=== PATIENT | female | born 1970 | race African-American/Black ===

== ENCOUNTER 2016-11-27 22:05 | Inpatient (IN) | payer OTHER ==
[~2016-11-27] VITALS: Ht 175.3 cm; Wt 99.8 kg
--- NOTE | ~2016-11-27 | 2DMMODE ---
[facility] [address] [place] [address] 2 D/M-MODE ECHOCARDIOGRAM Name: EMILIANA IGNACIO Nahomi Room #: 430-P [facility]#: [id number] Admission: 11/27/16 Attend Phys: Nehemiah Dempsey, Discharge: 11/29/16 Date of : 66 Date of Service: 11/28/16 1635 Report #: [id number] THIS REPORT FOR: //name// APPROVED REPORT Study performed: 11/28/2016 13:34:36 EXAM: Comprehensive 2D, Doppler, and color-flow Echocardiogram Status: routine Other Information Study Quality: Good Risk Factors: Cardiac Risk Factors: HTN, DM Indications Congestive Heart Failure COPD Diabetes Hypertension/HDD 2D Dimensions RVDd: 34.42 mm LVEF(%): 70.95 (>50%) IVSd: 18.77 (7-11mm) LVOT Diam: 19.28 (18-24mm) LVDd: 33.08 mm PWd: 20.20 (7-11mm) Ascending Ao: 30.60 (22-36mm) LVDs: 20.10 (25-40mm) Aortic Root: 29.66 mm IVC: 13.00 mm Koch's LVEF: 70.95 % Volumes Left Atrial Volume (Systole) Single Plane 4CH: 65.65 mL Single Plane 2CH: 59.35 mL LA ESV Index: 31.00 mL/m2 Aortic Valve AoV Peak Chad.: 1.65 m/s AO Peak Gr.: 10.83 mmHg LVOT Max P.78 mmHg LVOT Max V: 1.48 m/s YONY Vmax: 2.63 cm2 Mitral Valve E/A Ratio: 0.8 [facility] [place] [place] [address] 2 D/M-MODE ECHOCARDIOGRAM Name: EMILIANA IGNACIO Room #: [address] [place] [address]#: [id number] Admission: 11/27/16 Attend Phys: Nehemiah Dempsey, Discharge: 11/29/16 Date of : 66 Date of Service: 11/28/16 1635 Report #: [id number] MV Decel. Time: 417.88 ms MV E Max Chad.: 0.90 m/s MV A Chad.: 1.20 m/s MV PHT: 121.19 ms IVRT: 133.79 ms Pulmonary Valve PV Peak Chad.: 1.34 m/s PV Peak Gr.: 7.18 mmHg IL End Vmax: 1.13 m/s Pulmonary Vein P Vein S: 0.37 m/s P Vein A: 0.24 m/s P Vein D: 0.21 m/s P Vein A Dur.: 120.0 msec P Vein S/D Ratio: 1.76 Tricuspid Valve RAP Estimate: 5.00 mmHg Left Ventricle The left ventricle is normal size. Severe concentric left ventricular hypertrophy. Left ventricular systolic function is hyperdynamic. LVEF is >70%. Grade I - abnormal relaxation pattern. Right Ventricle The right ventricle is normal size. The right ventricular systolic function is normal. Atria The left atrium size is normal. The right atrium size is normal. Aortic Valve The aortic valve is normal in structure. No aortic regurgitation is present. There is no aortic valvular stenosis. Mitral Valve The mitral valve is normal in structure. Trace mitral regurgitation. No evidence of mitral valve stenosis. Tricuspid Valve The tricuspid valve is normal in structure. Trace tricuspid regurgitation. Unable to assess PA pressure. Pulmonic Valve The pulmonary valve is normal in structure. Trace pulmonic regurgitation. [place] [id number] 2 D/M-MODE ECHOCARDIOGRAM Name: EMILIANA IGNACIO Room #: 430-P [facility] IN ..#: [id number] Admission: 11/27/16 Attend Phys: Nehemiah Dempsey, Discharge: 11/29/16 Date of : 66 Date of Service: 11/28/16 1635 Report #: [id number] Great Vessels The aortic root is normal in size. IVC is normal in size and collapses >50% with inspiration. Pericardium Trace pericardial effusion. <Conclusion> The left ventricle is normal size. LVEF is >70%. The aortic valve is normal in structure. The mitral valve is normal in structure. The tricuspid valve is normal in structure. Trace tricuspid regurgitation. Unable to assess PA pressure. The pulmonary valve is normal in structure. Trace pulmonic regurgitation. <ELECTRONICALLY SIGNED> By: Jeff Yañez MD 11/28/16 1635 1635 1635 Jeff Yañez MD /INF
--- NOTE | ~2016-11-27 | H ---
[facility] [place] [place] [address] HISTORY AND PHYSICAL Name: EMILIANA IGNACIO Room #: 430-P ADM IN M.R.#: [id number] Admission: 11/27/16 Attend Phys: Nehemiah Dempsey MD Discharge: Date of : 66 Report #: [id number] THIS REPORT FOR: //name// CC: Nehemiah Harman DICTATED BY: Corinne BARRERA ATTENDING PHYSICIAN: Dejan Bruner M.D. PRIMARY CARE PHYSICIAN: Mony Harman M.D. CHIEF COMPLAINT: Chest pain. HISTORY OF PRESENT ILLNESS: The patient is a 46-year-old female who came in to the ER, complaining of chest pain. It actually started yesterday morning while she was doing the dishes. The pain was mostly in her mid chest and went to her left shoulder. It was intermittent, on and off throughout the rest of the day. It seemed to get worse with exertion and better with rest. She did take an aspirin at home. Some episodes made her feel short of breath and nauseated. She denied any vomiting. She has never had this type of pain before. She has a history of mild SC in the past, but has never had any stent. She had a heart catheterization about 8 years ago and was told she has some small blockages. She last had a stress test in 2013, which was negative. She does take a daily aspirin. She was evaluated in the ER and continues to have some pain, has been admitted for further cardiac evaluation. She does admit to cocaine use; the last use was about a week ago. PAST MEDICAL HISTORY: Chronic kidney disease stage 4, CHF with unknown EF, mild coronary artery disease, hypertension, diabetes, hyperlipidemia, duodenitis and heart murmur. PAST SURGICAL HISTORY: and cardiac catheterization. ALLERGIES: BACTRIM and PENICILLIN. HOME MEDICATIONS: Humalog insulin 5 units with meals, [place] 7.5/325 p.r.n., Levemir insulin 8 units at bedtime, albuterol nebulizer q. 4 hours p.r.n., Lexapro 40 mg daily, Neurontin 300 mg daily, Prilosec 40 mg daily, senna daily, trazodone 100 mg at bedtime, Flexeril p.r.n., MiraLax daily, Cardura 2 mg p.o. b.i.d., Cymbalta 20 mg daily, Lasix 40 mg daily, hydralazine 50 mg t.i.d., amlodipine 10 mg daily, aspirin 325 mg daily, iron 325 mg daily, Imdur 30 mg daily, Lidocaine patch daily and metolazone 2.5 mg daily. SOCIAL HISTORY: The patient smokes cigarettes up to a half pack per day. She has been smoking since the age of 18. She does admit to cocaine use. Last use was about a week ago. She also smokes marijuana 1-2 times per month. Her last [facility] [address] [place] [address] HISTORY AND PHYSICAL Name: EMILIANA IGNACIO Room #: 430-P [facility] IN ..#: [id number] Admission: 11/27/16 Attend Phys: Nehemiah Dempsey MD Discharge: Date of : 66 Report #: [id number] use was about 3 weeks ago. She lives at home with her son, [id number] and grandson. She is on disability. She gets around using a cane or a wheeled walker if she goes outside. FAMILY HISTORY: Her father is from [place]. He was also a diabetic. Her mother had diabetes with renal failure, requiring hemodialysis. She has also had a stroke. All of her aunts and uncles have been diabetic as well. REVIEW OF SYSTEMS: A 12-point review of systems was reviewed with the patient, otherwise negative unless stated in the HPI. PHYSICAL EXAMINATION: GENERAL: The patient is an alert female, in no acute distress. VITAL SIGNS: Temperature is 36.6, heart rate 75, respirations 18, blood pressure is 138/85 and oxygen 99% on room air. HEENT: PERRLA. Sclerae are nonicteric. Oral mucosa is pink and moist. NECK: Supple. No JVD noted. CARDIAC: Normal S1, S2 with a 3/6 systolic ejection murmur. RESPIRATORY: Breath sounds are clear, diminished in both bases. Breathing is nonlabored. ABDOMEN: Obese, soft, nontender and nondistended with positive bowel sounds. VASCULAR: No edema noted. Pedal pulses are 2+. NEUROLOGIC: The patient is alert and oriented times 3. Speech is clear. She is moving all extremities equally. No focal neuro deficits noted. SKIN: Intact. No rashes or lesions. LABS AND DIAGNOSTICS: WBC is 4.7, hemoglobin 10.1 and platelets 189,000. Sodium 139, potassium 3.8, BUN 36 and creatinine 3.4. Troponins negative. BNP is 2758. EKG shows sinus rhythm with some nonspecific ST changes. Chest x-ray showed no acute cardiopulmonary process. ASSESSMENT AND PLAN: 1. Chest pain. This does persist. She has not had any recent cardiac workup. So, we will go ahead and order a stress test for morning. If it is abnormal, consult cardiology. We will also check an echocardiogram, check urine drug screen since she does have a history of cocaine use, which may be contributing to her chest pain. Continue with aspirin daily. Check lipid panel and hemoglobin A1c. 2. Congestive heart failure. EF is unknown. She does have elevated BNP, but no signs of acute fluid overload. Check an echocardiogram. 3. Hypertension. Blood pressure is stable. Continue home medications. 4. Chronic kidney disease stage 4. The patient states she is in discussion about getting a fistula placed for future dialysis at some point. So far her creatinine is stable. Follow labs. 5. Substance and tobacco abuse. The patient has been advised to quit. Check urine drug screen. [address] [address] HISTORY AND PHYSICAL Name: EMILIANA IGNACIO Room #: 430-P [facility] IN ..#: [id number] Admission: 11/27/16 Attend Phys: Nehemiah Dempsey MD Discharge: Date of : 66 Report #: [id number] 6. Diabetes. Blood sugars are elevated. Check hemoglobin A1c. Resume home insulin regimen and add sliding scale insulin. 7. Hyperlipidemia. Continue statin therapy and check a lipid panel. 8. Deep venous thrombosis prophylaxis, place SCDs. We will continue to follow the patient closely throughout the hospitalization and make changes based on clinical status. <ELECTRONICALLY SIGNED> By: Dejan Bruner MD 11/28/16 1424 0843 [id number] Dejan Bruner MD /nt
--- NOTE | ~2016-11-27 | EKG ---
[address] [place] [address] ELECTROCARDIOGRAM REPORT Name: EMILIANA IGNACIO Room #: 430-[facility] IN M.R.#: [id number] Admission: 11/27/16 Attend Phys: Nehemiah Dempsey MD Discharge: 11/29/16 Date of : 66 Report #: [id number] THIS REPORT FOR: //name// [facility] Test Date: 2016-11-28 Test Time: 09:36:14 Pat Name: EMILIANA IGNACIO Department: Room: 430 P Gender: F Teaching Music Lessons: miguel : 1970 Requested By: Corinne Ospina Order Number: [id number] MD: Brandon Pederson Measurements Intervals [place] Rate: 57 P: 51 ID: 224 QRS: 10 QRSD: 94 T: 106 QT: 524 QTc: 511 Interpretive Statements Sinus rhythm Prolonged ID interval Probable anterior infarct, old Abnormal T, consider ischemia, lateral leads Prolonged QT interval Compared to ECG 12/31/2010 06:59:48 no significant change was found Electronically Signed On 11-30-2016 8:02:37 CDT by Brandon Pederson [email or web address] <ELECTRONICALLY SIGNED> By: Brandon Pederson MD, [facility] 11/30/16 0802 0936 0936 Brandon Pederson MD, [facility] /EPI
--- NOTE | ~2016-11-27 | EKG ---
[place] [address] [address] [facility] [place] [address] ELECTROCARDIOGRAM REPORT Name: EMILIANA IGNACIO Room #: 430-P [facility] IN M.R.#: [id number] Admission: 11/27/16 Attend Phys: Nehemiah Dempsey MD Discharge: Date of : 66 Report #: [id number] THIS REPORT FOR: //name// [facility] ED Test Date: 2016-11-27 Test Time: 22:02:56 Pat Name: EMILIANA IGNACIO Department: Room: 430 Gender: F Skate Shop Attendant: Lurdes PEREZ : 1970 Requested By: Kesha Soni Order Number: [id number] MD: Brandon Pederson Measurements Intervals [place] Rate: 76 P: 8 KS: 180 QRS: -24 QRSD: 87 T: 101 QT: 454 QTc: 511 Interpretive Statements Sinus rhythm LVH with secondary repolarization abnormality Inferior infarct, old Anteroseptal infarct, age indeterminate Prolonged QT interval No previous ECGs available for comparison Electronically Signed On 11-29-2016 8:45:14 CDT by Brandon Pederson [email or web address] <ELECTRONICALLY SIGNED> By: Brandon Pederson MD, [facility] 11/29/16 0845 01 01 Brandon Pederson MD, [facility] /EPI
[~2016-11-27 22:05] MED LIST: ACETYLCYST200 MG/1 M PO; ADULT LOW DOSE81 MG PO; AMBIEN 10 MG TA10 MG PO; BENICAR HCT 401 EAC1 PO; BYSTOLIC10 MG PO; CLONIDINE PO; HYDROCODON-ACE1 EAC7 PO; LANTUS SC; MAALOX SUSPENS148 ML PO; NORVASC 5 MG TAB5 MG PO; NORVASC10 MG PO; NOVOLOG100 UNIT/1 SQ; PROTONIX40 M2 PO; TOPROL XL25 MG PO; VICODIN PO; ZOCOR 20 MG TAB20 M1 PO
[2016-11-27 22:22] VITALS: BP 134/85
[2016-11-27 22:49] LABS: ABSOLUTE NEUTROPHILS 2.7 thou/uL (1.4-8.2); EOSINOPHILS 5.2 % (0.0-3.0); HEMATOCRIT 29.8 % (37.0-47.0); HEMOGLOBIN 10.1 gm/dL (12.0-15.0); LYMPHOCYTES 30.2 % (24.0-44.0); MANUAL DIFF NO; MCH 26.8 pg (26.0-34.0); MCHC 33.9 g/dL (28.0-37.0); MCV 79.1 fL (80.0-100.0); MONOCYTES 6.8 % (1.0-8.0); PLATELET COUNT 189 thou/uL (150-400); POLYS 56.8 % (36.0-66.0); RBC 3.76 mil/uL (4.20-5.00); RDW 14.8 % (10.5-14.5); WBC 4.7 thou/uL (4.0-11.0)
[2016-11-27 22:54] LABS: ANION GAP 11 mmol/L (7-16); BUN 36 mg/dL (7-18); CALCIUM 8.1 mg/dL (8.5-10.1); CHLORIDE 107 mmol/L (98-107); CO2 21 mmol/L (21-32); CREATININE 3.4 mg/dL (0.6-1.0); GLUCOSE 252 mg/dL (74-106); POTASSIUM 3.8 mmol/L (3.5-5.1); SODIUM 139 mmol/L (136-145)
[2016-11-27 23:05] LABS: NT-PRO BRAIN NAT PEPTIDE 2758 pg/mL (<300); TROPONIN-I < 0.04 ng/mL (<0.04-0.07)
[2016-11-28] MEDS ORDERED: HUMALOG100 UNIT/1 SUBQ (00:10)
[2016-11-28] MEDS ORDERED: LEVEMIR SUBQ (00:11)
[2016-11-28] MEDS ORDERED: HYDROCODONE-APA1 TA1 (00:11)
[2016-11-28] MEDS ORDERED: ATIVAN0.5 M1 (00:12)
[2016-11-28] MEDS ORDERED: ROBITUSSIN DM118 ML PO (00:13)
[2016-11-28] MEDS ORDERED: OXYCODONE-ACET1 EAC2 PO (00:13)
[2016-11-28] MEDS ORDERED: LEXAPRO20 MG PO (00:14)
[2016-11-28] MEDS ORDERED: ALBUTEROL2.5 MG/31 INH (00:14)
[2016-11-28] MEDS ORDERED: NEURONTIN 300300 M1 (00:15)
[2016-11-28] MEDS ORDERED: PRAVACHOL40 MG (00:16)
[2016-11-28] MEDS ORDERED: SENEXON-S TABL1 EACH (00:24)
[2016-11-28] MEDS ORDERED: TRAZODONE HCL100 MG (00:25)
[2016-11-28] MEDS ORDERED: BISAC-EVAC10 MG RECTAL (00:26)
[2016-11-28] MEDS ORDERED: FLEXERIL (00:26)
[2016-11-28] MEDS ORDERED: COREG25 MG PO (00:28)
[2016-11-28] MEDS ORDERED: CARDURA4 MG PO (00:28)
[2016-11-28] MEDS ORDERED: MIRALAX17 GM PO (00:28)
[2016-11-28] MEDS ORDERED: CYMBALTA20 MG (00:29)
[2016-11-28] MEDS ORDERED: LASIX 40 MG TAB40 M2 PO (00:29)
[2016-11-28] MEDS ORDERED: FUROSEMIDE 40 M40 M1 PO (00:29)
[2016-11-28] MEDS ORDERED: IRON325 PO (00:30)
[2016-11-28] MEDS ORDERED: ASPIRIN325 PO (00:30)
[2016-11-28] MEDS ORDERED: AMLODIPINE BESY10 MG PO (00:30)
[2016-11-28] MEDS ORDERED: HYDRALAZINE 5050 MG PO (00:30)
[2016-11-28] MEDS ORDERED: LIDODERM 5%1 PATC1 TRANSDERM (00:31)
[2016-11-28] MEDS ORDERED: IMDUR 30 MG TAB30 M1 PO (00:31)
[2016-11-28] MEDS ORDERED: NEURONTIN600 MG (00:31)
[2016-11-28] MEDS ORDERED: METOLAZONE 2.52.5 M1 (00:32)
[2016-11-28 01:11] VITALS: BP 183/89
[2016-11-28 01:31] VITALS: BP 183/89
[2016-11-28 04:24] LABS: AMP/METHAMP Negative (Negative); BARBITURATES Negative (Negative); BENZODIAZEPINES Negative (Negative); COCAINE POSITIVE (Negative); METHADONE Negative (Negative); OPIATES POSITIVE (Negative); PCP Negative (Negative); THC Negative (Negative)
[2016-11-28 04:35] VITALS: BP 195/86
[2016-11-28 06:36] LABS: CHOLESTEROL 180 mg/dL (<200); HDL CHOLESTEROL 43 mg/dL (>40); LDL CHOLESTEROL 111 mg/dL (<100); TC:HDL 4.2 Ratio (Not establshd); TRIGLYCERIDE 130 mg/dL (<150); TROPONIN-I < 0.04 ng/mL (<0.04-0.07); VLDL 26 mg/dL (<40)
[2016-11-28 08:20] VITALS: BP 174/79
[2016-11-28 12:20] VITALS: BP 188/78
[2016-11-28 19:54] VITALS: BP 130/80
[2016-11-29 03:09] LABS: GLYCOHEMOGLOBIN (HGB A1C) 6.7 % (4.8-5.6)
[2016-11-29 04:00] VITALS: BP 142/70
[2016-11-29 07:33] VITALS: BP 154/78
[2016-11-29 09:44] LABS: HEMATOCRIT 31.2 % (37.0-47.0); HEMOGLOBIN 10.4 gm/dL (12.0-15.0); MCH 26.7 pg (26.0-34.0); MCHC 33.2 g/dL (28.0-37.0); MCV 80.3 fL (80.0-100.0); RBC 3.89 mil/uL (4.20-5.00); RDW 15.3 % (10.5-14.5)
[2016-11-29 10:04] LABS: ALBUMIN 3.3 g/dL (3.4-5.0); CALCIUM 8.7 mg/dL (8.5-10.1); CREATININE 3.9 mg/dL (0.6-1.0); POTASSIUM 3.8 mmol/L (3.5-5.1); TOTAL BILIRUBIN 0.2 mg/dL (<0.1-1.0); TOTAL PROTEIN 6.6 g/dL (6.4-8.2)
[2016-11-29 15:24] VITALS: BP 148/108
== END 2016-11-29 15:44 | disposition home or self-care (01) | DRG 303 ==
LOC: ER 22:05 → EROBS 23:55 → 4E 23:55
PROVIDERS: Emergency Medicine; Internal Medicine; Nurse Practitioner Acute Care
DX: I25.111 Atherosclerotic heart disease of native coronary artery with angina pectoris with documented spasm (principal); N18.4 Chronic kidney disease, stage 4 (severe); I13.0 Hypertensive heart and chronic kidney disease with heart failure and stage 1 through stage 4 chronic kidney disease, or unspecified chronic kidney disease; J44.1 Chronic obstructive pulmonary disease with (acute) exacerbation; I50.9 Heart failure, unspecified; F14.10 Cocaine abuse, uncomplicated; E78.5 Hyperlipidemia, unspecified; F12.90 Cannabis use, unspecified, uncomplicated; E66.9 Obesity, unspecified; F17.210 Nicotine dependence, cigarettes, uncomplicated; E11.22 Type 2 diabetes mellitus with diabetic chronic kidney disease; Z79.4 Long term (current) use of insulin; Z91.81 History of falling; Z68.32 Body mass index [BMI] 32.0-32.9, adult; Z98.61 Coronary angioplasty status; Z82.49 Family history of ischemic heart disease and other diseases of the circulatory system; Z83.3 Family history of diabetes mellitus; Z84.1 Family history of disorders of kidney and ureter; Z88.0 Allergy status to penicillin; Z88.1 Allergy status to other antibiotic agents; Z79.82 Long term (current) use of aspirin; Z79.899 Other long term (current) drug therapy; I25.2 Old myocardial infarction; Z82.3 Family history of stroke; Z71.6 Tobacco abuse counseling
CPT/HCPCS: 10183

== ENCOUNTER 2017-02-05 18:38 | Emergency (ER) | payer OTHER ==
[~2017-02-05] VITALS: Ht 175.3 cm; Wt 97.5 kg
[~2017-02-05 18:38] MED LIST changes: +ALBUTEROL2.5 MG/31 INH; +AMLODIPINE BESY10 MG PO; +ASPIRIN325 PO; +ATIVAN0.5 M1; +BISAC-EVAC10 MG RECTAL; +CARDURA4 MG PO; +COREG25 MG PO; +CYMBALTA20 MG; +FLEXERIL; +FUROSEMIDE 40 M40 M1 PO; +HUMALOG100 UNIT/1 SUBQ; +HYDRALAZINE 5050 MG PO; +HYDROCODONE-APA1 TA1; +IMDUR 30 MG TAB30 M1 PO; +IRON325 PO; +LASIX 40 MG TAB40 M2 PO; +LEVEMIR SUBQ; +LEXAPRO20 MG PO; +LIDODERM 5%1 PATC1 TRANSDERM; +METOLAZONE 2.52.5 M1; +MIRALAX17 GM PO; +NEURONTIN 300300 M1; +NEURONTIN600 MG; +OXYCODONE-ACET1 EAC2 PO; +PRAVACHOL40 MG; +ROBITUSSIN DM118 ML PO; +SENEXON-S TABL1 EACH; +TRAZODONE HCL100 MG
[2017-02-05] MEDS ORDERED: NORCO 5-325 TA1 EACH PO (18:53)
[2017-02-05] MEDS ORDERED: CLEOCIN HCL150 MG PO (18:53)
== END 2017-02-05 19:08 | disposition home or self-care (01) ==
LOC: ER 18:38
DX: K02.9 Dental caries, unspecified (principal); E11.9 Type 2 diabetes mellitus without complications; I13.0 Hypertensive heart and chronic kidney disease with heart failure and stage 1 through stage 4 chronic kidney disease, or unspecified chronic kidney disease; E11.22 Type 2 diabetes mellitus with diabetic chronic kidney disease; N18.9 Chronic kidney disease, unspecified; I50.9 Heart failure, unspecified; J44.9 Chronic obstructive pulmonary disease, unspecified; F12.10 Cannabis abuse, uncomplicated; F17.210 Nicotine dependence, cigarettes, uncomplicated; Z79.4 Long term (current) use of insulin; Z91.81 History of falling; Z88.0 Allergy status to penicillin; Z88.1 Allergy status to other antibiotic agents

== ENCOUNTER 2018-06-22 20:59 | Inpatient (IN) | payer OTHER ==
[~2018-06-22] VITALS: Ht 175.3 cm; Wt 95.9 kg
[~2018-06-22 20:59] MED LIST changes: +CLEOCIN HCL150 MG PO; -NEURONTIN600 MG; +NEURONTIN600 MG PO; +NORCO 5-325 TA1 EACH PO; -TRAZODONE HCL100 MG; +TRAZODONE HCL100 MG PO
[2018-06-22 21:19] LABS: ABSOLUTE NEUTROPHILS 3.1 thou/uL (1.4-8.2); BASOPHILS 0.8 % (0.0-2.0); EOSINOPHILS 3.7 % (0.0-3.0); HEMATOCRIT 25.8 % (37.0-47.0); HEMOGLOBIN 8.8 gm/dL (12.0-15.0); LYMPHOCYTES 24.7 % (24.0-44.0); MCH 27.3 pg (26.0-34.0); MCHC 34.2 g/dL (28.0-37.0); MCV 79.9 fL (80.0-100.0); MONOCYTES 9.7 % (1.0-8.0); PLATELET COUNT 195 thou/uL (150-400); POLYS 61.1 % (36.0-66.0); RBC 3.23 mil/uL (4.20-5.00); RDW 16.8 % (10.5-14.5)
[2018-06-22 21:30] LABS: ANION GAP 10 mmol/L (7-16); BUN 43 mg/dL (7-18); CALCIUM 8.6 mg/dL (8.5-10.1); CHLORIDE 99 mmol/L (98-107); CO2 27 mmol/L (21-32); CREATININE 5.9 mg/dL (0.6-1.0); GLUCOSE 262 mg/dL (74-106); POTASSIUM 4.3 mmol/L (3.5-5.1); SODIUM 136 mmol/L (136-145)
[2018-06-22 21:38] LABS: ALBUMIN 3.2 g/dL (3.4-5.0); SGOT 20 U/L (15-37); SGPT 24 U/L (30-65); TOTAL BILIRUBIN 0.2 mg/dL (<0.1-1.0); TOTAL PROTEIN 7.1 g/dL (6.4-8.2); TROPONIN-I <0.06 ng/mL (<0.06)
--- NOTE | 2018-06-22 22:06 | EKG ---
[facility] [place] [address] ELECTROCARDIOGRAM REPORT Name: EMILIANA IGNACIO [id number] Admission: 06/22/18 Attend Phys: Discharge: Date of : 66 Report #: [id number] THIS REPORT FOR: //name// [facility] ED Test Date: 2018-06-22 Test Time: 21:06:53 Pat Name: EMILIANA IGNACIO Department: Room: Gender: F Broom Worker: PASCUAL : 1970 Requested By: Keith Chavez Order Number: [id number] MD: Nick Troy Measurements Intervals [place] Rate: 80 P: 46 RI: 163 QRS: 42 QRSD: 104 T: 89 QT: 446 QTc: 515 Interpretive Statements Sinus rhythm Borderline low voltage, extremity leads ST elev, probable normal early repol pattern Compared to ECG 11/28/2016 09:36:14 ST (T wave) deviation now present First degree AV block no longer present Myocardial infarct finding no longer present T-wave abnormality no longer present Possible ischemia no longer present Electronically Signed On 06-22-2018 22:06:20 ELECTRONIC EQUIPMENT MAINT TECH by Nick Troy [email or web address] <ELECTRONICALLY SIGNED> By: Nick Troy MD 06/22/182205 05 05 Nick Troy MD /EPI
[2018-06-22 23:14] VITALS: BP 144/67
[2018-06-23] VITALS (7 sets, daily range): BP systolic 128–191; BP diastolic 53–93
[2018-06-23 01:20] LABS: AMP/METHAMP Negative (Negative); BARBITURATES Negative (Negative); BENZODIAZEPINES Negative (Negative); COCAINE POSITIVE (Negative); METHADONE Negative (Negative); OPIATES POSITIVE (Negative); PCP Negative (Negative)
[2018-06-23 04:03] LABS: ANION GAP 8 mmol/L (7-16); BUN 48 mg/dL (7-18); CALCIUM 8.1 mg/dL (8.5-10.1); CHLORIDE 102 mmol/L (98-107); CO2 29 mmol/L (21-32); CREATININE 6.1 mg/dL (0.6-1.0); GLUCOSE 167 mg/dL (74-106); POTASSIUM 4.5 mmol/L (3.5-5.1); SODIUM 139 mmol/L (136-145); TROPONIN-I <0.06 ng/mL (<0.06)
[2018-06-23 04:06] LABS: HEMATOCRIT 23.2 % (37.0-47.0); HEMOGLOBIN 7.9 gm/dL (12.0-15.0); MCH 27.1 pg (26.0-34.0); MCHC 34.2 g/dL (28.0-37.0); MCV 79.1 fL (80.0-100.0); RBC 2.93 mil/uL (4.20-5.00); RDW 17.2 % (10.5-14.5); WBC 5.1 thou/uL (4.0-11.0)
--- NOTE | 2018-06-23 08:00 | NUR ---
Pt admitted to CCU from ER at about 2330. Pt a/o x 4, RA/O2 2L NC PRN. C/o chest pain and chronic back pain, pain under control with ordered pain meds PRN. SR. VSS. No apparent distress noted during bedside report this AM.
--- NOTE | 2018-06-23 08:29 | EKG ---
[place] [address] [facility] [address] [place] [address] ELECTROCARDIOGRAM REPORT Name: EMILIANA IGNACIO Room #: 206-P ADM IN M.R.#: [id number] Admission: 06/22/18 Attend Phys: Alberto Templeton MD Discharge: Date of : 66 Report #: [id number] THIS REPORT FOR: //name// [facility] ED Test Date: 2018-06-22 Test Time: 21:50:22 Pat Name: EMILIANA IGNACIO Department: Room: 206 Gender: F Game Moderator: PASCUAL : 1970 Requested By: Bruno Stanford Order Number: [id number] MD: Brandon Pederson Measurements Intervals [place] Rate: 70 P: 17 KS: 183 QRS: 8 QRSD: 92 T: 82 QT: 463 QTc: 500 Interpretive Statements Sinus rhythm ST elev, probable normal early repol pattern Borderline prolonged QT interval Compared to ECG 06/22/2018 21:06:53 No significant changes Electronically Signed On 06-23-2018 8:29:03 DIRECTOR OF PROGRAMMING by Brandon Pederson [email or web address] <ELECTRONICALLY SIGNED> By: Brandon Pederson MD, [facility] 06/23/18 0829 49 49 Brandon Pederson MD, [facility] /EPI
--- NOTE | 2018-06-23 08:35 | EKG ---
[place] [address] [facility] [place] [address] ELECTROCARDIOGRAM REPORT Name: EMILIANA IGNACIO Room #: 206-P ADM IN M.R.#: [id number] Admission: 06/22/18 Attend Phys: Alberto Templeton MD Discharge: Date of : 66 Report #: [id number] THIS REPORT FOR: //name// [facility] Test Date: 2018-06-23 Test Time: 06:48:44 Pat Name: EMILIANA IGNACIO Department: Room: 206 P Gender: F Supervisory Air Intercept Controller: IRVING : 1970 Requested By: Africa Wiseman Order Number: [id number] MD: Brandon Pederson Measurements Intervals [place] Rate: 64 P: 9 MD: 204 QRS: -12 QRSD: 98 T: 78 QT: 492 QTc: 508 Interpretive Statements Sinus rhythm Borderline prolonged MD interval Inferior infarct, old Repolarization abnormality Poor R wave progression Compared to ECG 06/22/2018 21:06:53 No significant change was found Electronically Signed On 06-23-2018 8:35:26 SENIOR WEB DEVELOPER by Brandon Pederson [email or web address] <ELECTRONICALLY SIGNED> By: Brandon Pederson MD, [facility] 06/23/18 0835 7 7 Brandon Pederson MD, [facility] /EPI
--- NOTE | 2018-06-23 13:05 | 2DMMODE ---
[facility] [place] [address] 2 D/M-MODE ECHOCARDIOGRAM Name: EMILIANA IGNACIO Nahomi Room #: 206-P [facility] IN [facility]#: [id number] Admission: 06/22/18 Attend Phys: Alberto Templeton MD Discharge: Date of : 66 Date of Service: 06/23/18 1304 Report #: [id number] THIS REPORT FOR: //name// APPROVED REPORT Study performed: 06/23/2018 10:13:21 EXAM: Comprehensive 2D, Doppler, and color-flow Echocardiogram Patient Location: Echo lab Status: routine BSA: 2.11 HR: 77 bpm BP: 155/70 mmHg Rhythm: NSR Other Information Study Quality: Adequate Indications COPD Diabetes Dyspnea CAD Hypertension/HDD 2D Dimensions RVDd: 41.16 mm IVSd: 16.74 (7-11mm) LVOT Diam: 18.90 (18-24mm) LVDd: 46.59 mm PWd: 12.54 (7-11mm) Ascending Ao: 26.76 (22-36mm) LVDs: 21.31 (25-40mm) Aortic Root: 30.02 mm IVC: 21.00 mm Volumes Left Atrial Volume (Systole) Single Plane 4CH: 100.03 mL Single Plane 2CH: 78.65 mL LA ESV Index: 45.00 mL/m2 Aortic Valve AoV Peak Chad.: 1.82 m/s AO Peak Gr.: 13.31 mmHg LVOT Max P.28 mmHg LVOT Max V: 1.44 m/s YONY Vmax: 2.[address] [facility] [address] [place] [address] 2 D/M-MODE ECHOCARDIOGRAM Name: CAROL IGNACIOKallie Comer Room #: 206-P [facility] IN [facility].#: [id number] Admission: 06/22/18 Attend Phys: Alberto Templeton MD Discharge: Date of : 66 Date of Service: 06/23/18 1304 Report #: [id number] Mitral Valve E/A Ratio: 1.2 MV Decel. Time: 270.08 ms MV E Max Chad.: 1.51 m/s MV A Chad.: 1.31 m/s MV PHT: 78.32 ms IVRT: 69.20 ms Pulmonary Valve PV Peak Chad.: 1.36 m/s PV Peak Gr.: 7.41 mmHg Pulmonary Vein P Vein S: 0.71 m/s P Vein A: 0.29 m/s P Vein D: 0.88 m/s P Vein A Dur.: 107.3 msec P Vein S/D Ratio: 0.81 Tricuspid Valve TR Peak Chad.: 2.51 m/s TR Peak Gr.: 25.26 mmHg PA Pressure: 35.00 mmHg Left Ventricle The left ventricle is normal size. Moderate severe concentric left ventricular hypertrophy. Left ventricular systolic function is hyperdynamic. LVEF is >70%. The left ventricular diastolic function is abnormal. Right Ventricle The right ventricle is normal size. The right ventricular systolic function is normal. Atria Left atrium is dilated. Right atrium is at the upper limits of normal. Aortic Valve The aortic valve is normal in structure. No aortic regurgitation is present. There is no aortic valvular stenosis. Mitral Valve The mitral valve is normal in structure. Mild mitral regurgitation. No evidence of mitral valve stenosis. Tricuspid Valve The tricuspid valve is normal in structure. There is trace tricuspid regurgitation. Estimated PAP 35 mmHg. There is mild pulmonary [facility] [address] [place] [address] 2 D/M-MODE ECHOCARDIOGRAM Name: EMILIANA IGNACIO Room #: 206-P [facility] IN ..#: [id number] Admission: 06/22/18 Attend Phys: Alberto Templeton MD Discharge: Date of : 66 Date of Service: 06/23/18 1304 Report #: [id number] hypertension. Pulmonic Valve The pulmonary valve is normal in structure. Trace pulmonic regurgitation. Great Vessels The aortic root is normal in size. IVC is dilated and collapses <50% with inspiration. Pericardium There is no pericardial effusion. <Conclusion> The left ventricle is normal size. Moderate severe concentric left ventricular hypertrophy. LVEF is >70%. The left ventricular diastolic function is abnormal. The right ventricle is normal size. Left atrium is dilated. Mild mitral regurgitation. There is trace tricuspid regurgitation. Estimated PAP 35 mmHg. There is mild pulmonary hypertension. The aortic root is normal in size. There is no pericardial effusion. <ELECTRONICALLY SIGNED> By: Jeremie Beavers MD, FACC 06/23/18 1304 1304 1304 Jeremie Beavers MD, FACC /INF
--- NOTE | 2018-06-23 14:12 | NUR ---
MET WITH PATIENT SHE RESIDES IN INDEPENDENT HOME WITH NIECE. SHE REPORTS NIECE WORKS AT [facility] BUT IS VERY HELPFUL TO PATIENT. SHE ASSISTS WITH LAUNDRY, MEAL PREP. SHE REPORTS ALL NEEDS ON ONE LEVEL. SHE HAS A CANE/WALKER NEEDED. SHE PLANS HOME AT DC BUT FEELS SHE MAY NEED OXYGEN AT HOME. [facility] FOLLOWING FOR DC PLANNING.
[2018-06-24] VITALS (7 sets, daily range): BP systolic 107–172; BP diastolic 44–91
--- NOTE | 2018-06-24 03:11 | NUR ---
[facility] 1900. VSS. ASSESSMENT CHARTED. PT C/O LEFT NECK PAIN, MID CHEST, CONTROLED WITH PRN PAIN MEDS. PT HAS NO OTHER CONCERNS AND IS SLEEPING WELL. PLAN FOR AM LABS AND HEMODIALYSIS TODAY. WILL CONTINUE TO MONITOR AND WITH POC.
--- NOTE | 2018-06-24 10:13 | NUR ---
Assess due to consult received for pt with diabetes and ESRD/dialysis. Good appetite and able to identify foods she avoids due to high Na, and K+ content. BG controlled. Wt down about 10 lb past year. Low nutrition risk
--- NOTE | 2018-06-24 13:12 | NUR ---
[facility] . NOTIFIED CLINIC THAT PT. IS DISCHARGING TODAY TO HOME.
[2018-06-24] MEDS ORDERED: IPRAT-ALBUT 0.5-3 ML INH (13:18)
[2018-06-24] MEDS ORDERED: PREDNISONE 20 M20 M1 PO (13:18)
[2018-06-24] MEDS ORDERED: COZAAR 50 MG TA50 M1 PO (13:18)
[2018-06-24] MEDS ORDERED: PEPCID20 MG PO (13:18)
[2018-06-24] MEDS ORDERED: ACETAMINOPHEN325 M1 PO (13:18)
[2018-06-24] MEDS ORDERED: COLACE 100 MG100 MG PO (13:18)
--- NOTE | 2018-06-24 13:19 | NUR ---
patient to discharge today. She dializes tues, thsun, sat at Dialysis clinic. DC landscape architect and planner to update clinic of tenative discharge. Patient needs cab ride home. Verified address she is to have dialysis later today so late dc. RN to arrange cab with security
--- NOTE | 2018-06-24 16:59 | NUR ---
FAXED REFERRAL TO [facility] PT. DISCHARGING TODAY TO HOME WITH HH. WILL F/U IN AM WITH AGENCY. DCP TO FOLLOW.
--- NOTE | 2018-06-24 17:12 | NUR ---
patient to dc home with HH. Late dc with orders for home health. Patient reports she has an aide that assists during day. Reviewed HH order for therapy but may need an eval. Patient agreeable and no preference for HH. DC nurse discharge planner assisting with arranging.
--- NOTE | 2018-06-24 20:39 | NUR ---
ASSUMED CARE OF PT AT 0700. PT A&OX4, COMPLAINS OF PAIN THAT IS CONTROLLED WITH MED. PT STATES SHE IS BREATHING BETTER AND IS NOT USING OXYGEN. DIALYSIS NURSE CALLED TO NOTIFY THAT DR. LITTLE HAD PUT IN DIALYSIS ORDERS. DIALYSIS NURSE ARRIVED APPROX 1430. I TALKED WITH DR. SOTO IN THE AM REGARDING GIVING PT IV MORPHINE FOR PAIN AND HE ORDERED NOT TO GIVE SINCE PT WILL BE DISCHARGING. PT GIVEN TYLENOL PO AND DID NOT COMPLAIN FURTHER OF PAIN. AFTER DIALYSIS, APPROX 1830, PT DISCHARGED. PT COMMUNICATED UNDERSTANDING OF ALL DISCHARGE ORDERS/MEDS AND FOLLOW UP APPTS. HOME HEALTH ORDERED. PT STATED SHE HAD ALL BELONGINGS. TELE AND IV REMOVED. PT GIVEN TAXI VOUCHER. PT TAKEN TO SECURITY TO COLLECT BELONGINGS AND GET TAXI.
[2018-06-25 10:03] VITALS: BP 107/44
--- NOTE | 2018-06-27 09:41 | HC ---
[facility] [place] [address] CONSULTATION Name: EMILIANA IGNACIO Room #: 206-P [facility] IN M.R.#: [id number] Admission: 06/22/18 Attend Phys: Alberto Templeton MD Discharge: 06/24/18 Date of : 66 Report #: [id number] THIS REPORT FOR: //name// CC: Mony Templeton REASON FOR CONSULTATION: End-stage renal disease. REASON FOR PRESENTATION: Shortness of breath. HISTORY OF PRESENT ILLNESS: A 47-year-old with past medical history of end-stage renal disease due to diabetes mellitus. She is maintained on hemodialysis every Saturday, and Saturday. She dialyzes with another group. She presented reporting that she has been having shortness of air. She describes the shortness of breath as sudden onset that started yesterday. This was associated with some chest tightness. She had history of coronary artery disease in the past. She last dialyzed on Saturday. Her chest pain was associated with nausea and vomiting. She also reported orthopnea. After being managed in the Emergency Room, she reported some improvement in her overall condition. O2 sat was 100% on 2 liter. I am being asked to evaluate her and manage her end-stage renal disease. PAST MEDICAL HISTORY: 1. End-stage renal disease, maintained on hemodialysis every Saturday, and Saturday. 2. Coronary artery disease. 3. Diabetes mellitus. 4. Hyperlipidemia. 5. Anemia. ALLERGIES: PENICILLIN AND SEPTRA. MEDICATIONS: 1. Gabapentin. 2. Insulin. 3. Carvedilol. 4. Hydralazine. 5. Amlodipine. SURGICAL HISTORY: 1. . 2. Cardiac catheterization. 3. Looped AV graft, forearm. SOCIAL HISTORY: She denies drug or alcohol abuse; however, she tested positive for cocaine and opiates. [facility] [address] [place] [address] CONSULTATION Name: EMILIANA IGNACIO Room #: 206-P [facility] IN [facility].#: [id number] Admission: 06/22/18 Attend Phys: Alberto Templeton MD Discharge: 06/24/18 Date of : 66 Report #: [id number] REVIEW OF SYSTEMS: GENERAL: No fever or chills. CARDIOVASCULAR: As per the history of present illness. PULMONARY: No cough or hemoptysis. GASTROINTESTINAL: No nausea or vomiting. NEUROLOGICAL: No headache, no dizziness. PHYSICAL EXAMINATION: GENERAL: She is alert and oriented, in no apparent distress. VITAL SIGNS: Temperature 36.7, blood pressure 172/73. HEAD AND NECK: No jugular venous distention. CHEST: No crackles. CARDIOVASCULAR: No rub detected. ABDOMEN: Soft, nontender with no hepatosplenomegaly. LOWER EXTREMITIES: No edema. LABORATORY DATA: Reviewed. Hemoglobin 7.9, BUN is 48, creatinine is 6.1. Troponins negative. Chest x-ray reviewed with no acute process. ASSESSMENT, IMPRESSION AND PLAN: 1. Hypertensive urgency due to cocaine. 2. End-stage renal disease. 3. Coronary artery disease. 4. Anemia. 5. Diabetes mellitus. 6. Her issues are related to cocaine abuse. Blood pressure is being high because of her history of cocaine abuse. From the renal perspective, we will continue to dialyze her as usual every Saturday, and Saturday. 7. Continue to summer camp counselor about substance abuse. 8. Resume her home medications. We will continue to follow. <ELECTRONICALLY SIGNED> By: Sabine Haines MD 06/27/18 0941 0750 1119 Sabine Haines MD /nt
== END 2018-06-24 20:00 | disposition home health service (06) | DRG 917 ==
LOC: ER 20:59 → 2N 22:38 → EROBS 22:38 → 2N 23:44
PROVIDERS: Emergency Medicine; Nurse Practitioner Family; ADMIT Internal Medicine
PROC: 5A1D70Z Performance of Urinary Filtration, Intermittent, Less than 6 Hours Per Day (ICD-10-PCS; principal; 2018-06-23)
DX: T40.5X1A Poisoning by cocaine, accidental (unintentional), initial encounter (principal); N18.6 End stage renal disease; J44.1 Chronic obstructive pulmonary disease with (acute) exacerbation; I13.2 Hypertensive heart and chronic kidney disease with heart failure and with stage 5 chronic kidney disease, or end stage renal disease; I16.1 Hypertensive emergency; I15.8 Other secondary hypertension; I50.9 Heart failure, unspecified; F14.10 Cocaine abuse, uncomplicated; I25.10 Atherosclerotic heart disease of native coronary artery without angina pectoris; E78.5 Hyperlipidemia, unspecified; D63.8 Anemia in other chronic diseases classified elsewhere; E11.22 Type 2 diabetes mellitus with diabetic chronic kidney disease; F17.210 Nicotine dependence, cigarettes, uncomplicated; Z98.891 History of uterine scar from previous surgery; Z91.81 History of falling; I25.2 Old myocardial infarction; Z71.51 Drug abuse counseling and surveillance of drug abuser; Z79.4 Long term (current) use of insulin; Z79.82 Long term (current) use of aspirin; Z79.899 Other long term (current) drug therapy; Z88.0 Allergy status to penicillin; Z88.2 Allergy status to sulfonamides; Z88.1 Allergy status to other antibiotic agents; Y92.89 Other specified places as the place of occurrence of the external cause; Z71.6 Tobacco abuse counseling
CPT/HCPCS: 10081; 32100

== ENCOUNTER 2018-07-29 16:50 | Inpatient (IN) | payer OTHER ==
[~2018-07-29] VITALS: Ht 175.3 cm; Wt 100.2 kg
[2018-07-29] VITALS (14 sets, daily range): BP systolic 163–224; BP diastolic 68–100
--- NOTE | ~2018-07-29 | EKG ---
[address] [address] ELECTROCARDIOGRAM REPORT Name: EMILIANA IGNACIO Room #: 208-P ADM IN M.R.#: [id number] ������������������ Admission: 07/29/18 ������������������ Attend Phys: Nehemiah Dempsey MD Discharge: ������������������ Date of : 66 Report #: [id number] ����������������������������������������������������������������� [id number] THIS REPORT FOR: //name// [facility] Test Date: 2018-08-01 Test Time: 11:23:06 Pat Name: EMILIANA IGNACIO Department: Room: 208 P Gender: F Pond Scaler: JUDD : 1970 Requested By: Conor Lemus Order Number: [id number] MD: Measurements Intervals [place] Rate: 67 P: 51 [place]: 181 QRS: -1 QRSD: 101 T: 86 QT: 492 QTc: 520 Interpretive Statements Sinus rhythm Probable left ventricular hypertrophy Prolonged QT interval Compared to ECG 07/29/2018 21:39:50 T-wave abnormality no longer present Poor R-wave progression no longer present [email or web address] ��������������������������������������������� ���������������������������������������� By: ��������������������������������������������� 1123 [facility]3 Epiphany EpiphanyMD /EPI
[~2018-07-29 16:50] MED LIST changes: +ACETAMINOPHEN325 M1 PO; +CARDURA2 MG PO; -CARDURA4 MG PO; +COLACE 100 MG100 MG PO; +COZAAR 50 MG TA50 M1 PO; -CYMBALTA20 MG; +CYMBALTA20 MG PO; -IMDUR 30 MG TAB30 M1 PO; +IMDUR 60 MG TAB60 M1 PO; +IPRAT-ALBUT 0.5-3 ML INH; +LANTUS100 UNIT/M SUBQ; -LEVEMIR SUBQ; -LIDODERM 5%1 PATC1 TRANSDERM; +LIDODERM1 EACH TOP; -METOLAZONE 2.52.5 M1; +METOLAZONE 2.52.5 M1 PO; +PEPCID20 MG PO; +PREDNISONE 20 M20 M1 PO
[2018-07-29 17:31] LABS: HEMATOCRIT 31.4 % (37.0-47.0); HEMOGLOBIN 10.4 gm/dL (12.0-15.0); MCH 26.7 pg (26.0-34.0); MCHC 33.1 g/dL (28.0-37.0); MCV 80.9 fL (80.0-100.0); RBC 3.89 mil/uL (4.20-5.00); RDW 18.3 % (10.5-14.5); WBC 5.1 thou/uL (4.0-11.0)
--- NOTE | 2018-07-29 17:36 | EKG ---
[facility] [place] [address] ELECTROCARDIOGRAM REPORT Name: EMILIANA IGNACIO [facility] [id number] ������������������ Admission: 07/29/18 ������������������ Attend Phys: Discharge: ������������������ Date of : 66 Report #: [id number] ����������������������������������������������������������������� [id number] THIS REPORT FOR: //name// [facility] ED Test Date: 2018-07-29 Test Time: 17:11:42 Pat Name: EMILIANA IGNACIO Department: Room: Gender: F Life Skills Educator: PATSY : 1970 Requested By: Sandhya Perry Order Number: [id number] MD: Brandon Pederson Measurements Intervals [place] Rate: 83 P: 45 [place]: 171 QRS: 12 QRSD: 96 T: 87 QT: 433 QTc: 509 Interpretive Statements Sinus rhythm Anteroseptal infarct, old Compared to ECG 06/23/2018 06:48:44 No significant change was found Electronically Signed On 07-29-2018 17:36:25 WORM RAISER by Brandon Pederson [email or web address] ��������������������������������������������� <ELECTRONICALLY SIGNED> ���������������������������������������� By: Brandon Pederson MD, [facility] ��������������������������������������������� 07/29/18 1736 1711 1711 Brandon Pederson MD, [facility]ACC /EPI
[2018-07-29 17:41] LABS: ANION GAP 6 mmol/L (7-16); BUN 26 mg/dL (7-18); CALCIUM 7.8 mg/dL (8.5-10.1); CHLORIDE 100 mmol/L (98-107); CO2 31 mmol/L (21-32); CREATININE 4.4 mg/dL (0.6-1.0); GLUCOSE 252 mg/dL (74-106); POTASSIUM 3.4 mmol/L (3.5-5.1); SODIUM 137 mmol/L (136-145)
[2018-07-29 17:49] LABS: ALBUMIN 2.9 g/dL (3.4-5.0); SGOT 10 U/L (15-37); SGPT 13 U/L (30-65); TOTAL BILIRUBIN 0.7 mg/dL (<0.1-1.0); TOTAL PROTEIN 6.4 g/dL (6.4-8.2); TROPONIN-I <0.06 ng/mL (<0.06)
[2018-07-29 21:41] LABS: INR 1.1; PROTIME 11.7 Seconds (9.3-11.4)
[2018-07-30] VITALS (27 sets, daily range): BP systolic 119–185; BP diastolic 60–97
--- NOTE | 2018-07-30 05:21 | NUR ---
ASSUMED CARE OF PATIENT FROM ER. PATIENT STATED CHEST PAIN WAS 7, LEFT SIDE RADIATING. VLAD HYDRAULIC PRESS OPERATOR NOTIFIED, ORDERS OBTAINED FOR EKG, MORPHINE AND NITRO. BLOOD PRESSURES EXTREMELY HIGH, SEE DOCUMENTATION. UNABLE TO REDUCE BLOOD PRESSURE, HOME CARDIAC MEDS GIVEN, IV HYDRALAZINE AT 0100. BP NOW TRENDING DOWNWARDS. CONTINUES TO BE MONITORED CLOSELY. HEPARIN GTT INFUSING, COAGS DRAWN PER PROTOCOL, GTT TITRATED PER PROTOCOL. CARDIOLOGY CONSULTED. POC GOALS ESTABLISHED.
[2018-07-30 05:51] LABS: HEMATOCRIT 30.2 % (37.0-47.0); HEMOGLOBIN 9.6 gm/dL (12.0-15.0); MCHC 31.8 g/dL (28.0-37.0); MCV 81.7 fL (80.0-100.0); RBC 3.7 mil/uL (4.20-5.00); RDW 18.8 % (10.5-14.5); WBC 3.3 thou/uL (4.0-11.0)
[2018-07-30 06:10] LABS: ANION GAP 8 mmol/L (7-16); BUN 32 mg/dL (7-18); CHLORIDE 101 mmol/L (98-107); CO2 28 mmol/L (21-32); CREATININE 5.6 mg/dL (0.6-1.0); GLUCOSE 181 mg/dL (74-106); POTASSIUM 4.2 mmol/L (3.5-5.1); SODIUM 137 mmol/L (136-145); TROPONIN-I <0.06 ng/mL (<0.06)
--- NOTE | 2018-07-30 09:37 | EKG ---
[place] [address] [facility] [place] [address] ELECTROCARDIOGRAM REPORT Name: EMILIANA IGNACIO Room #: 204-P ADM IN M.R.#: [id number] ������������������ Admission: 07/29/18 ������������������ Attend Phys: Nehemiah Dempsey MD Discharge: ������������������ Date of : 66 Report #: [id number] ����������������������������������������������������������������� [id number] THIS REPORT FOR: //name// [facility] Test Date: 2018-07-29 Test Time: 21:39:50 Pat Name: EMILIANA IGNACIO Department: Room: 204 P Gender: F Home Lending Officer: Grupo FLORES : 1970 Requested By: Corinne Ospina Order Number: [id number] MD: Brandon Pederson Measurements Intervals [place] Rate: 73 P: 45 [place]: 171 QRS: 32 QRSD: 98 T: 91 QT: 467 QTc: 515 Interpretive Statements Sinus rhythm Nonspecific T abnormalities, lateral leads Poor R wave progression Prolonged QT interval Compared to ECG 07/29/2018 17:11:42 no significant change was found Electronically Signed On 07-30-2018 9:37:39 PAYABLE REPRESENTATIVE by Brandon Pederson [email or web address] ��������������������������������������������� <ELECTRONICALLY SIGNED> ���������������������������������������� By: Brandon Pederson MD, [facility] ��������������������������������������������� 07/30/18 0937 38 Brandon Pederson MD, [facility] /EPI
--- NOTE | 2018-07-30 10:21 | NUR ---
Nutrition: Pt admit with CP during dialysis. Consult received. Pt reports current weight up due to fluid. Appetite is normal on heart healthy, carb controlled diet. Voices understanding of diet/foods to avoid. Low risk.
--- NOTE | 2018-07-30 13:52 | NUR ---
PT ALERT AND ORIENTED TIMES FOUR. VSS, 94%2L, SR ON TELE. PT C/O LEFT AIDE CHEST PAIN (DR THOMAS). PRN PAIN MEDICATIONS GIVEN WITH RELEIF. PT TOLERATES MEDS AND MEALS. PT WORKED WELL WITH PT/OT WALKING AROUND THE UNIT WITH CANE STEADY GAIT. PT SLOWLY PROGRESSING TOWRADS POC GOALS.
[2018-07-31] VITALS (8 sets, daily range): BP systolic 159–201; BP diastolic 75–84
[2018-07-31 03:52] LABS: ALBUMIN 2.9 g/dL (3.4-5.0); ANION GAP 7 mmol/L (7-16); BUN 44 mg/dL (7-18); CALCIUM 8.4 mg/dL (8.5-10.1); CHLORIDE 101 mmol/L (98-107); CO2 29 mmol/L (21-32); GLUCOSE 125 mg/dL (74-106); MAGNESIUM 2.1 mg/dL (1.8-2.4); PHOSPHORUS 7.4 mg/dL (2.5-4.9); POTASSIUM 5.1 mmol/L (3.5-5.1); SODIUM 137 mmol/L (136-145); TROPONIN-I <0.06 ng/mL (<0.06)
[2018-07-31 03:56] LABS: CREATININE 6.6 mg/dL (0.6-1.0)
[2018-07-31 04:39] LABS: HEMATOCRIT 33.2 % (37.0-47.0); HEMOGLOBIN 10.7 gm/dL (12.0-15.0); MCH 26.3 pg (26.0-34.0); MCHC 32.1 g/dL (28.0-37.0); MCV 81.8 fL (80.0-100.0); RBC 4.06 mil/uL (4.20-5.00); RDW 18.2 % (10.5-14.5); WBC 4.8 thou/uL (4.0-11.0)
--- NOTE | 2018-07-31 05:48 | NUR ---
pt resting quietly in room, prn pain med given for intermittent cp, bp elevated to 201/84 this am prn hydralazine given, dialysis planned for this am, will con't to monitor per ppoc.
[2018-07-31] MEDS ORDERED: PHENERGAN 25 MG25 M1 PO (14:29)
[2018-07-31] MEDS ORDERED: NITROGLYCERIN0.4 MG SUBLING (14:29)
[2018-07-31] MEDS ORDERED: ROBAXIN 750 MG750 M1 PO (14:29)
[2018-07-31] MEDS ORDERED: GABAPENTIN 100100 MG PO (14:30)
[2018-07-31] MEDS ORDERED: TRADJENTA5 MG (14:30)
[2018-07-31] MEDS ORDERED: ERGOCALCIF50000 UNIT PO (14:30)
[2018-07-31] MEDS ORDERED: REMERON15 MG PO (14:30)
[2018-07-31] MEDS ORDERED: PROTONIX40 M1 PO (14:30)
[2018-07-31] MEDS ORDERED: ATORVASTATIN CA40 MG PO (14:31)
[2018-07-31] MEDS ORDERED: TRAZODONE HCL50 MG PO (14:31)
[2018-07-31] MEDS ORDERED: ZOLOFT50 MG PO (14:31)
[2018-07-31] MEDS ORDERED: RENVELA800 MG PO (14:31)
--- NOTE | 2018-07-31 16:15 | NUR ---
Case opened to follow for dc planning. Pt is a&ox4 but with difficulty discussing her prior living due to sob. Nursing and RT notified. Pt may need home o2 assessment prior to dc. She would like home oxygen arranged if she qualifies. She confirmed that all info is the same since her visit here last month. She has hh per [facility] and goes to dialysis at [facility] T//SAT. She has a cane and a rwalker. [facility] is following along.
--- NOTE | 2018-07-31 19:26 | NUR ---
ASSUMED CARE OF PATIENT AT 0700. COMPLAINS OF LEFT SIDED NONCARDIAC PAIN WHICH IS ALLEVIATED WITH PAIN MED. PATIENT UNDERWENT HEMODIALYSIS THIS A.M. AND TOLERATED WELL. PATIENT COMPLAINED OF NAUSEA DURING DIALYSIS AND WAS TREATED WITH ZOFRAN. ASSESSMENT CHARTED. PER DR. DAS, TELE WAS D/C AND PATIENT WAS CHANGED TO M/S STATUS PER DR. POSADA. PATIENT MOVED TO ROOM 208 DUE TO NO TELE NEEDS AFTER DIALYSIS. PATIENT IS TO OBTAIN RESTING AND EXERCISE OXIMETRY. WILL CONTINUE TO MONITOR AND FOLLOW WITH POC.
[2018-08-01 05:07] VITALS: BP 156/77
[2018-08-01 05:53] LABS: HEMATOCRIT 30.6 % (37.0-47.0); MCH 26.5 pg (26.0-34.0); MCHC 32.7 g/dL (28.0-37.0); MCV 81.1 fL (80.0-100.0); RBC 3.77 mil/uL (4.20-5.00); RDW 17.8 % (10.5-14.5); WBC 4.3 thou/uL (4.0-11.0)
[2018-08-01 06:06] LABS: POTASSIUM 4.4 mmol/L (3.5-5.1)
[2018-08-01 06:08] LABS: CREATININE 5.6 mg/dL (0.6-1.0)
--- NOTE | 2018-08-01 06:58 | NUR ---
ASSUMED CARE OF PATIENT AROUND 1900. PATIENT DENIES CONCERNS AT THIS TIME. RESTING MOST OF SHIFT. PROGRESSING TOWARDS GOALS, EAGER TO GO HOME. WILL CONTINUE TO MONITOR.
[2018-08-01 07:50] VITALS: BP 136/59
--- NOTE | 2018-08-01 09:22 | HC ---
[facility] [place] [address] CONSULTATION Name: EMILIANA IGNACIO Room #: 208-P [facility] IN .R.#: [id number] Admission: 07/29/18 ������������������ Attend Phys: Nehemiah Dempsey MD Discharge: ������������������ Date of : 66 Report #: [id number] THIS REPORT FOR: //name// CC: Nehemiah Harman DATE OF SERVICE: 07/30/2018 REASON FOR CONSULTATION: End-stage renal disease. HISTORY OF PRESENT ILLNESS: The patient is known to our service from previous admissions at this hospital. She dialyzes at [facility]. She dialyzed yesterday. She was hospitalized at this hospital last month after a binge on cocaine with hypertension and cardiovascular issues. She had a nuclear stress test that was negative for ischemia. She has had some confusion, shortness of air and chest discomfort, came to the Emergency Room, with dialysis yesterday she did have 4 liters of fluid pulled off on dialysis, so yesterday she was admitted. She got IV morphine and has continued to get IV morphine since admission and a review of prior record shows that every time she shows up at the hospital whether admitted or not, when she comes to the Emergency Room she does receive IV morphine. HOME MEDICATIONS: Include as listed, amlodipine 10 mg daily, aspirin 325 mg daily, carvedilol 25 mg b.i.d., Cardura 2 mg b.i.d., Cymbalta 20 mg b.i.d., Pepcid 20 mg daily, iron, hydralazine 50 mg t.i.d., insulin, isosorbide mononitrate 30 mg daily, albuterol inhaler, metolazone 2.5 mg daily, Pravachol 40 mg daily, prednisone 40 mg daily stated for COPD and trazodone 100 mg daily. PAST MEDICAL HISTORY: Longstanding diabetes mellitus, left arm AV graft and previous chest pain, heart catheterization and nuclear stress test all negative for cardiac ischemia. FAMILY HISTORY: Strongly positive for diabetes and end-stage renal disease with multiple family members on dialysis. PAST SURGICAL HISTORY: Addendum, she has also had previous . SOCIAL HISTORY: She is a smoker trying to quit. She has had trouble with cocaine and opiates in the past, tested positive for these on previous drug screening as recently as last month. REVIEW OF SYSTEMS: GENERAL: She has been feeling poorly. She has been unsteady and occasionally confused. EYES: Her vision is reasonably good despite [place] of [place] [address] CONSULTATION Name: EMILIANA IGNACIO Room #: 208-P [facility] IN ..#: [id number] Admission: 07/29/18 ������������������ Attend Phys: Nehemiah Dempsey MD Discharge: ������������������ Date of : 66 Report #: [id number] ENT: Hearing okay, swallows okay. No mouth sores. ENDOCRINE: Positive for the diabetes. RESPIRATORY: States she is easily short winded despite a clear chest x-ray. CARDIAC: Frequent chest pains, but negative workups for ischemia in the past. GASTROINTESTINAL: Appetite is poor, but no nausea, vomiting or bloody stool. GENITOURINARY: Makes some urine, no dysuria. NEUROLOGIC: Confusion and unsteadiness. PHYSICAL EXAMINATION: GENERAL: Awake and alert, maybe a little bit diffuse on history, she did get recent IV morphine. SKIN: Unremarkable. SKELETAL: She is obese. HEENT: Extraocular movements are full. Vision is okay with corrective lenses. Hearing is okay. Mucous membranes are moist. Tongue, buccal mucosa benign. NECK: Supple, no carotid bruits. CHEST: Shows diminished breath sounds at the bases. HEART: Regular but distant. ABDOMEN: Soft and nontender. Left arm graft functioning nicely. No peripheral edema. LABORATORY DATA: Sodium 137, potassium 4.2, chloride 101, bicarbonate 28, BUN 32 and creatinine 5.6. ASSESSMENT AND PLAN: 1. End-stage renal disease, will need dialysis tomorrow. 2. History of drug abuse and dietary noncompliance. 3. Diabetes mellitus with triopathy. 4. Confusion and unsteadiness of unclear etiology. ��������������������������������������������� <ELECTRONICALLY SIGNED> ���������������������������������������� By: Jeremie Garcia MD ��������������������������������������������� 08/01/18 0922 1016 2234 Jeremie Garcia MD /nt
--- NOTE | 2018-08-01 11:16 | NUR ---
CHEST PAIN - PT STATES CP 10 LCHEST, NO SOA/NV/RADIATION. NO CHANGE WITH POSITIONS OR PALPATION, EKG ORDERED PT PLACED ON TEMP TELE AND WILL GIVE MORPHINE ORDERED. WILL MONITOR.
[2018-08-01 11:18] VITALS: BP 122/56
[2018-08-01] MEDS ORDERED: COZAAR100 MG PO (12:29)
[2018-08-01] MEDS ORDERED: LANTUS100 UNIT/M SUBQ (12:31)
--- NOTE | 2018-08-01 12:38 | NUR ---
Pt dcing home today. [facility] alerted for resumption of hh orders. DC principal planner to fax her dc summary to her dialysis clinic. No other needs noted.
[2018-08-01 13:22] VITALS: BP 159/83
[2018-08-01 14:31] VITALS: BP 159/83
== END 2018-08-01 14:30 | disposition home health service (06) | DRG 291 ==
LOC: ER 16:50 → 2N 18:42 → EROBS 18:42 → 2N 21:14
PROVIDERS: Nurse Practitioner Acute Care; Physician Assistant; ADMIT Internal Medicine
PROC: 5A1D70Z Performance of Urinary Filtration, Intermittent, Less than 6 Hours Per Day (ICD-10-PCS; principal; 2018-07-31)
DX: I13.2 Hypertensive heart and chronic kidney disease with heart failure and with stage 5 chronic kidney disease, or end stage renal disease (principal); N18.6 End stage renal disease; I50.32 Chronic diastolic (congestive) heart failure; E11.22 Type 2 diabetes mellitus with diabetic chronic kidney disease; E78.00 Pure hypercholesterolemia, unspecified; I25.10 Atherosclerotic heart disease of native coronary artery without angina pectoris; K21.9 Gastro-esophageal reflux disease without esophagitis; F14.90 Cocaine use, unspecified, uncomplicated; F17.210 Nicotine dependence, cigarettes, uncomplicated; E66.9 Obesity, unspecified; Z68.32 Body mass index [BMI] 32.0-32.9, adult; I25.2 Old myocardial infarction; Z98.891 History of uterine scar from previous surgery; Z87.828 Personal history of other (healed) physical injury and trauma; Z99.2 Dependence on renal dialysis; Z79.4 Long term (current) use of insulin; Z79.82 Long term (current) use of aspirin; Z79.899 Other long term (current) drug therapy; Z88.0 Allergy status to penicillin; Z88.1 Allergy status to other antibiotic agents; Z88.2 Allergy status to sulfonamides; Z83.3 Family history of diabetes mellitus; Z84.1 Family history of disorders of kidney and ureter; Z82.49 Family history of ischemic heart disease and other diseases of the circulatory system
CPT/HCPCS: 10081; 10194; 10797; 32100

== ENCOUNTER 2018-08-01 14:50 | Emergency (ER) | payer OTHER ==
[~2018-08-01] VITALS: Ht 175.3 cm; Wt 99.8 kg
[~2018-08-01 14:50] MED LIST changes: +ATORVASTATIN CA40 MG PO; +COZAAR100 MG PO; +ERGOCALCIF50000 UNIT PO; +GABAPENTIN 100100 MG PO; +NITROGLYCERIN0.4 MG SUBLING; +PHENERGAN 25 MG25 M1 PO; +PROTONIX40 M1 PO; +REMERON15 MG PO; +RENVELA800 MG PO; +ROBAXIN 750 MG750 M1 PO; +TRADJENTA5 MG; +TRAZODONE HCL50 MG PO; +ZOLOFT50 MG PO
[2018-08-01 15:25] LABS: ABSOLUTE NEUTROPHILS 2.2 thou/uL (1.4-8.2); BASOPHILS 1.2 % (0.0-2.0); EOSINOPHILS 3.5 % (0.0-3.0); HEMATOCRIT 32.6 % (37.0-47.0); HEMOGLOBIN 10.3 gm/dL (12.0-15.0); LYMPHOCYTES 33.8 % (24.0-44.0); MCH 25.8 pg (26.0-34.0); MCHC 31.5 g/dL (28.0-37.0); MONOCYTES 11.3 % (1.0-8.0); PLATELET COUNT 244 thou/uL (150-400); POLYS 50.2 % (36.0-66.0); RBC 3.98 mil/uL (4.20-5.00); WBC 4.3 thou/uL (4.0-11.0)
[2018-08-01 15:27] LABS: ANION GAP 9 mmol/L (7-16); BUN 41 mg/dL (7-18); CALCIUM 8.5 mg/dL (8.5-10.1); CHLORIDE 101 mmol/L (98-107); CO2 28 mmol/L (21-32); CREATININE 6.5 mg/dL (0.6-1.0); GLUCOSE 125 mg/dL (74-106); POTASSIUM 4.2 mmol/L (3.5-5.1); SODIUM 138 mmol/L (136-145)
[2018-08-01 15:36] LABS: TROPONIN-I <0.06 ng/mL (<0.06)
[2018-08-01 16:11] VITALS: BP 158/101
--- NOTE | 2018-08-03 21:54 | EKG ---
[place] [address] [facility] [place] [address] ELECTROCARDIOGRAM REPORT Name: EMILIANA IGNACIO [facility] [id number] Admission: 08/01/18 Attend Phys: Discharge: 08/01/18 Date of : 66 Report #: [id number] THIS REPORT FOR: //name// [facility] ED Test Date: 2018-08-01 Test Time: 15:10:51 Pat Name: EMILIANA IGNACIO Department: Room: Gender: F Certified Rehabilitation Counselor: : 1970 Requested By: Brent Benítez Order Number: [id number] MD: Nick Troy Measurements Intervals [place] Rate: 73 P: 24 [place]: 175 QRS: 3 QRSD: 101 T: 86 QT: 482 QTc: 532 Interpretive Statements Sinus rhythm Consider anterior infarct Prolonged QT interval Compared to ECG 07/29/2018 21:39:50 Myocardial infarct finding now present T-wave abnormality no longer present Poor R-wave progression no longer present Electronically Signed On 08-03-2018 21:54:09 TEAM LEADER SURGERY by Nick Troy [email or web address] <ELECTRONICALLY SIGNED> By: Nick Troy MD 08/03/18 2154 151 09 Nick Troy MD /ROXANA
== END 2018-08-01 16:43 | disposition home or self-care (01) ==
LOC: ER 14:50
PROVIDERS: Emergency Medicine
DX: R07.89 Other chest pain (principal); F17.210 Nicotine dependence, cigarettes, uncomplicated; I11.0 Hypertensive heart disease with heart failure; I50.9 Heart failure, unspecified; E11.9 Type 2 diabetes mellitus without complications; E78.5 Hyperlipidemia, unspecified; K21.9 Gastro-esophageal reflux disease without esophagitis; G89.29 Other chronic pain; M54.5 Low back pain; Z98.890 Other specified postprocedural states; Z86.2 Personal history of diseases of the blood and blood-forming organs and certain disorders involving the immune mechanism; Z88.0 Allergy status to penicillin; Z88.2 Allergy status to sulfonamides; Z88.8 Allergy status to other drugs, medicaments and biological substances; Z90.89 Acquired absence of other organs

== ENCOUNTER 2018-08-12 09:25 | Emergency (ER) | payer OTHER ==
[~2018-08-12] VITALS: Ht 177.8 cm; Wt 95.3 kg
[2018-08-12 10:44] LABS: HEMATOCRIT 29.7 % (37.0-47.0); HEMOGLOBIN 9.6 gm/dL (12.0-15.0); MCH 26.8 pg (26.0-34.0); MCHC 32.3 g/dL (28.0-37.0); MCV 82.9 fL (80.0-100.0); PLATELET COUNT 131 thou/uL (150-400); RBC 3.59 mil/uL (4.20-5.00); WBC 4.5 thou/uL (4.0-11.0)
[2018-08-12 10:53] LABS: ANION GAP 11 mmol/L (7-16); BUN 88 mg/dL (7-18); CALCIUM 7.9 mg/dL (8.5-10.1); CHLORIDE 107 mmol/L (98-107); CO2 22 mmol/L (21-32); CREATININE 8.3 mg/dL (0.6-1.0); GLUCOSE 170 mg/dL (74-106); POTASSIUM 5.3 mmol/L (3.5-5.1); SODIUM 140 mmol/L (136-145)
[2018-08-12 11:01] LABS: ALBUMIN 2.9 g/dL (3.4-5.0); MAGNESIUM 1.5 mg/dL (1.8-2.4); SGOT 21 U/L (15-37); SGPT 26 U/L (30-65); TOTAL BILIRUBIN 0.3 mg/dL (<0.1-1.0); TOTAL PROTEIN 6.3 g/dL (6.4-8.2); TROPONIN-I <0.06 ng/mL (<0.06)
[2018-08-12] MEDS ORDERED: HYDRALAZINE 5050 MG PO (11:19)
[2018-08-12] MEDS ORDERED: TRAZODONE HCL100 MG PO (11:21)
[2018-08-12 11:30] LABS: APTT 27.1 Seconds (24.5-32.8); PROTIME 10.7 Seconds (9.3-11.4)
[2018-08-12 11:47] LABS: ABSOLUTE NEUTROPHILS 3.1 thou/uL (1.4-8.2); PLATELET ESTIMATE NORMAL
[2018-08-12] MEDS ORDERED: ACETAMINOPHEN-1 EAC1 PO (12:51)
[2018-08-12 12:53] VITALS: BP 150/78
--- NOTE | 2018-08-12 16:49 | EKG ---
[facility] [place] [address] ELECTROCARDIOGRAM REPORT Name: EMILIANA IGNACIO [facility] [id number] ������������������ Admission: 08/12/18 ������������������ Attend Phys: Discharge: 08/12/18 ������������������ Date of : 66 Report #: [id number] ����������������������������������������������������������������� [id number] THIS REPORT FOR: //name// [facility] ED Test Date: 2018-08-12 Test Time: 09:40:34 Pat Name: EMILIANA IGNACIO Department: Room: Gender: F District Agent: BERTIN : 1970 Requested By: Tito Johnson Order Number: [id number] MD: Nick Troy Measurements Intervals [place] Rate: 76 P: 49 [place]: 175 QRS: 27 QRSD: 95 T: 90 QT: 461 QTc: 519 Interpretive Statements Sinus rhythm Probable left atrial enlargement Anteroseptal infarct, age indeterminate Lateral leads are also involved Compared to ECG 08/01/2018 15:10:51 No significant changes Electronically Signed On 08-12-2018 16:49:30 DECORATING MACHINE TENDER by Nick Troy [email or web address] ��������������������������������������������� <ELECTRONICALLY SIGNED> ���������������������������������������� By: Nick Troy MD ��������������������������������������������� 08/12/18 1649 Nick Troy MD /ROXANA
--- NOTE | 2018-08-12 16:59 | EKG ---
[place] [address] [facility] [place] [address] ELECTROCARDIOGRAM REPORT Name: EMILIANA IGNACIO [facility] [id number] ������������������ Admission: 08/12/18 ������������������ Attend Phys: Discharge: 08/12/18 ������������������ Date of : 66 Report #: [id number] ����������������������������������������������������������������� [id number] THIS REPORT FOR: //name// [facility] ED Test Date: 2018-08-12 Test Time: 12:48:51 Pat Name: EMILIANA IGNACIO Department: Room: Gender: F Key Attendant: ERNA : 1970 Requested By: Tito Johnson Order Number: [id number] MD: Nick Troy Measurements Intervals [place] Rate: 73 P: 26 [place]: 194 QRS: -11 QRSD: 96 T: 85 QT: 461 QTc: 508 Interpretive Statements Sinus rhythm Anterior infarct, old Compared to ECG 08/01/2018 15:10:51 Myocardial infarct finding still present Electronically Signed On 08-12-2018 16:59:30 ACTIVE DIRECTORY ENGINEER by Nick Troy [email or web address] ��������������������������������������������� <ELECTRONICALLY SIGNED> ���������������������������������������� By: Nick Troy MD ��������������������������������������������� 08/12/18 1659 D: [id number] Nick Troy MD /ROXANA
== END 2018-08-12 12:58 | disposition home or self-care (01) ==
LOC: ER 09:25
PROVIDERS: Emergency Medicine
DX: I13.2 Hypertensive heart and chronic kidney disease with heart failure and with stage 5 chronic kidney disease, or end stage renal disease (principal); E11.22 Type 2 diabetes mellitus with diabetic chronic kidney disease; N18.6 End stage renal disease; I50.9 Heart failure, unspecified; D64.9 Anemia, unspecified; E87.5 Hyperkalemia; I20.9 Angina pectoris, unspecified; E78.5 Hyperlipidemia, unspecified; K21.9 Gastro-esophageal reflux disease without esophagitis; G89.29 Other chronic pain; M54.5 Low back pain; F17.210 Nicotine dependence, cigarettes, uncomplicated; Z98.890 Other specified postprocedural states; Z88.0 Allergy status to penicillin; Z88.1 Allergy status to other antibiotic agents; Z99.2 Dependence on renal dialysis; Z79.4 Long term (current) use of insulin; Z88.2 Allergy status to sulfonamides

== ENCOUNTER 2018-08-18 15:04 | Emergency (ER) | payer OTHER ==
[~2018-08-18] VITALS: Ht 177.8 cm; Wt 99.8 kg
[~2018-08-18 15:04] MED LIST changes: +ACETAMINOPHEN-1 EAC1 PO
[2018-08-18 20:13] LABS: HEMATOCRIT 29.4 % (37.0-47.0); HEMOGLOBIN 9.7 gm/dL (12.0-15.0); MCH 26.7 pg (26.0-34.0); MCHC 32.9 g/dL (28.0-37.0); MCV 80.9 fL (80.0-100.0); PLATELET COUNT 192 thou/uL (150-400); RBC 3.63 mil/uL (4.20-5.00); RDW 17.3 % (10.5-14.5); WBC 6.3 thou/uL (4.0-11.0)
[2018-08-18 20:21] LABS: BE(vivo) 3.9 mmol/L (-2 to +3); HCO3 28.8 mmol/L (22.0-26.0); PCO2 44.9 mmHg (35.0-45.0); PO2 98.1 mmHg (80.0-100.0); pH 7.425 (7.360-7.450); sO2 97.5 % (92.0-98.0)
[2018-08-18 20:24] LABS: CALCIUM 8.3 mg/dL (8.5-10.1); CREATININE 8.2 mg/dL (0.6-1.0); POTASSIUM 4.7 mmol/L (3.5-5.1)
[2018-08-18 20:38] LABS: ABSOLUTE NEUTROPHILS 4.4 thou/uL (1.4-8.2)
[2018-08-18 20:39] LABS: ANISOCYTOSIS 1+; HYPOCHROMASIA 1+; POLYCHROMASIA OCCASIONAL
[2018-08-18] MEDS ORDERED: NORCO 5-325 TA1 EACH PO (21:34)
[2018-08-18] MEDS ORDERED: VENTOLIN HFA 1818 GM INH (21:34)
[2018-08-18 21:53] VITALS: BP 150/70
--- NOTE | 2018-08-19 07:47 | EKG ---
[facility] [place] [address] ELECTROCARDIOGRAM REPORT Name: EMILIANA IGNACIO [facility] [id number] ������������������ Admission: 08/18/18 ������������������ Attend Phys: Discharge: 08/18/18 ������������������ Date of : 66 Report #: [id number] ����������������������������������������������������������������� [id number] THIS REPORT FOR: //name// [facility] ED Test Date: 2018-08-18 Test Time: 15:17:47 Pat Name: EMILIANA IGNACIO Department: Room: Gender: F Paving Supervisor: LITO : 1970 Requested By: Minda Lopez Order Number: [id number] MD: Brandon Pederson Measurements Intervals [place] Rate: 77 P: 62 [place]: 182 QRS: 54 QRSD: 94 T: 79 QT: 438 QTc: 496 Interpretive Statements Sinus rhythm Anterior infarct, age indeterminate Borderline prolonged QT interval Compared to ECG 08/12/2018 12:48:51 No significant change was found Electronically Signed On 08-19-2018 7:46:56 TREE CHIPPER by Brandon Pederson [email or web address] ��������������������������������������������� <ELECTRONICALLY SIGNED> ���������������������������������������� By: Brandon Pederson MD, [facility] ��������������������������������������������� 08/19/18 0746 1516 16 Brandon Pederson MD, [facility] /EPI
== END 2018-08-18 21:56 | disposition home or self-care (01) ==
LOC: ER 15:04
PROVIDERS: Emergency Medicine
DX: R06.00 Dyspnea, unspecified (principal); R06.02 Shortness of breath; R07.89 Other chest pain; I12.0 Hypertensive chronic kidney disease with stage 5 chronic kidney disease or end stage renal disease; E11.22 Type 2 diabetes mellitus with diabetic chronic kidney disease; N18.6 End stage renal disease; Z99.2 Dependence on renal dialysis; I13.2 Hypertensive heart and chronic kidney disease with heart failure and with stage 5 chronic kidney disease, or end stage renal disease; I50.9 Heart failure, unspecified; E78.5 Hyperlipidemia, unspecified

== ENCOUNTER 2019-02-03 16:45 | Inpatient (IN) | payer OTHER ==
[~2019-02-03] VITALS: Ht 175.3 cm; Wt 106.0 kg
--- NOTE | ~2019-02-03 | EKG ---
[place] [address] [facility] [place] [address] ELECTROCARDIOGRAM REPORT Name: EMILIANA IGNACIO Room #: [facility].#: [id number] Admission: Attend Phys: Discharge: Date of : 66 Report #: [id number] THIS REPORT FOR: //name// [facility] ED Test Date: 2019-02-03 Test Time: 16:45:39 Pat Name: EMILIANA IGNACIO Department: Room: Gender: F Air Marshal: megan : 1970 Requested By: Gustavo Rodriguez Order Number: [id number] MD: Measurements Intervals [place] Rate: 75 P: 58 RI: 180 QRS: 82 QRSD: 97 T: 81 QT: 454 QTc: 508 Interpretive Statements Sinus rhythm Anterior infarct, old Prolonged QT interval Baseline wander in lead(s) V4 Compared to ECG 08/18/2018 15:17:47 No significant changes [email or web address] By: 44 44 Teri Williamson MD /EPI
[2019-02-03 16:45] VITALS: BP 123/68
[~2019-02-03 16:45] MED LIST changes: -ATORVASTATIN CA40 MG PO; +LIPITOR40 MG PO; -ROBAXIN 750 MG750 M1 PO; +ROBAXIN 750 MG750 MG PO; +VENTOLIN HFA 1818 GM INH
--- NOTE | 2019-02-03 16:50 | NUR ---
IV TEAM REQUESTED FOR PIV PLACEMENT
[2019-02-03 17:30] LABS: ABSOLUTE NEUTROPHILS 3.1 thou/uL (1.4-8.2); BASOPHILS 0.5 % (0.0-2.0); HEMATOCRIT 27.6 % (37.0-47.0); HEMOGLOBIN 9.6 gm/dL (12.0-15.0); LYMPHOCYTES 20.6 % (24.0-44.0); MCH 27.3 pg (26.0-34.0); MCHC 34.7 g/dL (28.0-37.0); MCV 78.7 fL (80.0-100.0); MONOCYTES 10.8 % (1.0-8.0); PLATELET COUNT 158 thou/uL (150-400); POLYS 65.1 % (36.0-66.0); RBC 3.51 mil/uL (4.20-5.00); RDW 16.3 % (10.5-14.5); WBC 4.8 thou/uL (4.0-11.0)
[2019-02-03 17:47] LABS: ANION GAP 7 mmol/L (7-16); BUN 24 mg/dL (7-18); CHLORIDE 98 mmol/L (98-107); CO2 31 mmol/L (21-32); CREATININE 4.3 mg/dL (0.6-1.0); GLUCOSE 310 mg/dL (74-106); POTASSIUM 3.7 mmol/L (3.5-5.1); SODIUM 136 mmol/L (136-145); TROPONIN-I <0.06 ng/mL (<0.06)
[2019-02-03 20:08] VITALS: BP 170/92
[2019-02-03 20:31] VITALS: BP 193/80
[2019-02-03 20:45] VITALS: BP 194/87
[2019-02-03] MEDS ORDERED: LANTUS100 UNIT/M SUBQ (22:58)
[2019-02-03] MEDS ORDERED: NEURONTIN600 MG PO (23:00)
[2019-02-03] MEDS ORDERED: HYDRALAZINE 5050 MG PO (23:02)
[2019-02-03] MEDS ORDERED: SERTRALINE HCL50 MG PO (23:04)
[2019-02-03 23:47] VITALS: BP 146/110
[2019-02-04] VITALS (7 sets, daily range): BP systolic 106–145; BP diastolic 47–68
[2019-02-04 02:24] LABS: HEMATOCRIT 29.3 % (37.0-47.0); HEMOGLOBIN 9.5 gm/dL (12.0-15.0); MCHC 32.5 % (28.0-37.0); MCV 79.8 fL (80.0-100.0); RBC 3.68 mil/uL (4.20-5.00); RDW 16.8 % (10.5-14.5); WBC 3.6 thou/uL (4.0-11.0)
[2019-02-04 02:27] LABS: ANION GAP 10 mmol/L (7-16); BUN 31 mg/dL (7-18); CALCIUM 8.6 mg/dL (8.5-10.1); CHLORIDE 101 mmol/L (98-107); CO2 28 mmol/L (21-32); CREATININE 5.3 mg/dL (0.6-1.0); GLUCOSE 175 mg/dL (74-106); POTASSIUM 4.1 mmol/L (3.5-5.1); SODIUM 139 mmol/L (136-145); TROPONIN-I <0.06 ng/mL (<0.06)
[2019-02-04 02:28] LABS: CHOLESTEROL 106 mg/dL (<200); HDL CHOLESTEROL 51 mg/dL (>40); LDL CHOLESTEROL 44 mg/dL (<100); SERUM ASSESSMENT Clear; TC:HDL 2.1 Ratio (Not establshd); TRIGLYCERIDE 58 mg/dL (<150); VLDL 12 mg/dL (<40)
--- NOTE | 2019-02-04 03:47 | NUR ---
ADMISSION FROM ED AROUND 2029. CP RADIATING TO LEFT ARM, PT REFUSING NITRO, PRN MORPHINE PER EMAR PARTIAL PAIN RELIEF. NAUSEA CONTROLLED WITH ZOLFRAN PER EMAR. ADMSSION AND MED RECONCIL COMPLETE. PT STATED HAD DIALYSIS, LEFT UPPER ARM FISTULA. NPO AT MIDNIGHT. CONSULTING CARDIO AND NEPHRO. WILL CONTINUE TO MONITOR AND WITH POC.
[2019-02-04 12:06] LABS: AMP/METHAMP Negative (Negative); BARBITURATES Negative (Negative); BENZODIAZEPINES Negative (Negative); COCAINE Negative (Negative); METHADONE Negative (Negative); OPIATES POSITIVE (Negative); PCP Negative (Negative)
--- NOTE | 2019-02-04 13:23 | EKG ---
[place] [address] [address] [facility] [place] [address] ELECTROCARDIOGRAM REPORT Name: EMILIANA IGNACIO Room #: 212- ADM IN M.R.#: [id number] Admission: 02/03/19 Attend Phys: Nehemiah Dempsey MD Discharge: Date of : 66 Report #: [id number] THIS REPORT FOR: //name// [facility] Test Date: 2019-02-04 Test Time: 07:20:26 Pat Name: EMILIANA IGNACIO Department: Room: 212 Gender: F Rn Recruitment: KIYA : 1970 Requested By: Africa Wiseman Order Number: [id number] MD: Brandon Pederson Measurements Intervals [place] Rate: 59 P: 25 [place]: 204 QRS: 11 QRSD: 104 T: 85 QT: 533 QTc: 529 Interpretive Statements Sinus rhythm Borderline prolonged [place] interval Poor R wave progression Prolonged QT interval Compared to ECG 08/18/2018 15:17:47 No significant change was found Electronically Signed On 02-04-2019 13:22:55 CDT by Brandon Pederson [email or web address] <ELECTRONICALLY SIGNED> By: Brandon Pederson MD, [facility] 02/04/19 1322 9 9 Brandon Pederson MD, [facility] /EPI
--- NOTE | 2019-02-04 14:21 | NUR ---
WENT IN TO DISCHARGE PT. PT STATES SHE HAS NO HYDROCODONE LEFT AT HOME AND WHERE IS HER RX FOR IT. INFORMED PT THAT THE PHYSICIAN DID NOT WRITE HER A PRESCRIPTION IT WAS ALREADY ON HER HOME MED LIST. PT STATES SHE WILL NOT LEAVE UNLESS WE GIVE HER A RX. INFORMED HER THAT I WOULD PAGE DR BARTLETT AND SEE IF HE WOULD WRITE HER A PRESCRIPTION. ASKED HER IF SHE COULD GET RX FROM HER PRIMARY, SHE SAID HER PRIMARY WILL NOT GIVE HER A RX FOR THAT AND IF SHE DOSEN'T GET A RX SHE IS GOING TO CALL MEDICARE AND CONTEST HER DISCHARGE. SHE SAYS SHE WILL NOT LEAVE WITHOUT A PAIN RX OR UNTIL HER PAIN IS BETTER, PER HER MAY BE TOMORROW, MAY BE THE NEXT DAY.
--- NOTE | 2019-02-04 18:29 | NUR ---
ASSUMED PT CARE AT [facility] 0700. PT A&O X4. ASSESSMENT CHARTED. FALL PRECAUTIONS IN PLACE. PT'S VITAL SIGNS ARE STABLE. PT'S BLOOD SUGARS ARE STABLE. PT HAS HAD 6-7/10 CHEST PAIN. PT RECIEVES ANALGESICS FOR CHEST PAIN. PT STATES CHEST PAIN DECREASES AFTER ANALGESICS. PT'S TROPONIN AND EKG BOTH NEGATIVE. DR. BARTLETT AWARE OF PAIN LEVEL. PT ALSO STATED NAUSEA AND PURITUS. MEDICATIONS GIVEN FOR BOTH. PT STATES NAUSEA AND PURITIS DECREASE AFTER MEDICATIONS. PT AMBULATES STEADY WITH CANE. PT HAD DISCHARGE ORDERS TO GO HOME. PT STATED SHE DID NOT WANT TO BE DISCHARGED UNLESS SHE RECIEVED A RX FOR PAIN MEDICATIONS TO GO HOME. PT APPEALED THROUGH MEDICARE TO CONTINUE TO STAY ON UNIT. AWAITING THE NEXT STEPS FOR HER POC. PT IS NOW ON A RENAL DIET. PT HAS DIALYSIS LAUREN,ROQUE,SAT. CONTINUING TO MONITOR PT.
[2019-02-05] VITALS (7 sets, daily range): BP systolic 106–160; BP diastolic 47–61
[2019-02-05 00:09] LABS: GLYCOHEMOGLOBIN (HGB A1C) 6.7 % (4.8-5.6)
--- NOTE | 2019-02-05 06:25 | NUR ---
PT A&O X4 ABLE TO MAKE BASIC NEEDS KNOWN. OCC C/O CP, NECK SOMETIMES L SHOULDER PAIN EFFECTIVELY CONTROLLED VIA PRN PAIN MEDS. CALM AND COOPERATIVE. SBA. DIALYSIS PT L AV GRAFT. ACHS.
--- NOTE | 2019-02-05 11:04 | HC ---
[facility] [place] [address] CONSULTATION Name: EMILIANA IGNACIO Room #: 212-P [facility] IN M.R.#: [id number] Admission: 02/03/19 Attend Phys: Nehemiah Dempsey MD Discharge: Date of : 66 Report #: [id number] THIS REPORT FOR: //name// CC: Nehemiah Sykes [facility] DATE OF SERVICE: 02/04/2019 NEPHROLOGY CONSULTATION. ATTENDING PHYSICIAN: Dr. Dempsey REASON FOR CONSULTATION: End-stage renal disease. HISTORY OF PRESENT ILLNESS: The patient is known to our service from several previous admissions at this hospital. She has end-stage renal disease, dialyzed at the [facility]. She last dialyzed yesterday. She had some chest pain, came to the Emergency Room, received some morphine, was admitted, received some more morphine and she was seen in her hospital bed this morning. Seems reasonably comfortable. She says she is still having some sharp chest pain. She currently is not short of air. PAST MEDICAL HISTORY: End-stage renal disease, difficult hypertension, longstanding diabetes, left arm AV graft; apparently has had previous heart catheterization and nuclear stress test negative for cardiac ischemia. HOME MEDICATIONS: As listed include aspirin 325 mg daily, Lipitor 40 mg daily, carvedilol 25 mg b.i.d., trazodone 200 mg at bedtime, Cardura 2 mg b.i.d., Cymbalta 20 mg b.i.d., Neurontin 600 mg t.i.d., insulin, Imdur 60 mg daily, losartan 100 mg daily, Robaxin 750 mg q. 8 p.r.n., Remeron 15 mg at bedtime, Norvasc 10 mg daily, pantoprazole 40 mg daily, Zoloft 100 mg daily, sevelamer 800 mg with meals t.i.d. FAMILY HISTORY: Strongly positive for diabetes and renal disease. SOCIAL HISTORY: She has a history of cocaine and other illicit drug usage. No cigarettes. REVIEW OF SYSTEMS: GENERAL: She is feeling reasonably well. EYES: Says her vision is okay. ENT: Swallows okay. ENDOCRINE: Positive for the diabetes. RESPIRATORY: Not short of air at rest currently. No pleuritic pain. CARDIAC: She has had the atypical chest pain as mentioned. GASTROINTESTINAL: Little bit nauseated. [facility] [address] [place] [address] CONSULTATION Name: EMILIANA IGNACIO Room #: 212-P [facility]#: [id number] Admission: 02/03/19 Attend Phys: Nehemiah Dempsey MD Discharge: Date of : 66 Report #: [id number] GENITOURINARY: No dysuria. MUSCULOSKELETAL: Generalized aches and pains. PHYSICAL EXAMINATION: GENERAL: This is an overweight, but lucid patient appearing in no distress. SKIN: Unremarkable. SKELETAL: Rather overweight. HEENT: Extraocular movements are full. Vision intact. No scleral icterus. Mucous membranes are moist. NECK: Supple. CHEST: Clear to auscultation. HEART: Regular. ABDOMEN: Soft and nontender. EXTREMITIES: Show no peripheral edema. Left arm AV graft appears to be functional with good thrill and bruit. LABORATORY DATA: Hemoglobin is 9.5, platelets are 159. Sodium 139, potassium 4.1, chloride 101, bicarbonate 28, BUN 31, creatinine 5.3. ASSESSMENT AND PLAN: 1. End-stage renal disease. She dialyzed yesterday. Her numbers look okay. Her volume status looks okay. We will hold off on dialysis until tomorrow as indicated keeping her on her regular schedule. 2. Atypical chest pain. There may be an element of drug seeking behavior, particularly for IV narcotics. 3. History of cocaine binging. 4. Diabetes mellitus with end-stage renal disease. 5. History of hypertension. 6. Polypharmacy. <ELECTRONICALLY SIGNED> By: Jeremie Garcia MD 02/05/19 1104 0904 2203 Jeremie Garcia MD /nt
--- NOTE | 2019-02-05 16:33 | NUR ---
Chart reviewed and case discussed with the care team. Pt was dc'd to home yesterday with outpt f/u and resumption of her outpt dialysis. No cm interventions indicated. She is appealing her discharge as she did not want to go home without a script for pain medication. She is up ad sridhar in her room with her cane. She goes to outpt dialysis at [facility]. She had dialysis this am. She lives with her niece. She has a history of substance abuse. She has had hh in the past but does not anticipate being homebound [place]. CM role reintroduced. Pt may need a cab ride [place].
--- NOTE | 2019-02-05 16:42 | NUR ---
PT CARE ASSUMED [facility] 0[facility]. PT ALERT AND ORIENTED X4. DENIES SOA. VSS. REPORTS PAIN IN CHEST AND LEFT ARM 11/24. CARDIOLOGY HAS RULED THIS PAIN OUT CARDIAC. PT'S PAIN MANAGED WITH PRN MEDS. REPORTS ADEQUATE PAIN MANAGEMENT. BS ELEVATED. MANAGING HYPERGLYCEMIA WITH SSI. PT HAD HEMODIALYSIS THIS SHIFT. TOLERATED WELL. VSS POST HD. MEDS CAUGHT UP THAT WERE HELD DURING HD. PT JUST ATE AND RECEIVED SSI AND PHOSPHATE BINDER. NURSE WILL HOLD THESE MEDS UNTIL PT IS READY FOR DINNER. PT AWARE TO SIMPLY NOTIFY NURSING WHEN READY TO EAT AND RECEIVED MEAL TIME MEDS. PT UP WITH CANE AND SBA. STEADY GAIT. PT STILL AWAITING APPEAL REVIEW FOR DISCHARGE. PT AWARE OF POTENTIAL OUTCOMES AND DISCHARGE PLAN ONCE REVIEW IS REPORTED BACK TO US. PT AGREEABLE. NO DISTRESS NOTED.
[2019-02-06 04:34] VITALS: BP 162/67
--- NOTE | 2019-02-06 05:44 | NUR ---
PT A&O X4 ABLE TO MAKE BASIC NEEDS KNOWN. PAIN HAD OCC C/O LEFT SHOULDER PAIN OVERNITE EFFECTIVELY CONTROLLED VIA PRN PAIN MEDS. NO C/O CP OVERNITE. PT ALSO REQUESTS ZOFRAN C/O NAUSEA ALSO BENEDRYL Q4H. ACHS. SBA WITH CANE TRANSFERS. Q2H TURN AND REPOSITION.
[2019-02-06 06:31] VITALS: BP 128/66
[2019-02-06 08:00] VITALS: BP 140/60
--- NOTE | 2019-02-06 12:07 | NUR ---
Pt has spoken with the attending this am and agreeable to dc home today. She will need a cab ride. DC communications planner to fax update to her dialysis clinic and she will resume her normal schedule tomorrow. No other needs indicated. No response back yet from her appeal.
[2019-02-06 12:15] VITALS: BP 118/57
--- NOTE | 2019-02-06 12:46 | HC ---
[facility] [address] CONSULTATION Name: EMILIANA IGNACIO Room #: 212-P [facility] IN .R.#: [id number] Admission: 02/03/19 Attend Phys: Nehemiah Dempsey MD Discharge: Date of : 66 Report #: [id number] THIS REPORT FOR: //name// [facility] HISTORY OF PRESENT ILLNESS: The patient is a 48-year-old -Australian woman with end-stage renal disease, on hemodialysis. Her history includes hypertension, dyslipidemia and diabetes. She now presents with left upper chest and shoulder pain. This occurred yesterday morning and then recurred during dialysis. An ambulance was summoned and she was brought to the Emergency Department. Her pain has been persistent. Nitroglycerin and Morphine helped the pain, although she thought initially that this was musculoskeletal discomfort. There was a positional and pleuritic component to the discomfort. No fevers, chills or night sweats. Combination of pain medicines and nitroglycerin did not immediately relieve the discomfort. Her prior evaluation by Dr. Beavers has been thorough and extensive including an echocardiogram in June of this year when she presented with chest pain and cocaine intoxication. Her ejection fraction was normal. A nuclear stress study demonstrated no evidence of ischemia. Medical therapy was recommended. This pain is similar to what she has had previously during that June hospitalization. MEDICATIONS: Her medicines include albuterol, losartan, insulin, Imdur 60 mg daily, metolazone, gabapentin 100 mg 3 times a day, Tradjenta, atorvastatin 40 mg daily, sertraline, hydralazine 100 mg twice daily, trazodone, carvedilol 25 mg twice daily, amlodipine 10 mg daily and aspirin. ALLERGIES: SHE IS ALLERGIC TO PENICILLIN, BACTRIM. SOCIAL HISTORY: She is a cigarette smoker. FAMILY HISTORY: Unremarkable for premature coronary artery disease. REVIEW OF SYSTEMS: All systems negative except as that noted above. PHYSICAL EXAMINATION: GENERAL: A pleasant woman who is in no distress. VITAL SIGNS: Blood pressure is 120/59, heart rate is 60 and regular. She is afebrile, 5 feet 9 inches tall, 237 pounds. HEENT: There are neither xanthelasma, subcutaneous xanthomata, oral mucosa or digital cyanosis or kyphoscoliosis present. CHEST: Clear to auscultation and percussion. CARDIAC: Regular rate and rhythm with normal S1, S2. No murmurs or rubs. ABDOMEN: Soft and nontender. EXTREMITIES: Without cyanosis or edema. Radial pulses are 2+. NEUROLOGICAL: She is alert with a nonfocal exam. [address] [address] CONSULTATION Name: EMILIANA IGNACIO Room #: 212-P [facility] IN M.R.#: [id number] Admission: 02/03/19 Attend Phys: Nehemiah Dempsey MD Discharge: Date of : 66 Report #: [id number] LABORATORY DATA: EKG sinus rhythm, no acute ST or T-wave changes. Sodium 139, potassium 4.1, creatinine 5.3. Serial troponin levels are 0. White count 3.6, hemoglobin 9.5, hematocrit 29. IMPRESSION: 1. Chest and shoulder pain, atypical for angina. 2. Recent normal echo and pharmacologic stress study. 3. End-stage renal disease, on hemodialysis. 4. Diabetes. 5. Hypertension. RECOMMENDATIONS: Serial cardiac enzymes and troponins have been normal. Her chest pain is atypical for angina and she has had a recent, extensive evaluation. I do not believe this is angina or an ischemic symptom. No further testing is needed from a cardiovascular standpoint. She was reassured. I will be available for questions or issues. Thank you for asking me to participate in her care. <ELECTRONICALLY SIGNED> By: Brandon Pederson MD, FACC 02/06/19 1246 0749 2134 Brandon Pederson MD, FACC /nt
--- NOTE | 2019-02-06 12:51 | NUR ---
PT ALERT AND ORIENTED X4. COMPLAINING OF LEFT SHOULDER PAIN. GIVEN PRN HYDROCODONE FOR PAIN AND REPORTS GOOD RELIEF OF PAIN. PT AMBULATING IN ROOM WITH STEADY GAIT. DISCHARGE INSTRUCTIONS RECIEVED. DISCUSSED DISCHARGE INSTRUCTIONS WITH PATIENT AND SHE VERBALIZED UNDERSTANDING. TO LEAVE BY CAB.
--- NOTE | 2019-02-06 14:52 | NUR ---
Pt dc'd home via cab prior to call back from Brenda (medicare reviewer for pt's appeal). They have called back and indicated that they are upholding the discharge and pt's lcd is 02/06/19. They have attempted to reach the pt to advise her of their decision but have not been able to talk with her. Brenda advised that the pt has already dc'd to home.
== END 2019-02-06 12:44 | disposition home or self-care (01) | DRG 205 ==
LOC: ER 16:45 → 2N 19:47 → EROBS 19:47 → 2N 20:28
PROVIDERS: Emergency Medicine; Internal Medicine; Nurse Practitioner Family; ADMIT Internal Medicine
PROC: 5A1D70Z Performance of Urinary Filtration, Intermittent, Less than 6 Hours Per Day (ICD-10-PCS; principal; 2019-02-05)
DX: M94.0 Chondrocostal junction syndrome [Tietze] (principal); N18.6 End stage renal disease; I50.32 Chronic diastolic (congestive) heart failure; I13.2 Hypertensive heart and chronic kidney disease with heart failure and with stage 5 chronic kidney disease, or end stage renal disease; E78.5 Hyperlipidemia, unspecified; K21.9 Gastro-esophageal reflux disease without esophagitis; G89.29 Other chronic pain; M54.5 Low back pain; F17.210 Nicotine dependence, cigarettes, uncomplicated; E11.22 Type 2 diabetes mellitus with diabetic chronic kidney disease; F41.9 Anxiety disorder, unspecified; D64.9 Anemia, unspecified; E11.42 Type 2 diabetes mellitus with diabetic polyneuropathy; F32.9 Major depressive disorder, single episode, unspecified; E66.01 Morbid (severe) obesity due to excess calories; Z83.6 Family history of other diseases of the respiratory system; Z68.34 Body mass index [BMI] 34.0-34.9, adult; Z88.0 Allergy status to penicillin; Z88.2 Allergy status to sulfonamides; Z88.8 Allergy status to other drugs, medicaments and biological substances; Z82.49 Family history of ischemic heart disease and other diseases of the circulatory system; Z83.3 Family history of diabetes mellitus; Z71.6 Tobacco abuse counseling; Z79.899 Other long term (current) drug therapy
CPT/HCPCS: 10081; 32100

== ENCOUNTER 2019-04-04 16:55 | Emergency (ER) | payer OTHER ==
[~2019-04-04] VITALS: Ht 177.8 cm; Wt 99.8 kg
[~2019-04-04 16:55] MED LIST changes: +SERTRALINE HCL50 MG PO
[2019-04-04 21:34] LABS: HEMOGLOBIN 9.9 gm/dL (12.0-15.0); MCH 27.2 pg (26.0-34.0); MCHC 33.1 g/dL (28.0-37.0); MCV 82.1 fL (80.0-100.0); PLATELET COUNT 193 thou/uL (150-400); RBC 3.65 mil/uL (4.20-5.00); WBC 3.8 thou/uL (4.0-11.0)
[2019-04-04 21:48] LABS: ANION GAP 4 mmol/L (7-16); BUN 19 mg/dL (7-18); CHLORIDE 102 mmol/L (98-107); CO2 33 mmol/L (21-32); CREATININE 5.3 mg/dL (0.6-1.0); GLUCOSE 157 mg/dL (74-106); POTASSIUM 4.3 mmol/L (3.5-5.1); SODIUM 139 mmol/L (136-145); TROPONIN-I <0.06 ng/mL (<0.06)
[2019-04-04 21:58] LABS: ABSOLUTE NEUTROPHILS 2.6 thou/uL (1.4-8.2); ANISOCYTOSIS 1+
[2019-04-04] MEDS ORDERED: NORCO 5-325 TA1 EAC1 PO (22:41)
[2019-04-05 00:08] VITALS: BP 158/71
--- NOTE | 2019-04-06 09:08 | EKG ---
[facility] [place] [address] ELECTROCARDIOGRAM REPORT Name: EMILIANA IGNACIO [id number] Admission: 04/04/19 Attend Phys: Discharge: 04/05/19 Date of : 66 Report #: [id number] THIS REPORT FOR: //name// [facility] ED Test Date: 2019-04-04 Test Time: 17:01:05 Pat Name: EMILIANA IGNACIO Department: Room: Gender: F Iphone Developer: ROSI : 1970 Requested By: Brent Benítez Order Number: [id number] MD: Brandon Pederson Measurements Intervals [place] Rate: 90 P: 42 DC: 182 QRS: 23 QRSD: 102 T: 95 QT: 417 QTc: 511 Interpretive Statements Sinus rhythm Poor R wave progression Prolonged QT interval Baseline wander in lead(s) V6 Compared to ECG 02/04/2019 07:20:26 no significant change was found Electronically Signed On 04-06-2019 9:08:38 CDT by Brandon Pederson [email or web address] <ELECTRONICALLY SIGNED> By: Brandon Pederson MD, [facility] 04/06/19 0908 00 00 Brandon Pederson MD, FACC /EPI
== END 2019-04-05 00:09 | disposition home or self-care (01) ==
LOC: ER 16:55
PROVIDERS: Emergency Medicine
DX: R07.89 Other chest pain (principal); F32.9 Major depressive disorder, single episode, unspecified; F41.9 Anxiety disorder, unspecified; I13.2 Hypertensive heart and chronic kidney disease with heart failure and with stage 5 chronic kidney disease, or end stage renal disease; I50.9 Heart failure, unspecified; N18.6 End stage renal disease; E11.22 Type 2 diabetes mellitus with diabetic chronic kidney disease; K21.9 Gastro-esophageal reflux disease without esophagitis; E78.5 Hyperlipidemia, unspecified; G89.29 Other chronic pain; M54.5 Low back pain; F17.210 Nicotine dependence, cigarettes, uncomplicated; Z90.89 Acquired absence of other organs; Z86.2 Personal history of diseases of the blood and blood-forming organs and certain disorders involving the immune mechanism; Z79.4 Long term (current) use of insulin; Z88.2 Allergy status to sulfonamides; Z88.0 Allergy status to penicillin; Z88.8 Allergy status to other drugs, medicaments and biological substances

== ENCOUNTER 2020-02-28 07:20 | Emergency (ER) | payer OTHER ==
[~2020-02-28] VITALS: Ht 175.3 cm; Wt 102.1 kg
[~2020-02-28 07:20] MED LIST changes: +NORCO 5-325 TA1 EAC1 PO
[2020-02-28 08:21] LABS: HEMATOCRIT 28.3 % (37.0-47.0); HEMOGLOBIN 9.5 gm/dL (12.0-15.0); MCH 29.4 pg (26.0-34.0); MCHC 33.4 g/dL (28.0-37.0); MCV 88.1 fL (80.0-100.0); PLATELET COUNT 248 thou/uL (150-400); RBC 3.22 mil/uL (4.20-5.00); RDW 17.5 % (10.5-14.5)
[2020-02-28 08:37] LABS: ANION GAP 20 mmol/L (7-16); BUN 60 mg/dL (7-18); CHLORIDE 101 mmol/L (98-107); CO2 17 mmol/L (21-32); CREATININE 13.4 mg/dL (0.6-1.0); GLUCOSE 109 mg/dL (74-106); POTASSIUM 4.3 mmol/L (3.5-5.1); SODIUM 138 mmol/L (136-145)
[2020-02-28 08:44] LABS: ALBUMIN 3.8 g/dL (3.4-5.0); DIRECT BILIRUBIN 0.2 mg/dL (<0.1-0.2); SGOT 10 U/L (15-37); SGPT 17 U/L (30-65); TOTAL BILIRUBIN 0.5 mg/dL (0.2-1.0); TOTAL PROTEIN 7.7 g/dL (6.4-8.2); TROPONIN-I <0.06 ng/mL (<0.06)
[2020-02-28 09:51] LABS: ABSOLUTE NEUTROPHILS 3.1 thou/uL (1.4-8.2)
[2020-02-28 09:52] LABS: ANISOCYTOSIS 1+
[2020-02-28 10:08] VITALS: BP 183/93
--- NOTE | 2020-02-29 08:10 | EKG ---
[facility] [address] ELECTROCARDIOGRAM REPORT Name: EMILIANA IGNACIO [id number] Admission: 02/28/20 Attend Phys: Discharge: 02/28/20 Date of : 66 Report #: [id number] THIS REPORT FOR: cc: Mony Harman MD, Karla L. MD Couchonnal, Luis F. MD ~ THIS REPORT FOR: //name// [facility] ED Test Date: 2020-02-28 Test Time: 07:41:20 Pat Name: EMILIANA IGNAICO Department: Room: Gender: F Etl Analyst Developer: esheets : 1970 Requested By: Minda Lopez Order Number: [id number] MD: Nick Troy Measurements Intervals [place] Rate: 100 P: 48 SD: 167 QRS: 6 QRSD: 94 T: 93 QT: 396 QTc: 511 Interpretive Statements Sinus tachycardia Anterior infarct, old Prolonged QT interval Compared to ECG 04/04/2019 17:01:05 Myocardial infarct finding now present Sinus rhythm no longer present Poor R-wave progression no longer present Electronically Signed On 02-29-2020 8:09:57 CDT by Nick Troy [email or web address] <ELECTRONICALLY SIGNED> By: Nick Troy MD 02/29/20808 0 0 Nick Troy MD /EPI
== END 2020-02-28 10:08 | disposition home or self-care (01) ==
LOC: ER 07:20
PROVIDERS: Emergency Medicine
DX: R07.9 Chest pain, unspecified (principal); R06.00 Dyspnea, unspecified; I13.2 Hypertensive heart and chronic kidney disease with heart failure and with stage 5 chronic kidney disease, or end stage renal disease; E11.22 Type 2 diabetes mellitus with diabetic chronic kidney disease; N18.6 End stage renal disease; I50.9 Heart failure, unspecified; K21.9 Gastro-esophageal reflux disease without esophagitis; E78.5 Hyperlipidemia, unspecified; G89.29 Other chronic pain; M54.5 Low back pain; F17.210 Nicotine dependence, cigarettes, uncomplicated; Z79.82 Long term (current) use of aspirin; Z79.899 Other long term (current) drug therapy; Z90.89 Acquired absence of other organs; Z88.0 Allergy status to penicillin; Z79.4 Long term (current) use of insulin; Z88.2 Allergy status to sulfonamides; Z88.8 Allergy status to other drugs, medicaments and biological substances

== ENCOUNTER 2020-03-12 18:57 | Emergency (ER) | payer OTHER ==
[~2020-03-12] VITALS: Ht 175.3 cm; Wt 99.8 kg
[2020-03-12 20:31] LABS: ANION GAP 15 mmol/L (7-16); BUN 37 mg/dL (7-18); CALCIUM 8.4 mg/dL (8.5-10.1); CHLORIDE 104 mmol/L (98-107); CO2 21 mmol/L (21-32); CREATININE 7.3 mg/dL (0.6-1.0); GLUCOSE 47 mg/dL (74-106); POTASSIUM 4.4 mmol/L (3.5-5.1); SODIUM 140 mmol/L (136-145)
[2020-03-12 20:42] LABS: LIPASE 85 U/L (73-393); MAGNESIUM 1.8 mg/dL (1.8-2.4); SGOT 27 U/L (15-37); SGPT 19 U/L (30-65); TOTAL BILIRUBIN 0.7 mg/dL (0.2-1.0); TOTAL PROTEIN 6.4 g/dL (6.4-8.2); TROPONIN-I <0.06 ng/mL (<0.06)
[2020-03-12 20:48] LABS: ABSOLUTE NEUTROPHILS 3.1 thou/uL (1.4-8.2); BASOPHILS 0.8 % (0.0-2.0); EOSINOPHILS 2.7 % (0.0-3.0); HEMATOCRIT 24.2 % (37.0-47.0); LYMPHOCYTES 30.6 % (24.0-44.0); MONOCYTES 11.7 % (1.0-8.0); PLATELET COUNT 172 thou/uL (150-400); POLYS 54.2 % (36.0-66.0); RBC 2.75 mil/uL (4.20-5.00); WBC 5.8 thou/uL (4.0-11.0)
[2020-03-12 21:13] LABS: ALBUMIN 3.3 g/dL (3.4-5.0)
[2020-03-12 23:32] LABS: URINE BILIRUBIN NEGATIVE (Negative); URINE BLOOD NEGATIVE (Negative); URINE CLARITY CLEAR; URINE COLOR YELLOW; URINE GLUCOSE-RANDOM* 1+ (Negative); URINE KETONES NEGATIVE (Negative); URINE LEUKOCYTES-REFLEX NEGATIVE (Negative); URINE NITRITE-REFLEX NEGATIVE (Negative); URINE PROTEIN (DIPSTICK) 2+ (Negative); URINE SPECIFIC GRAVITY 1.015 (1.005-1.035); URINE UROBILINOGEN 0.2 E.U./dl (0.2-1.0)
[2020-03-12 23:39] LABS: AMP/METHAMP Negative (Negative); BARBITURATES Negative (Negative); BENZODIAZEPINES Negative (Negative); COCAINE POSITIVE (Negative); METHADONE Negative (Negative); OPIATES Negative (Negative); PCP Negative (Negative)
[2020-03-12 23:52] LABS: BACTERIA-REFLEX None Seen /HPF (None Seen); CASTS None Seen /LPF (None Seen); CRYSTALS None Seen /LPF (None Seen); MUCUS None Seen strn/LPF (None Seen); SQUAMOUS None Seen /LPF (0-3); URINE RBC None Seen /HPF (0-2); URINE WBC-REFLEX None Seen /HPF (0-5)
[2020-03-13] MEDS ORDERED: TIZANIDINE4 MG/1 TA1 PO (12:26)
[2020-03-13] MEDS ORDERED: VISTARIL 25 MG25 M1 PO (12:26)
[2020-03-13 16:17] VITALS: BP 161/78
--- NOTE | 2020-03-14 08:12 | EKG ---
[facility] [place] [address] ELECTROCARDIOGRAM REPORT Name: EMILIANA IGNACIO Room #: [facility]#: [id number] Admission: 03/12/20 Attend Phys: Discharge: 03/13/20 Date of : 66 Report #: [id number] THIS REPORT FOR: cc: Mony Harman MD, Karla L. MD Santiago, Patrick MD [facility] ~ THIS REPORT FOR: //name// [facility] ED Test Date: 2020-03-12 Test Time: 19:14:50 Pat Name: EMILIANA IGNACIO Department: Room: Gender: F Loss Prevention Investigator: JESSY CHAIREZ : 1970 Requested By: Tito Johnson Order Number: [id number] MD: Bennett Hewitt Measurements Intervals [place] Rate: 70 P: 56 CA: 216 QRS: 12 QRSD: 99 T: 86 QT: 446 QTc: 482 Interpretive Statements Sinus rhythm Prolonged CA interval Compared to ECG 02/28/2020 07:41:20 First degree AV block now present Sinus tachycardia no longer present Prolonged QT interval no longer present Electronically Signed On 03-14-2020 8:12:46 CDT by Bennett Hewitt [email or web address] <ELECTRONICALLY SIGNED> By: Bennett Hewitt MD, [facility] 03/14/20811 13 13 Bennett Hewitt MD, [facility] /EPI
== END 2020-03-13 16:24 | disposition home or self-care (01) ==
LOC: ER 18:57
PROVIDERS: Emergency Medicine
DX: I13.2 Hypertensive heart and chronic kidney disease with heart failure and with stage 5 chronic kidney disease, or end stage renal disease (principal); E11.22 Type 2 diabetes mellitus with diabetic chronic kidney disease; E11.649 Type 2 diabetes mellitus with hypoglycemia without coma; N18.6 End stage renal disease; I50.9 Heart failure, unspecified; Z99.2 Dependence on renal dialysis; I25.10 Atherosclerotic heart disease of native coronary artery without angina pectoris; G89.29 Other chronic pain; M54.5 Low back pain; D64.9 Anemia, unspecified; R45.851 Suicidal ideations; F12.10 Cannabis abuse, uncomplicated; K59.00 Constipation, unspecified; E78.5 Hyperlipidemia, unspecified; F17.210 Nicotine dependence, cigarettes, uncomplicated; K21.9 Gastro-esophageal reflux disease without esophagitis; Z90.89 Acquired absence of other organs; Z79.899 Other long term (current) drug therapy; Z79.4 Long term (current) use of insulin; Z88.0 Allergy status to penicillin; Z88.2 Allergy status to sulfonamides; Z88.8 Allergy status to other drugs, medicaments and biological substances

== ENCOUNTER 2020-06-12 11:24 | Inpatient (IN) | payer OTHER ==
[~2020-06-12] VITALS: Ht 177.8 cm; Wt 106.6 kg
--- NOTE | ~2020-06-12 | EMS ---
[address] [address] EMS Patient Care Report Name: EMILIANA IGNACIO Room #: [facility]#: [id number] Admission: 06/12/20 Attend Phys: Discharge: Date of : 66 Report #: [id number] THIS REPORT FOR: //name// Report Transmitted: 06/12/2020 12:13 EMS Care Summary [place], [place]/[facility] Incident [id number] @ 06/12/2020 10:45 Incident Location [address] [place], [place] [id number] Patient EMILIANA IGNACIO Female, 49 Years 1970 Patient Address [address] [place] [address] Patient History Angina,Congestive Heart Failure (CHF),Chronic Obstructive Pulmonary Disease (COPD),Diabetes,Hypertension (HTN),Pneumonia,Depression,Anxiety,Anaphylaxis,Dialysis, Patient Allergies Penicillin allergy,Bactrim, Patient Medications Aspirin, Insulin, Norvasc, Nitroglycerin, Doxazosin, Hydroxyzine, Carvedilol, Chief Complaint SHORTNESS OF BREATH Disposition Transported No Lights/[place] Dispatch Reason Breathing Problem Transported To [address] [address] EMS Patient Care Report Name: EMILIANA IGNACIO Room #: [facility]#: [id number] Admission: 06/12/20 Attend Phys: Discharge: Date of : 66 Report #: [id number] M36 DISPATCHED ON A BREATHING DIFFICULTY. M36 ARRIVED TO FIND PT INSIDE OF THIRD FLOOR APARTMENT. PT SEATED IN BED WITH INCREASED WORK OF BREATHING. PT STATED SHORTNESS OF BREATH CHIEF COMPLAINT. PT STATED HISTORY OF PNEUMONIA TWO WEEKS AGO. PT STATED SHE "FINISHED THOSE MEDS SATURDAY." PT STATED WALKING MADE BREATHING WORSE. PT STATED SHORTNESS OF BREATH STARTED OVERNIGHT. PT STATED SHE USED HER ALBUTEROL INHALER "ABOUT 6 TIMES THIS MORNING." PT STATED NOTHING HELPED HER SHORTNESS OF BREATH. PT DENIED SMOKING CIGGARETTES. PT LUGGAGE BAG CONTAINED EMPTY CIGGARETTE PACKAGING. PT ASSISTED TO STAND AND PIVOT TO STAIRCHAIR BY EMS. PT SECURED WITH SEATBELTS. PT MOVED TO AMBULANCE BY EMS AND FIRE PERSONNEL. PT STOOD AND PIVOTED TO STRETCHER. PT SECURED WITH SEATBELTS. PT VS MONITORED EN ROUTE. PT REPORT GIVEN. PT MOVED SELF OVER TO HOSPITAL BED. PT CARE AND BELONGINGS TRANSFERRED TO ER STAFF AT [facility] WITHOUT ASSISTANCE. M36 PLACED BACK IN SERVICE. Initial Vitals @11:13P: 82,R: 18,BP: 166/92,Pain: 6/10,GCS: 15,CO: 9,SpO2: 99,Revised Trauma: 12, @11:05P: 88,R: 20,Pain: 6/10,GCS: 15,CO: 2,SpO2: 99,Revised Trauma: 12, @11:07P: 86,R: 18,BP: 196/82,Pain: 6/10,GCS: 15,CO: 5,SpO2: 100,Revised Trauma: 12,WA Suspected: false Assessments @10:54MENTAL:Person Oriented,Time Oriented,Place Oriented,Event Oriented,SKIN:HEENT:LUNG SOUNDS:ABDOMEN:PELVIS//GI:EXTREMITIES:Left Arm: Other,PULSE:Radial: 2+ Normal,NEURO:@11:18MENTAL:SKIN:HEENT:LUNG SOUNDS:ABDOMEN:PELVIS//GI:EXTREMITIES:PULSE:NEURO: Impression Shortness of breath Procedures @10:54ALS AssessmentResponse: UnchangedSucceeded@11:08Albuterol - 2.5 Milligrams (mg) - NebulizedResponse: Improved@11:08Oxygen FlowRate: 8 Device: Nebulizer Response: ImprovedSucceeded@11:08Atrovent - 0.5 Milligrams (mg) - NebulizedResponse: Improved@11:18Albuterol - 2.5 Milligrams (mg) - NebulizedResponse: Unchanged@11:063-Lead ECGResponse: UnchangedSucceeded Timeline 10:43,Call Received 10:43,Dispatch Notified 10:45,Dispatched 10:45,En Route 10:52,On Scene 10:53,At Patient [address] [address] EMS Patient Care Report Name: EMILIANA IGNACIO [place] Room #: [facility]#: [id number] Admission: 06/12/20 Attend Phys: Discharge: Date of : 66 Report #: [id number] 10:54,ALS Assessment,Response: UnchangedSucceeded, 11:05,BP: 90/ M,PULSE: 88,RR: 20 R,SPO2: 99 Ox,ETCO2: ,BG: ,PAIN: 6,GCS: 15, 11:06,3-Lead ECG,Response: UnchangedSucceeded, 11:07,BP: 196/82 M,PULSE: 86,RR: 18 R,SPO2: 100 Ox,ETCO2: ,BG: ,PAIN: 6,GCS: 15, 11:08,Depart Scene 11:08,Albuterol - 2.5 Milligrams (mg) - Nebulized,Response: Improved 11:08,Oxygen FlowRate: 8 Device: Nebulizer Response: ImprovedSucceeded, 11:08,Atrovent - 0.5 Milligrams (mg) - Nebulized,Response: Improved 11:13,BP: 166/92 M,PULSE: 82,RR: 18 R,SPO2: 99 Ox,ETCO2: ,BG: ,PAIN: 6,GCS: 15, 11:18,Albuterol - 2.5 Milligrams (mg) - Nebulized,Response: Unchanged 11:20,At Destination 11:35,Call Closed Disclaimer v1.1 Copyright 2020 Primary Data This EMS Care Summary contains data elements from the applicable legal record (which may be displayed differently). It is designed to provide pertinent information for the following purposes: continuity of care, clinical quality, and state data reporting. The complete legal record is available to ED staff and administrators of the receiving hospital in [employer]'s Patient Tracker. All data is provided "as is."
[2020-06-12 11:24] VITALS: BP 170/71
[~2020-06-12 11:24] MED LIST changes: +TIZANIDINE4 MG/1 TA1 PO; +VISTARIL 25 MG25 M1 PO
--- NOTE | 2020-06-12 12:14 | NUR ---
ATTEMPTED IV X 2 SINCE ARRIVAL, DIFFICULT STICK HAS ONE ARM THAT CAN BE USED IV TEAM INFORMED . DR SALEEM AWARE
[2020-06-12 13:07] LABS: ABSOLUTE NEUTROPHILS 4.4 thou/uL (1.4-8.2); BASOPHILS 0.4 % (0.0-2.0); EOSINOPHILS 2.8 % (0.0-3.0); HEMATOCRIT 21.2 % (37.0-47.0); LYMPHOCYTES 15.9 % (24.0-44.0); MCH 28.5 pg (26.0-34.0); MCHC 32.8 g/dL (28.0-37.0); MCV 86.9 fL (80.0-100.0); MONOCYTES 8.7 % (1.0-8.0); PLATELET COUNT 196 thou/uL (150-400); POLYS 72.2 % (36.0-66.0); RBC 2.45 mil/uL (4.20-5.00); RDW 15.5 % (10.5-14.5); WBC 6.2 thou/uL (4.0-11.0)
[2020-06-12 13:30] LABS: ANION GAP 14 mmol/L (7-16); BUN 65 mg/dL (7-18); CALCIUM 9.6 mg/dL (8.5-10.1); CHLORIDE 100 mmol/L (98-107); CO2 26 mmol/L (21-32); CREATININE 9.9 mg/dL (0.6-1.0); GLUCOSE 152 mg/dL (74-106); POTASSIUM 5.1 mmol/L (3.5-5.1); SODIUM 140 mmol/L (136-145); TROPONIN-I <0.06 ng/mL (<0.06)
[2020-06-12 13:32] LABS: ALBUMIN 3.7 g/dL (3.4-5.0); DIRECT BILIRUBIN 0.1 mg/dL (<0.1-0.2); TOTAL BILIRUBIN 0.4 mg/dL (0.2-1.0); TOTAL PROTEIN 6.7 g/dL (6.4-8.2)
--- NOTE | 2020-06-12 14:32 | NUR ---
IV TEAM NURSE AT BEDSIDE
[2020-06-12] MEDS ORDERED: COLCRYS0.6 MG PO (16:07)
--- NOTE | 2020-06-12 16:20 | NUR ---
RT AT BEDSIDE ADMINISTERING NEB TX
[2020-06-12 16:34] VITALS: BP 179/84
[2020-06-12 19:13] VITALS: BP 179/84
[2020-06-12 19:20] VITALS: BP 179/84
[2020-06-12 20:09] VITALS: BP 179/63
[2020-06-12 21:01] LABS: HEMATOCRIT 21.4 % (37.0-47.0)
[2020-06-12 21:25] VITALS: BP 151/59; BP 161/67
[2020-06-13 00:59] VITALS: BP 154/75
[2020-06-13] MEDS ORDERED: WELLBUTRIN 75 M75 M1 PO (01:29)
[2020-06-13] MEDS ORDERED: PHENERGAN 25 MG25 MG PO (01:35)
--- NOTE | 2020-06-13 03:35 | NUR ---
Pt was an ER admit. Pt was admitted with chest pain. Requested for pain med upon arrival to the floor. Admission assessment and education completed.Pt is alert and oriented. No sign of distress noted in pt. Blood transfusion ordered and pt tolerated blood tranfusion. Pt is NPO for a stress test in the morning. No acute events overnight. Pain management accordingly. Continue to monitor. No futher needs at this time.
[2020-06-13 04:54] VITALS: BP 158/67
--- NOTE | 2020-06-13 07:16 | EKG ---
[place] [address] [facility] [place] [address] ELECTROCARDIOGRAM REPORT Name: EMILIANA IGNACIO Room #: 215-P ADM IN M.R.#: [id number] Admission: 06/12/20 Attend Phys: Dejan Bruner Discharge: Date of : 66 Report #: [id number] [facility] ED Test Date: 2020-06-12 Test Time: 11:31:15 Pat Name: EMILIANA IGNACIO Department: Room: 215 Gender: F Chief Revenue Officer: PATSY : 1970 Requested By: Gustavo Rodriguez Order Number: [id number] MD: Bennett Hewitt Measurements Intervals [place] Rate: 79 P: 28 AK: 171 QRS: 10 QRSD: 99 T: 79 QT: 421 QTc: 483 Interpretive Statements Sinus rhythm Anteroseptal infarct, age indeterminate Baseline wander in lead(s) V1 Compared to ECG 03/12/2020 19:14:50 Myocardial infarct finding now present First degree AV block no longer present Electronically Signed On 06-13-2020 7:16:11 MANAGER INVE[employer]MENT [employer]ANKING by Bennett Hewitt [email or web address] <ELECTRONICALLY SIGNED> By: Bennett Hewitt MD, [facility] 06/13/20 07 113 30 Bennett Hewitt MD, [facility] /EPI
[2020-06-13 08:04] VITALS: BP 173/62
[2020-06-13 09:36] LABS: HEMATOCRIT 26.8 % (37.0-47.0); HEMOGLOBIN 8.6 gm/dL (12.0-15.0); MCH 28.7 pg (26.0-34.0); MCHC 32.1 g/dL (28.0-37.0); MCV 89.3 fL (80.0-100.0); RBC 3.01 mil/uL (4.20-5.00); RDW 15.6 % (10.5-14.5); WBC 8.4 thou/uL (4.0-11.0)
[2020-06-13 10:09] LABS: ALBUMIN 3.6 g/dL (3.4-5.0); CALCIUM 9.5 mg/dL (8.5-10.1); PHOSPHORUS 5.8 mg/dL (2.5-4.9); POTASSIUM 5.5 mmol/L (3.5-5.1)
[2020-06-13 10:10] LABS: CREATININE 10.9 mg/dL (0.6-1.0)
--- NOTE | 2020-06-13 10:12 | EKG ---
[facility] [place] [address] ELECTROCARDIOGRAM REPORT Name: EMILIANA IGNACIO Room #: 215-P ADM IN M.R.#: [id number] Admission: 06/12/20 Attend Phys: Dejan Bruner Discharge: Date of : 66 Report #: [id number] [facility] Test Date: 2020-06-13 Test Time: 09:40:29 Pat Name: EMILIANA IGNACIO Department: Room: 215 P Gender: F House Carpenter Helper: SEN : 1970 Requested By: Jeremie Beavers Order Number: [id number] MD: Bennett Hewitt Measurements Intervals [place] Rate: 86 P: 42 GA: 171 QRS: 31 QRSD: 93 T: 82 QT: 391 QTc: 468 Interpretive Statements Sinus rhythm Low voltage, extremity leads Consider left ventricular hypertrophy Anterior Q waves, possibly due to LVH Compared to ECG 06/12/2020 11:31:15 Low QRS voltage now present Left ventricular hypertrophy now present Q waves now present Electronically Signed On 06-13-2020 10:12:24 BUMBOATER by Bennett Hewitt [email or web address] <ELECTRONICALLY SIGNED> By: Bennett Hewitt MD, [facility] 06/13/20 1012 9 9 Bennett Hewitt MD, [facility] /EPI
--- NOTE | 2020-06-13 10:52 | 2DMMODE ---
[facility] [address] [place] [address] 2 D/M-MODE ECHOCARDIOGRAM Name: EMILIANA IGNACIO Nahomi Room #: 215-P ADM IN M.R.#: [id number] Admission: 06/12/20 Attend Phys: Dejan Bruner Discharge: Date of : 66 Report #: [id number] THIS REPORT FOR: cc: Mony Harman MD, Karla L. MD Lammoglia, Francisco J. MD ~ APPROVED REPORT Study performed: 06/13/2020 09:57:32 EXAM: Comprehensive 2D, Doppler, and color-flow Echocardiogram Patient Location: Bedside Room #: 215 Status: routine BSA: 2.24 HR: 85 bpm BP: 173/62 mmHg Rhythm: NSR Other Information Study Quality: Good Indications Congestive Heart Failure Diabetes Dyspnea Chest Pain Hypertension/HDD 2D Dimensions RVDd: 37.40 mm IVSd: 16.48 (7-11mm) LVOT Diam: 18.20 (18-24mm) LVDd: 40.59 mm PWd: 15.50 (7-11mm) Ascending Ao: 33.21 (22-36mm) LVDs: 26.27 (25-40mm) Aortic Root: 31.47 mm IVC: 21.00 mm Volumes Left Atrial Volume (Systole) Single Plane 4CH: 94.85 mL Single Plane 2CH: 73.07 mL LA ESV Index: 40.00 mL/m2 Aortic Valve AoV Peak Chad.: 1.87 m/s [facility] [address] [place] [address] 2 D/M-MODE ECHOCARDIOGRAM Name: EMILIANA IGNACIO Room #: [address] [place] [address] IN ..#: [id number] Admission: 06/12/20 Attend Phys: Dejan Fernandez Discharge: Date of : 66 Report #: [id number] AO Peak Gr.: 13.98 mmHg LVOT Max P.35 mmHg LVOT Max V: 1.68 m/s YONY Vmax: 2.34 cm2 Mitral Valve E/A Ratio: 1.0 MV Decel. Time: 236.27 ms MV E Max Chad.: 1.55 m/s MV A Chad.: 1.55 m/s MV PHT: 68.52 ms IVRT: 73.82 ms Pulmonary Valve PV Peak Chad.: 1.35 m/s PV Peak Gr.: 7.24 mmHg Pulmonary Vein P Vein S: 0.70 m/s P Vein A: 0.28 m/s P Vein D: 0.90 m/s P Vein A Dur.: 87.7 msec P Vein S/D Ratio: 0.78 Tricuspid Valve TR Peak Chad.: 3.56 m/s TR Peak Gr.: 50.77 mmHg PA Pressure: 61.00 mmHg Left Ventricle The left ventricle is normal size. Moderate concentric left ventricular hypertrophy. Left ventricular systolic function is hyperdynamic. LVEF is 65-70%. Grade IV - fixed restrictive diastolic dysfunction. Right Ventricle The right ventricle is normal size. The right ventricular systolic function is normal. Atria Left atrium is dilated. Right atrium is dilated. Aortic Valve The aortic valve is normal in structure. No aortic regurgitation is present. There is no aortic valvular stenosis. Mitral Valve The mitral valve is normal in structure. Mild mitral regurgitation. No evidence of mitral valve stenosis. [facility] [place] [place] [address] 2 D/M-MODE ECHOCARDIOGRAM Name: EMILIANA IGNACOI Room #: 215-[facility] IN M.R.#: [id number] Admission: 06/12/20 Attend Phys: Dejan Fernandez Discharge: Date of : 66 Report #: [id number] Tricuspid Valve The tricuspid valve is normal in structure. There is mild tricuspid regurgitation. Estimated PAP 61 mmHg. There is moderate pulmonary hypertension. Pulmonic Valve The pulmonary valve is normal in structure. Trace pulmonic regurgitation. Great Vessels The aortic root is normal in size. IVC is dilated and collapses >50% with inspiration. Pericardium There is no pericardial effusion. <Conclusion> The left ventricle is normal size. LVEF is 65-70%. Left atrium is dilated. Right atrium is dilated. The aortic valve is normal in structure. The mitral valve is normal in structure. Mild mitral regurgitation. The tricuspid valve is normal in structure. There is mild tricuspid regurgitation. Estimated PAP 61 mmHg. There is moderate pulmonary hypertension. The pulmonary valve is normal in structure. Trace pulmonic regurgitation. There is no pericardial effusion. <ELECTRONICALLY SIGNED> By: Jeff Yañez MD 06/13/201051 51 51 Jeff Yañez MD /INF
--- NOTE | 2020-06-13 11:46 | NUR ---
ASSUMED CARE OF PT AT 0700, PT REPORTS CHEST PAIN HAS BEEN ONGOING WHEN SHE LAYS FLAT IN BED. NURSE REPORTED CONSULTED CARDIO. NEW ORDERS FOR TROPONIN, ECHO, EKG WERE GIVEN. PT REPORTS FEELING NAUSEATED, NURSE GAVE ZOFRAN ORDERED. PT CURRENTLY NPO, CALL LIGHT IN REACH, WILL CONTINUE TO MONITOR.
[2020-06-13 16:40] VITALS: BP 168/68
[2020-06-13 17:53] VITALS: BP 168/68
--- NOTE | 2020-06-13 17:58 | NUR ---
PT ARRIVED ON UNIT FROM IGNITION SPECIALIST AOX4, VSS, DRESSING SITE ON RIGHT GROIN AREA IS CDI. PT EDUCATED BY NURSE TO HOLD PRESSURE ON THE DRESSING SITE WHEN COUGHING. PT DENIES PAIN AT THIS TIME. CALL LIGHT IN REACH, WILL CONTINUE TO MONITOR.
--- NOTE | 2020-06-13 18:11 | CATHLAB ---
[facility] [place] [address] INVASIVE PROCEDURE REPORT Name: EMILIANA IGNACIO Room #: 215-P ADM IN M.R.#: [id number] Admission: 06/12/20 Attend Phys: Dejan Paulo Franc Discharge: Date of : 66 Report #: [id number] THIS REPORT FOR: cc: Mony Harman MD, Karla L. MD Mancuso, Gerald M. MD [facility] ~ APPROVED REPORT Study performed: 06/13/2020 14:51:32 Patient Details Patient Status: In-Patient Room #: The patient is a 49 year-old female Event Personnel Jeremie Beavers Diesel Tractor Operator, Lula Feliz RN RN, Evelin Andrews RTR, José Kenney Alison RT(R)() Monitor Procedures Performed Art Access - R femoral artery* Rashawn Access - R femoral vein Right and Left Heart Cath w/or w/o Coronarie [id number] [facility] 04984 Initial Mod Sed Same Phys/QHP Gr5y 666796 Hemostasis w/ Mynx Hemostasis with Manual pressure 56248 Mod Sed Same Phys/QHP Ea 724425 Abdominal Aortography 898362 Procedure Narrative The Right Groin^ was infiltrated with 1% Lidocaine subcutaneous anesthesia. A Right Heart Catheterization was performed with a 6 Fr. Wheatland-Carissa catheter and pressure were recorded. Cardiac outputs were obtained by the Thermal Dilution method. A PINNACLE 6FR Sheath #[id number] sheath was inserted into the RFA 6F^. Coronary angiography was performed using coronary diagnostic catheters. The right coronary system was accessed and visualized with a JR4 catheter. The left coronary system was accessed and visualized with a JL4 catheter. The left ventricle was accessed and visualized with a PIGTAIL catheter. The patient tolerated the procedure well and there were no complications associated with the procedure. There was no hematoma. Intraoperative Conscious Sedation Fentanyl 100 mcg Versed 1 mg Fluoro Time: 3.16 minutes [facility] [place] [address] INVASIVE PROCEDURE REPORT Name: EMILIANA IGNACIO Room #: 215-P [facility] IN .R.#: [id number] Admission: 06/12/20 Attend Phys: Dejan Fernandez Discharge: Date of : 66 Report #: [id number] Dose: DAP 4334.60 cGycm2 Contrast Type and Amount: Omnipaque 100 ml Hemodynamics The right atrial mean pressure is 22 mmHg. The right ventricular pressure is 77/17 mmHg. The pulmonary artery pressure is 77/32 mmHg with a mean of 56 mmHg. The mean pulmonary capillary wedge pressure is 47 mmHg. The aortic pressure is 188/78 mmHg with a mean of 51 mmHg. The left ventricular pressure is 171/11 mmHg with a mean of mmHg. The left ventricular end diastolic pressure is 35 mmHg. Conclusion #1. Successful right heart catheterization with cardiac output by thermodilution. See above hemodynamics. Marked elevation pulmonary pressures volume overload. #2 hyperdynamic LV function EF 70% #3 abdominal aortogram is mildly ectatic but no aneurysm. Attenuated renal arteries are noted. #4 coronary anatomy reveals a right dominant system there is no occlusive disease. These are large widely patent coronary arteries. LAD wraps the apex. Recommendations and plan: Continue aggressive risk factor modification. Will need aggressive diuresis per dialysis. Have discussed with nephrology. <ELECTRONICALLY SIGNED> By: Jeremie Beavers MD, FACC 06/13/201809 09 09 Jeremie Beavers MD, FACC /INF
[2020-06-13 19:19] VITALS: BP 172/65
[2020-06-14 00:21] VITALS: BP 146/62
[2020-06-14 05:23] VITALS: BP 203/64
[2020-06-14 05:38] LABS: HEMATOCRIT 24.2 % (37.0-47.0); HEMOGLOBIN 8.1 gm/dL (12.0-15.0); MCH 28.9 pg (26.0-34.0); MCHC 33.3 g/dL (28.0-37.0); MCV 86.8 fL (80.0-100.0); RBC 2.79 mil/uL (4.20-5.00); RDW 15.2 % (10.5-14.5); WBC 5.6 thou/uL (4.0-11.0)
[2020-06-14 05:55] LABS: ALBUMIN 3.4 g/dL (3.4-5.0); CALCIUM 9.2 mg/dL (8.5-10.1); PHOSPHORUS 5.6 mg/dL (2.5-4.9); POTASSIUM 5.1 mmol/L (3.5-5.1)
[2020-06-14 05:58] LABS: CREATININE 12.1 mg/dL (0.6-1.0)
--- NOTE | 2020-06-14 06:26 | NUR ---
RIGHT GROIN SITE C/D/I.NO HEMATOMA NOTED.PAIN MEDS GIVEN ORDERED.PT SLEPT.MONITOR SHOWS SR.POC CONTINUED.
--- NOTE | 2020-06-14 15:16 | NUR ---
PT IS AOX4, RECEIVED DIALYSIS TODAY. 4 LITERS TAKEN OFF, PT DENIES N/V, POOR APPETITE. PT REFUSED PAIN PILL AFTER DIALYSIS TREATMENT. FALL PRECAUTIONS IN PLACE, CALL LIGHT IN REACH. WILL CONTINUE TO MONITOR.
[2020-06-14 15:45] VITALS: BP 110/37
--- NOTE | 2020-06-14 17:25 | NUR ---
Met with patient who resdies in independent home. She uses no DME. PCP is Dr Carlito Aguilera. 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 She dializes at [facility]. She has transportation to/from dialysis. patient anticipates no needs at dc except will need transport home. Casemgt following
[2020-06-14 19:53] VITALS: BP 95/57
[2020-06-15 03:55] VITALS: BP 170/65
[2020-06-15 05:18] LABS: HEMATOCRIT 24.1 % (37.0-47.0); MCH 28.9 pg (26.0-34.0); MCHC 33.2 g/dL (28.0-37.0); MCV 86.9 fL (80.0-100.0); RBC 2.78 mil/uL (4.20-5.00); WBC 5.1 thou/uL (4.0-11.0)
--- NOTE | 2020-06-15 05:56 | NUR ---
PATIENTS CARES WERE ASSUMED AT SHIFT CHANGE. PATIENT WAS ASSESSED AND MEDS WERE PASSED. PATIENT REQUESTED AT THE START FOR IV PAIN MEDS MORPHINE OR FENTANYL. FLAT SPRING ASSEMBLER CALL AND THIS REQUEST WAS DENIED. GAVE PAIIENT PAIN MEDS THAT IS ON AUG. PATIENT DID SLEEP MOST OF THIS SHIFT WITHOUT ANY MORE CALLS OR REQUESTS
[2020-06-15 07:08] LABS: HEPATITIS B SURFACE AG Negative (Negative)
[2020-06-15 07:56] VITALS: BP 141/64
[2020-06-15 13:10] VITALS: BP 122/70
[2020-06-15 14:43] VITALS: BP 122/70
--- NOTE | 2020-06-15 16:05 | NUR ---
ASSUMED CARE OF PT AT SHIFT CHANGE. ASSESSMENTS CHARTED. MEDS GIVEN PER AUG. PT A&OX4, STILL FEELING NON-CARDIAC CHEST PAIN. EGD COMPLETE, NO CONCERNS. DISCHARGE ORDERS AND INSTRUCTIONS COMLETE. IV DC'D. PT GIVEN CAB VOUCHER. TAKEN TO ER ENTRANCE VIA WHEELCHAIR BY STAFF.
[2020-06-15 16:09] VITALS: BP 122/70
--- NOTE | 2020-06-20 17:06 | PATH ---
[facility] [place] [address] PATHOLOGY RPT PROCEDURE Name: EMILIANA IGNACIO Room #: 215-P [facility] IN M.R.#: [id number] Admission: 06/12/20 Date of : 66 Discharge: 06/15/20 Report #: [id number] Path Case #: [id number] LCA Accession Number: [id number] . 01 Material submitted: . esophagus - BIOPSY ESOPHAGEAL R/O EOE . 01 Clinician provided ICD-10: R07.9 N18.6 . 01 Clinical history: . CHEST PAIN, NON CARDIAC CHEST PAIN, NAUSEA, DYSPASIA, NORMAL EGD . 02 Diagnosis: Squamous mucosa, esophageal to rule out eosinophilic esophagitis, endoscopic biopsy: - Mild active esophagitis with a rare eosinophil. - No increase in eosinophils within the epithelium. - Negative for intestinal metaplasia or dysplasia. (IUV:emerson; 06/20/2020) MBR 06/20/2020 1157 Local . 02 Electronically signed: . Pamela Melendez MD, Pathologist NPI- [id number] . 01 Gross description: . The specimen is received in formalin, labeled "Emiliana Ignacio, esophageal biopsy, R/O eosinophilic esophagitis". Received are four segments of pale jones soft tissue ranging in size from 0.2 to 0.4 cm in maximum dimensions. The specimen is submitted entirely in cassette A1. (CAA; 06/16/2020) QAC/QAC 06/16/2020 1652 Local . 02 Pathologist provided ICD-10: K20.90 . 02 CPT . 491036 Specimen Comment: A courtesy copy of this report has been sent to [phone] Specimen Comment: [phone], Specimen Comment: Report sent to ,DR STEEN / DR DELGADO Performed at: [address], [place] [address] [place] [address] PATHOLOGY RPT PROCEDURE Name: EMILIANA IGNACIO Room #: 215-P DIS IN M.R.#: [id number] Admission: 06/12/20 Date of : 66 Discharge: 06/15/20 Report #: [id number] Path Case #: [id number] MD Evans Regalado MD Phone: [phone] Performed at: [address] [id number] MD Pamela Melendez MD Phone: [phone]
== END 2020-06-15 16:00 | disposition home or self-care (01) | DRG 286 ==
LOC: ER 11:24 → 2N 16:44 → EROBS 16:44 → 2N 19:58
PROVIDERS: Emergency Medicine; Internal Medicine Nephrology; Nurse Practitioner; ADMIT Hospitalist; ATTEND Hospitalist
DX: I13.2 Hypertensive heart and chronic kidney disease with heart failure and with stage 5 chronic kidney disease, or end stage renal disease (principal); N18.6 End stage renal disease; I50.31 Acute diastolic (congestive) heart failure; K92.1 Melena; R13.10 Dysphagia, unspecified; Z20.828 Contact with and (suspected) exposure to other viral communicable diseases; F41.9 Anxiety disorder, unspecified; F32.9 Major depressive disorder, single episode, unspecified; E78.5 Hyperlipidemia, unspecified; K21.9 Gastro-esophageal reflux disease without esophagitis; E11.22 Type 2 diabetes mellitus with diabetic chronic kidney disease; G89.29 Other chronic pain; E87.5 Hyperkalemia; M54.5 Low back pain; Z88.0 Allergy status to penicillin; Z88.2 Allergy status to sulfonamides; Z88.8 Allergy status to other drugs, medicaments and biological substances; Z87.891 Personal history of nicotine dependence; Z79.82 Long term (current) use of aspirin; Z79.899 Other long term (current) drug therapy; Z82.49 Family history of ischemic heart disease and other diseases of the circulatory system; Z83.3 Family history of diabetes mellitus; Z83.6 Family history of other diseases of the respiratory system; Z80.0 Family history of malignant neoplasm of digestive organs; D64.9 Anemia, unspecified
CPT/HCPCS: 10081; 32100; 62110; 62900; 70005

== ENCOUNTER 2020-07-07 08:23 | Emergency (ER) | payer OTHER ==
[~2020-07-07] VITALS: Ht 175.3 cm; Wt 102.1 kg
[~2020-07-07 08:23] MED LIST changes: +COLCRYS0.6 MG PO; +PHENERGAN 25 MG25 MG PO; +WELLBUTRIN 75 M75 M1 PO
[2020-07-07 08:58] LABS: HEMATOCRIT 24.7 % (37.0-47.0); HEMOGLOBIN 8.2 gm/dL (12.0-15.0); MCH 28.7 pg (26.0-34.0); MCHC 33.4 g/dL (28.0-37.0); MCV 85.9 fL (80.0-100.0); PLATELET COUNT 182 thou/uL (150-400); RBC 2.87 mil/uL (4.20-5.00); RDW 13.9 % (10.5-14.5); WBC 2.9 thou/uL (4.0-11.0)
[2020-07-07 09:14] LABS: CALCIUM 9.5 mg/dL (8.5-10.1); CREATININE 11.4 mg/dL (0.6-1.0); POTASSIUM 3.7 mmol/L (3.5-5.1)
[2020-07-07 09:19] LABS: TOTAL BILIRUBIN 0.4 mg/dL (0.2-1.0); TOTAL PROTEIN 7.2 g/dL (6.4-8.2)
[2020-07-07 10:41] LABS: URINE BILIRUBIN NEGATIVE (Negative); URINE BLOOD TRACE (Negative); URINE CLARITY CLEAR; URINE COLOR YELLOW; URINE GLUCOSE-RANDOM* NEGATIVE (Negative); URINE KETONES NEGATIVE (Negative); URINE LEUKOCYTES-REFLEX NEGATIVE (Negative); URINE NITRITE-REFLEX NEGATIVE (Negative); URINE PROTEIN (DIPSTICK) 2+ (Negative); URINE UROBILINOGEN 0.2 E.U./dl (0.2-1.0)
[2020-07-07 11:02] LABS: ABSOLUTE NEUTROPHILS 1.6 thou/uL (1.4-8.2); ATYPICAL LYMPHS 1 %
[2020-07-07 11:05] LABS: ANISOCYTOSIS SLIGHT; HYPOCHROMASIA 1+
[2020-07-07 11:44] LABS: SQUAMOUS 4-10 Moderate /LPF (0-3)
[2020-07-07 11:45] LABS: BACTERIA-REFLEX 1-9 Few /HPF (None Seen); CASTS None Seen /LPF (None Seen); CRYSTALS None Seen /LPF (None Seen); URINE RBC None Seen /HPF (0-2); URINE WBC-REFLEX None Seen /HPF (0-5)
[2020-07-07 14:12] VITALS: BP 142/57
[2020-07-07] MEDS ORDERED: TYLENOL325 MG PO (16:25)
[2020-07-07] MEDS ORDERED: VENTOLIN HFA INH8 GM INH (16:26)
[2020-07-07] MEDS ORDERED: COLACE100 MG PO (16:27)
[2020-07-07] MEDS ORDERED: VITAMIN D21250 MCG PO (16:28)
[2020-07-07] MEDS ORDERED: LOSARTAN POTAS100 MG PO (16:29)
[2020-07-07] MEDS ORDERED: PROTONIX40 M2 PO (16:30)
[2020-07-07] MEDS ORDERED: REMERON15 M2 PO (16:30)
== END 2020-07-07 14:23 | disposition home or self-care (01) ==
LOC: ER 08:23
PROVIDERS: Emergency Medicine
DX: E11.649 Type 2 diabetes mellitus with hypoglycemia without coma (principal); M54.5 Low back pain; F32.9 Major depressive disorder, single episode, unspecified; F41.9 Anxiety disorder, unspecified; E11.22 Type 2 diabetes mellitus with diabetic chronic kidney disease; I13.2 Hypertensive heart and chronic kidney disease with heart failure and with stage 5 chronic kidney disease, or end stage renal disease; I50.9 Heart failure, unspecified; N18.6 End stage renal disease; Z99.2 Dependence on renal dialysis; E78.5 Hyperlipidemia, unspecified; K21.9 Gastro-esophageal reflux disease without esophagitis; F17.210 Nicotine dependence, cigarettes, uncomplicated; Z98.890 Other specified postprocedural states; Z90.89 Acquired absence of other organs; Z79.899 Other long term (current) drug therapy; Z79.4 Long term (current) use of insulin; Z79.82 Long term (current) use of aspirin; Z88.0 Allergy status to penicillin; Z88.2 Allergy status to sulfonamides; Z88.8 Allergy status to other drugs, medicaments and biological substances

== ENCOUNTER 2020-07-21 15:23 | Inpatient (IN) | payer OTHER ==
[2020-07-21] VITALS (8 sets, daily range): BP systolic 123–166; BP diastolic 48–88
[~2020-07-21] VITALS: Ht 177.8 cm; Wt 99.6 kg
[~2020-07-21 15:23] MED LIST changes: +COLACE100 MG PO; +LOSARTAN POTAS100 MG PO; +REMERON15 M2 PO; +TYLENOL325 MG PO; +VENTOLIN HFA INH8 GM INH; +VITAMIN D21250 MCG PO
[2020-07-21 16:12] LABS: ABSOLUTE NEUTROPHILS 3.6 thou/uL (1.4-8.2); BASOPHILS 0.6 % (0.0-2.0); EOSINOPHILS 2.6 % (0.0-3.0); HEMATOCRIT 21.7 % (37.0-47.0); HEMOGLOBIN 7.1 gm/dL (12.0-15.0); LYMPHOCYTES 16.9 % (24.0-44.0); MCH 28.6 pg (26.0-34.0); MCHC 32.8 g/dL (28.0-37.0); MCV 87.3 fL (80.0-100.0); MONOCYTES 7.2 % (1.0-8.0); PLATELET COUNT 159 thou/uL (150-400); POLYS 72.7 % (36.0-66.0); RBC 2.49 mil/uL (4.20-5.00); RDW 14.6 % (10.5-14.5)
[2020-07-21 16:19] LABS: ANION GAP 7 mmol/L (7-16); BUN 49 mg/dL (7-18); CALCIUM 9.4 mg/dL (8.5-10.1); CHLORIDE 99 mmol/L (98-107); CO2 30 mmol/L (21-32); GLUCOSE 65 mg/dL (74-106); POTASSIUM 4.7 mmol/L (3.5-5.1); SODIUM 136 mmol/L (136-145)
--- NOTE | 2020-07-21 16:21 | EKG ---
[facility] [place] [address] ELECTROCARDIOGRAM REPORT Name: EMILIANA IGNACIO Room #: [facility]#: [id number] Admission: Attend Phys: Discharge: Date of : 66 Report #: [id number] [facility] ED Test Date: 2020-07-21 Test Time: 16:09:05 Pat Name: EMILIANA IGNACIO Department: Room: Gender: F Content Management Consultant: ROSA : 1970 Requested By: Elan Samuel Order Number: [id number] MD: Bennett Hewitt Measurements Intervals [place] Rate: 76 P: 33 AR: 198 QRS: 12 QRSD: 94 T: 87 QT: 436 QTc: 491 Interpretive Statements Sinus rhythm Borderline low voltage, extremity leads J Point elev, probable normal early repol pattern Borderline prolonged QT interval Compared to ECG 06/13/2020 09:40:29 ST (T wave) deviation now present Left ventricular hypertrophy no longer present Q waves no longer present Electronically Signed On 07-21-2020 16:21:13 PRODUCTION MANUFACTURING WORKER by Bennett Hewitt [email or web address] <ELECTRONICALLY SIGNED> By: Bennett Hewitt MD, [facility] 07/21/201620 1609 1609 Bennett Hewitt MD, FACC /EPI
[2020-07-21 16:23] LABS: APTT 23.8 Seconds (24.5-32.8); INR 1.1; PROTIME 11.6 Seconds (9.3-11.4)
[2020-07-21 16:29] LABS: ALBUMIN 3.6 g/dL (3.4-5.0); LIPASE 59 U/L (73-393); SGOT 16 U/L (15-37); SGPT 18 U/L (14-59); TOTAL BILIRUBIN 0.5 mg/dL (0.2-1.0); TOTAL PROTEIN 6.5 g/dL (6.4-8.2); TROPONIN-I <0.06 ng/mL (<0.06)
--- NOTE | 2020-07-21 18:14 | NUR ---
HANDOFF TOOL SENT
[2020-07-21 19:51] LABS: HEMATOCRIT 23.6 % (37.0-47.0); HEMOGLOBIN 7.6 gm/dL (12.0-15.0)
--- NOTE | 2020-07-21 22:02 | NUR ---
PT ADMITTED TO THE UNIT AT APPROXIMATELY 1900. UPON ARRIVAL TO THE UNIT PT WAS A/OX4 AND UP WITH ASSIST. BLOOD SUGAR UNSTABLE MENTIONED BY THE SCOURING TRAIN OPERATOR. CALLED SUPERVISER FOR DIRECTION ON IF THIS PROPER PLACEMENT FOR THE PATIENTS CURRENT CARE NEEDS. BRIDGE OPERATOR SLIP THEN DIRECTED ME TO THE NURSE PRACTIONER FOR GUIDANCE. WATER AND GAS HELPER GAVE ORDERS FOR D5 CONTINOUS INFUSION BUT THAT BEFORE GIVING IT TO CALL THE DRILLING FOREMAN TO CONSULT WITH HIM BEFORE INFUSING. DRILLING FOREMAN INSTRUCTED THAT D5 NOT BE GIVEN DUE TO THE CHEST XRAY AND TO TREAT LOW BS WITH D50. PT'S BLOOD SUGAR ELEVATED ONCE MORE WITH TREATMENT BUT STARTED TO LOWER IMMEDIATELY THEREAFTER. CONSULTED WITH BRIDGE OPERATOR SLIP OVER PT'S CONDITION. AT THIS POINT PT HAD BECOME DROWSY AND UNABLE TO ANSWER QUESTIONS. BRIDGE OPERATOR SLIP STATED SHE WOULD NEED TO BE MOVED FOR PROPER PLACEMENT AND TO RULE OUT STROKE THAT SHE WOULD NEED TO BE TAKEN FOR A CT SCAN. WATER AND GAS HELPER NOTIFIED OF THE MOVE.
[2020-07-21 22:48] LABS: HEMATOCRIT 25.1 % (37.0-47.0); HEMOGLOBIN 8.3 gm/dL (12.0-15.0); MCH 28.9 pg (26.0-34.0); MCHC 33.2 g/dL (28.0-37.0); MCV 87.3 fL (80.0-100.0); RBC 2.88 mil/uL (4.20-5.00); RDW 14.7 % (10.5-14.5); WBC 11.3 thou/uL (4.0-11.0)
--- NOTE | 2020-07-21 23:00 | NUR ---
CODE STROKE ACTIVATED FOR AMS. DIFFICULTY MAINTAINING BLOOD SUGARS. ON ASSESSMENT, PT LETHARGIC. WILL AWAKEN TO STERNAL RUB BUT QUICKLY FALLS BACK TO SLEEP. EMAR REVIEWED. NO PAIN MEDS GIVEN SINCE 1739. PT TAKEN TO CT AT 2199 THEN TO ICU. ATTEMPTED FULL NIH ASSESSMENT AT 2214 BUT PT TOO ALTERED TO COMPLETE. NARACAN GIVEN AT 2219 WITH IMMEDIATE RESULT. ATTEMPTED NIH AGAIN POST NARCAN BUT PT VERY UNCOOPERATIVE. SEE CODE STROKE WORKSHEET FOR ADDITIONAL DETAILS.
[2020-07-21 23:05] LABS: ANION GAP 9 mmol/L (7-16); BUN 55 mg/dL (7-18); CALCIUM 9.4 mg/dL (8.5-10.1); CHLORIDE 96 mmol/L (98-107); CO2 29 mmol/L (21-32); CREATININE 11.7 mg/dL (0.6-1.0); GLUCOSE 104 mg/dL (74-106); SODIUM 134 mmol/L (136-145); TROPONIN-I <0.06 ng/mL (<0.06)
[2020-07-21 23:06] LABS: POTASSIUM 6.1 mmol/L (3.5-5.1)
[2020-07-21 23:10] LABS: APTT 23.3 Seconds (24.5-32.8); FIBRINOGEN 346.1 mg/dL (210-360); INR 1.1; PROTIME 11.1 Seconds (9.3-11.4)
--- NOTE | 2020-07-21 23:45 | NUR ---
2155 - CODE STROKE WAS CALLED ON PT IN ROOM 449. USMAN PORTILLO ASKED FOR HELP TAKING PT THE HEAD CT. 2155 - INITIAL NIH WAS COMPLETED BY BANDAR, SCORE WAS 16. NIH WAS VERY DIFFICULT TO ASSESS GIVEN PT CURRENT STATE OF LETHERGY AND WILLINGNESS TO FOLLOW COMMANDS. PT WAS TAKEN DIRECTLY TO ICU AFTER CT SCAN WHERE TO PT WAS CONNECTED TO ICU MONITORS AND ASSESSED PER ICU PROTOCOL. 2219 - PER RUBINA JOE NARCAN WAS GIVEN TO PT. 2244 - THIS RN ATTEMPTED TO PERFORM ANOTHER NIH POST NARCAN ADMINISTRATION GIVEN THAT PT WAS MORE ALERT AND ABLE TO ANSWERS QUESTIONS. THIS RN GAVE PT A SCORE OR 10. AGAIN, THE NIH WAS DIFFICULT TO ASSESS DUE TO PT BEING UNCOOPERATIVE AND NOT WILLING TO ANSWER QUESTIONS AND FOLLOW COMMANDS. PT INSISTED SHE COULD NOT PARTICIPATE IN ACTIVITIES UNTIL SHE WAS "MORE COMFORTABLE AND GOT SOME WARM BLANKETS". 2306 - SPOKE WITH RUBINA JOE REGARDING CRITICAL K: 6.1. SHE ASKED THAT RENAL BE CALLED INSTEAD. ALSO SPOKE WITH RUBINA REGARDING THE ORDERS TO TRANSFUSE [address] DELGADO. HGB: 7.6. PER RUBINA SHE DOES NOT SEE A NEED TO TRANSFUSE THE BLOOD. 2330 - DR. ALLEN PAGED TO REPORT K:6.1. NO CALL BACK AT THIS TIME.
[2020-07-22] VITALS (13 sets, daily range): BP systolic 90–147; BP diastolic 40–66
[2020-07-22 05:59] LABS: HEMATOCRIT 24.3 % (37.0-47.0); MCH 28.8 pg (26.0-34.0); MCHC 32.8 g/dL (28.0-37.0); MCV 87.9 fL (80.0-100.0); RBC 2.77 mil/uL (4.20-5.00); WBC 6.7 thou/uL (4.0-11.0)
--- NOTE | 2020-07-22 08:00 | NUR ---
ASSUMMED CARE OF PATIENT FROM BECCA CHAIREZ AT 0700. DR ALLEN IN AND REVIEWED CHART AND DIALYSIS ORDERED. PATIENT REQUESTING PAIN MEDS. SPEECH IS CLEAR AND PATIENT IS ALERT AND ORIENTED. GENERALIZED WEAKNESS AND UNCOORDINATED. APPLE JUICE GIVEN FOR A BLOOD GLUCOSE OF 75.
--- NOTE | 2020-07-22 08:06 | EKG ---
[facility] [place] [address] ELECTROCARDIOGRAM REPORT Name: EMILIANA IGNACIO Room #: 244- ADM IN M.R.#: [id number] Admission: 07/21/20 Attend Phys: Dejan Bruner Discharge: Date of : 66 Report #: [id number] [facility] Test Date: 2020-07-21 Test Time: 22:25:34 Pat Name: EMILIANA IGNACIO Department: Room: 244 Gender: F Risk Developer: UNKNOWN : 1970 Requested By: Alem Russ Order Number: [id number] MD: Brandon Pederson Measurements Intervals [place] Rate: 79 P: 42 DE: 202 QRS: 54 QRSD: 104 T: 83 QT: 445 QTc: 511 Interpretive Statements Sinus rhythm Borderline prolonged DE interval Low voltage, extremity leads ST elev, probable normal early repol pattern Prolonged QT interval Baseline wander in lead(s) I,III,aVL,aVF Compared to ECG 07/21/2020 16:09:05 No significant changes found Electronically Signed On 07-22-2020 8:06:34 CONTACT PRINTER DRY FILM by Barndon Pederson [email or web address] <ELECTRONICALLY SIGNED> By: Brandon Pederson MD, [facility] 07/22/20 0806 2225 2225 Brandon Pederson MD, [facility] /EPI
--- NOTE | 2020-07-22 10:30 | NUR ---
HEMO DIALYSIS INITIATED BY BRIANNE THE DIALYSIS NURSE.
--- NOTE | 2020-07-22 16:20 | NUR ---
chart review. cm tried x 3 to reach ramya via phone call and no answer. cm called her brother ashutosh who stated " i just got off phone with her, how did she get to hospital and she said she was at home, she was supposed to be getting rehab since she fell at dialysis and [place] [facility] [place]?"/ashutosh. cm education on dcp and would check into the rehab. pt has her apartment listed and where she living. will cont following as needed for dc needs. noted she gets dialysis 3 x week and possible missed a tx rt not feeing well.
--- NOTE | 2020-07-22 17:30 | NUR ---
PATIENT TRANSFERRED TO ROOM 434 PER W/C WITH BELONGINGS. TENNIS SHOES SENT OVER FROM THE ED AND GIVEN TO PATIENT. REPORT GIVEN TO ANA ROSA CHAIREZ.
--- NOTE | 2020-07-22 18:00 | NUR ---
PT RECEIVED TO ROOM 434 FROM ICU PER W/C. DINNER TRAY SENT W/ HER. PT SETTLED INTO ROOM AND ORIENTED TO UNIT. DINNER WARMED AND PT EATING.
--- NOTE | 2020-07-23 00:29 | NUR ---
ASSESSED AT START OF SHIFT 1900. PT A&OX4 WITH C/O OF CHEST PAIN. BP CHECKED NITRO GIVENX1 WITH NO RELIEF. PT STATES NITRO DOESN'T HELP HER. BSG CHECKED 145. PT RESTLESS AND ANXIOUS STILL C/O NON CARDIAC CHEST PAIN. BP 90/47 ONCALL TODDLER NANNY NOTIFIED PT TO BE TRANSFERRED TO [facility]. PT HAD A BM THIS SHIFT ALSO REQUESTED MEDS FOR NAUSEA ZOFRAN GIVEN. BSG CHECKED 35/39 PRIOR TO TRANSFER . ORANGE JUICE GIVEN AND BLOOD SUGAR RECHECKED ON ARRIVAL TO [address] [place] [address]. REPORT GIVEN TO OTHER RN TO [facility].
[2020-07-23 02:06] LABS: HEP B SURFACE Ab(ANTI-HBS Reactive (()); HEPATITIS B SURFACE AG Negative (Negative)
[2020-07-23 08:30] VITALS: BP 132/63
[2020-07-23 16:54] VITALS: BP 113/54
--- NOTE | 2020-07-23 18:59 | NUR ---
Asumed pt care this am, had dialysis and pulled 1.5L, VS stable , some bp medications were not given due to dialysis. Pt aware for clear liquid diaet tomorrow and bowel prep to commence for colonoscopy on Saturday. Blood sugars monitoring and medicattions given as per emar. IV removed and replaced by IV team on the right fore arm. POC followed, nausea managed with medications, no sigsn or verbalizations of distress noted. Endorsed to the night nurse.
--- NOTE | 2020-07-24 01:45 | NUR ---
VSS-AFEBRILE. RESTED WELL THROUGH NIGHT WITH FEW NEEDS. NO C/O PAIN. CPAP IN PLACE AT HS, TOLERATED WELL. CALLS APPROPRIATELY FOR ANY NEEDED ASSISTANCE.
[2020-07-24 03:28] VITALS: BP 148/69
[2020-07-24 08:17] VITALS: BP 143/58
[2020-07-24 11:15] LABS: POTASSIUM 5.2 mmol/L (3.5-5.1)
[2020-07-24 11:16] LABS: CREATININE 6.7 mg/dL (0.6-1.0)
--- NOTE | 2020-07-24 13:23 | NUR ---
ASSUMED CARE OF PATIENT AFTER REPORT. ASSESSMENT CHARTED. MEDS ADMINSTERED PER EMAR FOLLOWING CLR LIQUID DIET. VSS. PATIENT VOICES SEVERE PAIN 8/10 FROM CHEST TO BACK; NON CARDIAC. PROVIDER NOTIFIED AND D/T STABLE BP, STRONGER PAIN MED ORDERED. PATIENT RE-EDUCATED ON CLR LIQUID DIET AND UNDERSTANDS. PATIENT CONTINUES TO AMBULATE W STEADY GAIT. PLAN IS FOR PREP FOR COLONOSCOPY TOMMOROW Saturday07/25/19. PATIENT VOICES NO FURTHER CONCERNS AT THIS TIME. WILL CONTINUE TO MONITOR AND FOLLOW POC
--- NOTE | 2020-07-24 15:12 | NUR ---
PATIENT CONTINUES TO VOICE PAIN 01/24. PROVIDER DENIED REQUEST FOR STRONGER PAIN MEDICATION; PATIENT HX. OF DRUG SEEKING BEHAVIOR, OPIOID & OTHER RECREATIONAL DRUG USE. PATIENT STATED "I'M JUST GONNA LEAVE THEN BECAUSE YALL AIN'T DOIN NOTHIN FOR ME". PROVIDER NOTIFIED. PATIENT PROVIDED AMA PAPERWORK; REQUESTED SHOWER. WILL CONTINUE TO PROVIDE UPDATES
[2020-07-24 19:55] VITALS: BP 130/65
--- NOTE | 2020-07-25 03:56 | NUR ---
ASSUMED CARE OF PT AT 1900HRS. PT IS AOX4 WITH SOME CONGUSION. FALL PRECAUTION IN PLACE. PT REPORTED PAIN AND NAUSEA AND WAS TREATED WITH PRN MEDS. PT DENIED SOA. PT COMPLETED 80% OF BOWEL PREP. NO BM NOTED OF NOW. PT REPORTS THAT SHE HAS A "SLOW GUT". PT PLACED NOP AT 0300HRS FOR PROCEDURE IN THE AM. PT IS SR ON TELE. VSS AND NO S/S OF ACUTE DISTRESS. WILL CONTINUE TO MONITOR.
[2020-07-25 05:11] LABS: HEMATOCRIT 22.2 % (37.0-47.0); HEMOGLOBIN 7.3 gm/dL (12.0-15.0); MCH 28.7 pg (26.0-34.0); MCHC 32.8 g/dL (28.0-37.0); MCV 87.6 fL (80.0-100.0); RBC 2.53 mil/uL (4.20-5.00); RDW 14.4 % (10.5-14.5); WBC 3.3 thou/uL (4.0-11.0)
[2020-07-25 05:23] LABS: CALCIUM 9.2 mg/dL (8.5-10.1); POTASSIUM 4.5 mmol/L (3.5-5.1)
[2020-07-25 07:40] VITALS: BP 119/53
--- NOTE | 2020-07-25 12:10 | NUR ---
ASSUMED PT CARE THIS AM. PT VSS, A&OX4. PT HAS NO COMPLAINTS OF PAIN. FALL PRECAUTIONS IN PLACE, CALLING APPROPRIATELY WHEN NEEDED. BOWEL PREP NOT CLEAR FROM LAST NIGHT, GI INFORMED, DELAYING COLONOSCOPY UNTIL TOMORROW. ON A CLEAR LIQUID DIET FOR NOW. PT REPORTS UNDERSTANDING OF THIS. IV PATENT. MEDS TAKEN WELL. PT ON TELE. AMBULATORY TO THE BEDSIDE COMMODE.
--- NOTE | 2020-07-25 14:41 | NUR ---
ASSUMED PT CARE THIS AM. PT VSS, A&OX4. PT HAS NO COMPLAINTS OF PAIN. FALL PRECAUTIONS IN PLACE, CALLING APPROPRIATELY WHEN NEEDED. BOWEL PREP NOT CLEAR FROM LAST NIGHT, GI INFORMED, DELAYING COLONOSCOPY UNTIL TOMORROW. ON A CLEAR LIQUID DIET. PT REPORTS UNDERSTANDING OF THIS. IV PATENT, MEDS TAKEN WELL. PT ON TELE. AMBULATORY TO THE BEDSIDE COMMODE.
--- NOTE | 2020-07-25 16:02 | NUR ---
CM ATTEMTPED NUMEROUS PC'S TO PT'S ROOM THIS DAY WITH NO RESPONSE. PT TO HAVE COLONOSCOPY TOMORROW. CM FOLLOWING REGARDING DC PLANNING.
[2020-07-25 16:05] VITALS: BP 137/64
[2020-07-25 20:01] VITALS: BP 136/64
[2020-07-26 04:02] VITALS: BP 156/76
[2020-07-26 06:15] VITALS: BP 141/64
--- NOTE | 2020-07-26 07:34 | NUR ---
Assumed pt care at 1900. A/OX4,VSS. C/o non cardiac pain, medicated per EMAR with relief reported. Completed bowel prep as ordered,having loose brown stools at this time. Pt is up with AX1 to [facility]. NSR on telemetry. Has been NPO since midnight. LUE fistula positive for bruit/thrill. Fall precautions in place. Pt had a shower this morning after incontinence episode.
[2020-07-26 08:03] VITALS: BP 158/75
[2020-07-26 08:38] LABS: CALCIUM 9.1 mg/dL (8.5-10.1); POTASSIUM 5.2 mmol/L (3.5-5.1)
[2020-07-26 08:39] LABS: CREATININE 9.5 mg/dL (0.6-1.0)
[2020-07-26 09:55] LABS: HEMATOCRIT 21.2 % (37.0-47.0); MCH 28.4 pg (26.0-34.0); MCHC 32.9 g/dL (28.0-37.0); MCV 86.4 fL (80.0-100.0); RBC 2.45 mil/uL (4.20-5.00); RDW 14.3 % (10.5-14.5)
--- NOTE | 2020-07-26 12:42 | NUR ---
ASSUMED PT CARE THIS AM. PT REMAINS NPO FOR COLONOSCOPY TODAY. GIVEN PO BENADRYL PER PHYSICIAN FOR ITCHINESS. PT ON DIALYSIS THIS AM, REMOVED 1.5 LITERS OF FLUID. NO PAIN REPORTED AT THIS TIME. CALLING OUT APPROPRIATELY WHEN NEEDED. PT HAS BEEN INCONTINENT OF BOWEL AND BLADDER THIS AM. FALL PRECAUTIONS IN PLACE.
--- NOTE | 2020-07-26 13:26 | NUR ---
CARE TEAM INDICATED THAT PT IS TO HAVE A COLONOSCOPY THIS DAY. PT HAD DIALYSIS THIS AM. PT INDICATED DESIRE TO GO FOR SHORT TERM SKILLED REHAB ONE MEDICALLY STABLE. SHE ASKED THAT REFERRAL BE SENT TO [facility]. FACILITY INDICATED THAT THEY ARE ABLE TO ACCEPT AND HAVE SUBMITTED FOR INSURANCE AUTH.
[2020-07-26 21:41] VITALS: BP 116/64
[2020-07-27] VITALS (7 sets, daily range): BP systolic 135–142; BP diastolic 54–68
--- NOTE | 2020-07-27 06:47 | NUR ---
Pt. rested quietly at [facility] during the night when checked on during frequent rounds. She has been medicated for c/o non-cardiac chest pain and nausea (see emar) with some relief noted. Pt. has been alert and oriented all shift. Bed alarm is on.
[2020-07-27 08:28] LABS: HEMOGLOBIN 6.7 gm/dL (12.0-15.0); MCV 86.3 fL (80.0-100.0); RDW 14.3 % (10.5-14.5); WBC 3.1 thou/uL (4.0-11.0)
[2020-07-27 08:30] LABS: HEMATOCRIT 20.1 % (37.0-47.0); MCH 28.7 pg (26.0-34.0); MCHC 33.2 g/dL (28.0-37.0); RBC 2.33 mil/uL (4.20-5.00)
[2020-07-27 08:37] LABS: POTASSIUM 4.3 mmol/L (3.5-5.1)
[2020-07-27 08:43] LABS: ALBUMIN 3.4 g/dL (3.4-5.0); TOTAL BILIRUBIN 0.6 mg/dL (0.2-1.0); TOTAL PROTEIN 6.3 g/dL (6.4-8.2)
--- NOTE | 2020-07-27 08:55 | HC ---
[facility] [place] [address] [place] [address] CONSULTATION Name: EMILIANA IGNACIO Room #: 456-P [facility] IN M.R.#: [id number] Admission: 07/21/20 Attend Phys: Dejan Bruner Discharge: Date of : 66 Report #: [id number] THIS REPORT FOR: cc: Mony Harman MD, Karla L. MD Al-Absi,Sabine Flores MD ~ DATE OF SERVICE: 07/22/2020 REASON FOR CONSULTATION: End-stage renal disease. REASON FOR PRESENTATION: Missed her dialysis. HISTORY OF PRESENT ILLNESS: This is a very well-known patient to me. She is an end-stage renal disease patient, maintained on dialysis every Saturday, and Saturday. She presented after missing her dialysis yesterday reporting that she has been having chest pain. There seems to be some issues with noncompliance. The patient's potassium this morning was elevated at 6.1. The patient reported that she did not feel like going to the dialysis unit and decided not to go to the dialysis unit yesterday. She usually dialyzes with another group. I was asked to evaluate the patient and assist with her hemodialysis arrangement. PAST MEDICAL HISTORY: 1. End-stage renal disease, maintained on dialysis every Saturday, and Saturday. 2. Hypertension. 3. Diabetes mellitus. 4. Post-tonsillectomy. ____ MEDICATIONS: 1. Promethazine. 2. Albuterol. 3. Isosorbide mononitrate. 4. Doxazosin. 5. Carvedilol. 6. Amlodipine. 7. Sevelamer. 8. Losartan. FAMILY HISTORY: Hypertension. REVIEW OF SYSTEMS: GENERAL: Significant for weakness. [facility] [address] [place] [address] CONSULTATION Name: EMILIANA IGNACIO Room #: 456-P [facility] IN M.R.#: [id number] Admission: 07/21/20 Attend Phys: Dejan Bruner Discharge: Date of : 66 Report #: [id number] CARDIOVASCULAR: Significant for chest pain and shortness of breath. PULMONARY: Significant for chest pain and shortness of breath. GASTROINTESTINAL: No nausea or vomiting. GENITOURINARY: She is anuric. MUSCULOSKELETAL: Occasional myalgias and back pain. PHYSICAL EXAMINATION: GENERAL: She is alert, oriented. VITAL SIGNS: Blood pressure is 147/59, pulse rate is 78, respiratory rate is 11. HEAD AND NECK: No jugular venous distention. CHEST: Decreased air entry bilaterally with crackles. CARDIOVASCULAR: Regular with no rub detected. ABDOMEN: Soft, nontender. EXTREMITIES: Lower extremities, +1 edema. LABORATORY VALUES: Hemoglobin is 8. Sodium is 134, potassium 6.1, BUN is 55, creatinine is 11.7. Troponin is negative. ASSESSMENT, IMPRESSION AND PLAN: 1. End-stage renal disease. 2. Noncompliance. 3. Chest pain. 4. Hypertension. 5. Anemia. 6. Hemodialysis today. 7. Transfusion. 8. Investigate the source for her anemia. 9. Hypoglycemia. Continue with the current hypoglycemia protocol. 10. We will continue to follow, encourage compliance with medical care. <ELECTRONICALLY SIGNED> By: Sabine Haines MD 07/27/20 0855 1028 1224 Sabine Haines MD /nt
--- NOTE | 2020-07-27 12:14 | NUR ---
Blood transfusion, 1 unit PRBCs given in pre-op/GI lab, see paper documentation on chart for start/stop and VS.
--- NOTE | 2020-07-27 15:25 | NUR ---
PT WENT FOR COLONOSCORY THIS DAY. PT GETTING A UNIT OF BLOOD. AUTH WAS RECEIVED FOR PT TO GO TO [facility] UPON DISHCARGE. AUTH IS GOOD THROUGH TOMORROW. PHSYICIAN INDICATED THAT PT WILL LIKELY BE MEDICALLY STABLE TO DC TO SKILLED TOMORROW. CM NOTIFIED LIAISON AND PT. CM TO FOLLOW INDICATED WITH DC PLANNING.
--- NOTE | 2020-07-27 17:06 | NUR ---
FAXED CLINICAL UPDATE TO [facility] SPOKE WITH IGGY IN ADM SHE RECEIVED UPDATE.
--- NOTE | 2020-07-27 19:41 | NUR ---
Patient went for scheduled colonoscopy this morning. Hgb was 6.7, received 1 unit of blood in GI lab. No interventions found on emar, nurse informed in GI lab. Patient returned and was tired and weak. Assisted patient to bedside commode; standby assist. Call light was placed within reach. Small amount of urine out, no BM during shift. Assisted patient back into bed. Patient complained of nausea throughout shift. Given Zofran, appeared to help. Education provided over use of call light when using the bathroom due to fall risk from anemia and general weakness following procedure.
[2020-07-27 20:45] LABS: HEMATOCRIT 24.9 % (37.0-47.0); HEMOGLOBIN 8.2 gm/dL (12.0-15.0)
--- NOTE | 2020-07-28 04:07 | NUR ---
Pt. rested quietly at intervals during the night when checked on during frequent rounds. She c/o non-cardiac chest pain and nausea. Medicated for both (see emar) with some relief noted. Bed alarm is on.
[2020-07-28 07:57] VITALS: BP 144/69
[2020-07-28] MEDS ORDERED: HYDROCODON-ACE1 EAC7 PO (09:41)
[2020-07-28] MEDS ORDERED: CARAFATE 11 GM/10 M1 PO (09:42)
--- NOTE | 2020-07-28 11:04 | NUR ---
Nutrition Note: Pt seen for LOS. Pt noted to be on Renal diet, receives HD on TTS schedule. Appetite doing well, eating 74% of meals average. Wt fluctuating some since admission 215-219.5#, suspect fluid related. No c/o GI distress. No PU noted. Pt remains low nutritional risk at this time.
--- NOTE | 2020-07-28 12:07 | NUR ---
PT DISCHARGING TODAY TO [facility] FAXED DC ORDERS/SUMMARY TO FACILITY SPOKE WITH IGGY IN ADM SHE RECEIVED ORDERS AND ARRANGED TRANSPORT BY [facility] FOR [phone] TODAY. NOTIFIED PT'S BROTHER (BHAKTI) OF DC AND TIME OF TRANSPORT HE IS IN AGREEMENT WITH DC. UNIT NOTIFIED AND CHART COPY PER US. RN TO CALL REPORT TO [phone].
--- NOTE | 2020-07-28 13:36 | NUR ---
ASSUMED CARE OF PATIENT AT 0700. ASSESSMENT CHARTED. MEDICATIONS ADMINISTERED PER EMAR. VSS. PATIENT IS A&OX4 AND ABLE TO MAKE NEEDS KNOWN. OOB X1 ASSIST AND TOLERATING WELL. PATIENT HAD DIALYSIS THIS DAY; SUCCESSFUL. 1.5 L OF FLUID REMOVED AND NO S/S OF DISTRESS. PATIENT TO DISCHARGE THIS DAY AT APPROX. 1400. BELONGINGS W PATIENT. REPORT WILL BE CALLED TO [facility]. FALL PRECAUTIONS REMAIN IN PLACE. WILL CONTINUE TO MONITOR UNTIL DISCHARGE
--- NOTE | 2020-07-28 14:15 | NUR ---
AUTH WAS RECEIVED FOR PT TO GO TO [facility] THIS DAY. CARE TEAM INDICATED THAT PT IS MEDICALLY STABLE TO DISCHARGE AFTER DIALYSIS. [facility]AN TRANSPORT ARRANGED FOR [phone]. CHART COPY MADE. ORDERS FAXED. PT'S FAMILY NOTIFIED. PT IS AWARE THAT SHE WILL BE GOING TO THE [address] WHICH IS HER PREFERENCE. NURSE GIVEN NUMBER FOR REPORT. NO OTHER CM INTERVENTION INDICATED. CASE CLOSED.
--- NOTE | 2020-07-28 15:04 | NUR ---
PATIENT LEFT UNIT AT 1504 W WHEELCHAIR TRANSIT. IV WAS DISCONTINUED. BELONGINGS BACK WITH PATIENT. NO DISTRESS NOTED. REPORT CALLED TO NURSE SHEN AT FACILITY
--- NOTE | 2020-07-29 16:06 | PATH ---
[facility] [place] [address] PATHOLOGY RPT PROCEDURE Name: EMILIANA IGNACIO Room #: 456-P [facility] IN M.R.#: [id number] Admission: 07/21/20 Date of : 66 Discharge: 07/28/20 Report #: [id number] Path Case #: [id number] [facility] Accession Number: [id number] . 01 Material submitted: . colon - POLYP AT TRANSVERSE COLON. Modifiers: transverse . 01 Clinical history: . ANEMIA . 02 Diagnosis: Colonic mucosa "polyp at transverse colon": - Tubular adenoma. - There is no evidence of high-grade dysplasia or malignancy. (SHA:pit 07/29/2020) QTP 07/29/2020 1003 Local . 02 Electronically signed: . Evans Regalado MD, Pathologist NPI- [id number] . 01 Gross description: . Received in formalin labeled "Ignacio, Antina, polyp at transverse colon" is a fragment of jones-brown soft tissue measuring 0.5 x 0.3 x 0.2 cm. The specimen is submitted entirely in A1. [place] [place] [facility] 07/28/2020 1529 Local . 02 Pathologist provided ICD-10: D12.3 . 02 CPT . 569851 Specimen Comment: A courtesy copy of this report has been sent to [phone] Specimen Comment: Report sent to , / Dr.HOUSTON VALLECILLO Performed at: [address], [place] [id number] MD Evans Regalado MD Phone: [phone] Performed at: [address] [id number] MD Pamela Melendez MD Phone: [phone]
== END 2020-07-28 15:01 | DRG 811 ==
LOC: ER 15:23 → 4W 18:40 → EROBS 18:44 → ICU 18:44 → 4W 18:47 → ICU 22:20 → 4S 07-22 18:26 → 4W 07-23 00:10
PROVIDERS: Anesthesiology; Emergency Medicine; Hospitalist; Nurse Practitioner Family; ADMIT Hospitalist; ATTEND Hospitalist
PROC: 5A1D70Z Performance of Urinary Filtration, Intermittent, Less than 6 Hours Per Day (ICD-10-PCS; principal; 2020-07-22)
PROC: 5A1D70Z Performance of Urinary Filtration, Intermittent, Less than 6 Hours Per Day (ICD-10-PCS; 2020-07-23)
PROC: 30233N1 Transfusion of Nonautologous Red Blood Cells into Peripheral Vein, Percutaneous Approach (ICD-10-PCS; 2020-07-27)
PROC: 0DBL8ZZ Excision of Transverse Colon, Via Natural or Artificial Opening Endoscopic (ICD-10-PCS; 2020-07-27)
DX: D64.9 Anemia, unspecified (principal); N18.6 End stage renal disease; G93.41 Metabolic encephalopathy; I13.2 Hypertensive heart and chronic kidney disease with heart failure and with stage 5 chronic kidney disease, or end stage renal disease; E11.43 Type 2 diabetes mellitus with diabetic autonomic (poly)neuropathy; E11.22 Type 2 diabetes mellitus with diabetic chronic kidney disease; E87.5 Hyperkalemia; F41.9 Anxiety disorder, unspecified; F32.9 Major depressive disorder, single episode, unspecified; I50.9 Heart failure, unspecified; G89.29 Other chronic pain; M54.5 Low back pain; Z20.822 Contact with and (suspected) exposure to COVID-19; K21.9 Gastro-esophageal reflux disease without esophagitis; F17.210 Nicotine dependence, cigarettes, uncomplicated; E11.649 Type 2 diabetes mellitus with hypoglycemia without coma; E87.70 Fluid overload, unspecified; R13.10 Dysphagia, unspecified; K31.84 Gastroparesis; R07.89 Other chest pain; Z88.0 Allergy status to penicillin; Z88.2 Allergy status to sulfonamides; Z88.8 Allergy status to other drugs, medicaments and biological substances; Z82.49 Family history of ischemic heart disease and other diseases of the circulatory system; Z91.19 Patient's noncompliance with other medical treatment and regimen; Z87.01 Personal history of pneumonia (recurrent); Z79.899 Other long term (current) drug therapy; K63.5 Polyp of colon
CPT/HCPCS: 10040; 10045; 10195; 10203; 32100; 70005

== ENCOUNTER 2020-08-23 11:25 | Emergency (ER) | payer OTHER ==
[~2020-08-23] VITALS: Ht 177.8 cm; Wt 104.3 kg
[~2020-08-23 11:25] MED LIST changes: +CARAFATE 11 GM/10 M1 PO
[2020-08-23 12:20] LABS: HEMATOCRIT 26.9 % (37.0-47.0); HEMOGLOBIN 8.8 gm/dL (12.0-15.0); MCH 29.1 pg (26.0-34.0); MCHC 32.7 g/dL (28.0-37.0); MCV 89.1 fL (80.0-100.0); PLATELET COUNT 211 thou/uL (150-400); RBC 3.02 mil/uL (4.20-5.00); RDW 18.2 % (10.5-14.5); WBC 7.8 thou/uL (4.0-11.0)
[2020-08-23 12:37] LABS: ALBUMIN 3.8 g/dL (3.4-5.0); ANION GAP 12 mmol/L (7-16); BUN 58 mg/dL (7-18); CALCIUM 9.3 mg/dL (8.5-10.1); CHLORIDE 102 mmol/L (98-107); CO2 23 mmol/L (21-32); GLUCOSE 141 mg/dL (74-106); SGOT 10 U/L (15-37); SGPT 12 U/L (30-65); SODIUM 137 mmol/L (136-145); TOTAL BILIRUBIN 0.8 mg/dL (0.2-1.0); TOTAL PROTEIN 7.4 g/dL (6.4-8.2); TROPONIN-I <0.06 ng/mL (<0.06)
[2020-08-23 12:40] LABS: POTASSIUM 6.2 mmol/L (3.5-5.1)
[2020-08-23 13:28] LABS: ABSOLUTE NEUTROPHILS 6.3 thou/uL (1.4-8.2)
[2020-08-23 13:29] LABS: SCHISTOCYTES OCCASIONAL; TEARDROPS OCCASIONAL
--- NOTE | 2020-08-23 14:13 | EKG ---
[place] [address] [place] [address] ELECTROCARDIOGRAM REPORT Name: EMILIANA IGNACIO [id number] Admission: 08/23/20 Attend Phys: Discharge: Date of : 66 Report #: [id number] [facility] ED Test Date: 2020-08-23 Test Time: 11:31:28 Pat Name: EMILIANA IGNACIO Department: Room: Gender: F Family Support Specialist: IBAN : 1970 Requested By: Wilman Weiner Order Number: [id number] MD: Bennett Hewitt Measurements Intervals [place] Rate: 85 P: 36 GA: 179 QRS: 34 QRSD: 88 T: 81 QT: 401 QTc: 477 Interpretive Statements Sinus rhythm Probable left atrial enlargement Low voltage, extremity and precordial leads Compared to ECG 07/21/2020 22:25:34 Prolonged QT interval no longer present Electronically Signed On 08-23-2020 14:13:03 EDGE TRIMMER by Bennett Hewitt [email or web address] <ELECTRONICALLY SIGNED> By: Bennett Hewitt MD, [facility] 08/23/20 1413 1131 1131 Bennett Hewitt MD, FACC /EPI
[2020-08-24 03:31] LABS: AMP/METHAMP Negative (Negative); BARBITURATES Negative (Negative); BENZODIAZEPINES Negative (Negative); COCAINE POSITIVE (Negative); METHADONE Negative (Negative); OPIATES Negative (Negative); PCP Negative (Negative)
[2020-08-24 05:52] LABS: CALCIUM 9.2 mg/dL (8.5-10.1)
[2020-08-24 06:06] LABS: CREATININE 8.4 mg/dL (0.6-1.0); POTASSIUM 4.9 mmol/L (3.5-5.1)
[2020-08-24 15:55] VITALS: BP 153/70
== END 2020-08-24 15:57 | disposition home or self-care (01) ==
LOC: ER 11:25
PROVIDERS: Emergency Medicine
DX: R07.9 Chest pain, unspecified (principal); E87.5 Hyperkalemia; R45.851 Suicidal ideations; K21.9 Gastro-esophageal reflux disease without esophagitis; E11.22 Type 2 diabetes mellitus with diabetic chronic kidney disease; I13.0 Hypertensive heart and chronic kidney disease with heart failure and stage 1 through stage 4 chronic kidney disease, or unspecified chronic kidney disease; N18.9 Chronic kidney disease, unspecified; I50.9 Heart failure, unspecified; F17.210 Nicotine dependence, cigarettes, uncomplicated; Z86.2 Personal history of diseases of the blood and blood-forming organs and certain disorders involving the immune mechanism; Z79.899 Other long term (current) drug therapy; Z88.0 Allergy status to penicillin; Z88.2 Allergy status to sulfonamides; Z88.8 Allergy status to other drugs, medicaments and biological substances; Z20.822 Contact with and (suspected) exposure to COVID-19
CPT/HCPCS: 32100

== ENCOUNTER 2020-10-03 23:06 | Inpatient (IN) | payer OTHER ==
[~2020-10-03] VITALS: Ht 177.8 cm; Wt 98.4 kg
--- NOTE | ~2020-10-03 | EMS ---
[address] [address] EMS Patient Care Report Name: EMILIANA IGNACIO Room #: 170-2 ADM IN M.R.#: [id number] Admission: 10/04/20 Attend Phys: Alberto Templeton MD Discharge: Date of : 66 Report #: [id number] THIS REPORT FOR: //name// Report Transmitted: 10/04/2020 00:55 EMS Care Summary [place], [place]/[facility] Incident [id number] @ 10/03/2020 22:26 Incident Location [address] [place] [address] Patient EMILIANA IGNACIO Female, 50 Years 1970 Patient Address [address] [place], [place] [id number] Patient History Other,Angina,Congestive Heart Failure (CHF),Chronic Obstructive Pulmonary Disease (COPD),Diabetes,Hypertension (HTN),Pneumonia,Depression,Anxiety,Anaphylaxis,Dialysis, Patient Allergies Penicillin allergy,Sulfa,Bactrim,Trimethoprim, Patient Medications Norvasc, Hydroxyzine, Aspirin, Carvedilol, Nitroglycerin, Insulin, Doxazosin, Chief Complaint CP Disposition Transported No Lights/[place] Dispatch Reason Chest Pain (Non-Traumatic) Transported To [address] [address] EMS Patient Care Report Name: EMILIANA IGNACIO Room #: 170-2 ADM IN Mariaa#: [id number] Admission: 10/04/20 Attend Phys: Alberto Templeton MD Discharge: Date of : 66 Report #: [id number] RESPONDED TO CHEST PAIN AT APARTMENT. UPON ARRIVAL PT FOUND SITTING IN CHAIR ALERT AND ORIENTED. PT REPORTS HAVING SHARP CHEST PAIN THAT RADIATES TO HER BACK AND HAS PROGRESSIVELY GOT WORSE THROUGHOUT THE DAY. PT REPORTS TAKING 3 NITROS WITHIN THE LAST COUPLE HOURS AND ASA ABOUT AN HOUR AGO WITH NO RELIEF. PT REPORTS SHE HAS HX OF CHF AND PERICARDITIS ALONG WITH DIALYSIS BUT HAS NOT BEEN TO HER DIALYSIS APPT IN ABOUT A WEEK (MISSED 3 DATES). PT ASSISTED WALK TO COT AND DOWNSTAIRS. PT VITALS, 3LEAD AND 12 LEAD OBTAINED. 12 LEAD REVEALED SINUS WITH LVH, NO ST ELEVATION/DEPRESSION. PT TRANSPORTED TO [facility] WITH NO CHANGES. PT SCOOTED TO BED AND HANDRAILS UP. REPORT GIVEN TO NURSE. Initial Vitals @22:52P: 83,VA Suspected: false @22:51P: 85,R: 20,BP: 194/87, @22:59P: 81,BP: 191/88,CO: 6,SpO2: 99, @22:40P: 80,CO: 0, @22:50P: 86,CO: 5,SpO2: 99, @22:39P: 87,R: 18,BP: 184/83,Pain: 8/10,GCS: 15,SpO2: 99,Revised Trauma: 12, Assessments @22:39MENTAL:Person Oriented,Time Oriented,Event Oriented,Place Oriented,SKIN:HEENT:Head/Face: No Abnormalities,Neck/Airway: No Abnormalities,LUNG SOUNDS:General: No Abnormalities,Left Upper: No Abnormalities,Right Upper: No Abnormalities,Left Lower: No Abnormalities,Right Lower: No Abnormalities,ABDOMEN:General: No Abnormalities,Left Upper: No Abnormalities,Right Upper: No Abnormalities,Left Lower: No Abnormalities,Right Lower: No Abnormalities,PELVIS//GI:No Abnormalities,EXTREMITIES:Left Arm: No Abnormalities,Right Arm: No Abnormalities,Left Leg: No Abnormalities,Right Leg: No Abnormalities,PULSE:NEURO:No Abnormalities, Impression Chest Pain / Discomfort Procedures @22:5212-Lead ECGResponse: UnchangedSucceeded@22:39ALS AssessmentResponse: UnchangedSucceeded@22:443-Lead ECGResponse: UnchangedSucceeded@PTANitrostat - 0.4 Milligrams (mg) - Sublingual@PTAAspirin - 324 Milligrams (mg) - Oral Timeline MILLSTONE CLEANER,Nitrostat - 0.4 Milligrams (mg) - Sublingual, M[employer]ST[employer] CLE[employer]ER,Aspirin - 324 Milligrams (mg) - Oral, 22:24,Call Received 22:24,Dispatch Notified 22:26,Dispatched 22:27,En Route 22:36,On Scene 22:39,At Patient [address] [address] EMS Patient Care Report Name: EMILIANA IGNACIO Room #: 170-2 ADM IN M.R.#: [id number] Admission: 10/04/20 Attend Phys: Alberto Templeton MD Discharge: Date of : 66 Report #: [id number] 22:39,BP: 184/83 M,PULSE: 87,RR: 18 R,SPO2: 99 Ox,ETCO2: ,BG: ,PAIN: 8,GCS: 15, 22:39,ALS Assessment,Response: UnchangedSucceeded, 22:40,BP: / M,PULSE: 80,RR: R,SPO2: Ox,ETCO2: ,BG: ,PAIN: ,GCS: , 22:44,3-Lead ECG,Response: UnchangedSucceeded, 22:50,BP: / M,PULSE: 86,RR: R,SPO2: 99 Ox,ETCO2: ,BG: ,PAIN: ,GCS: , 22:51,BP: 194/87 M,PULSE: 85,RR: 20 R,SPO2: Ox,ETCO2: ,BG: ,PAIN: ,GCS: , 22:52,12-Lead ECG,Response: UnchangedSucceeded, 22:52,BP: / M,PULSE: 83,RR: R,SPO2: Ox,ETCO2: ,BG: ,PAIN: ,GCS: , 22:53,Depart Scene 22:59,BP: 191/88 M,PULSE: 81,RR: R,SPO2: 99 Ox,ETCO2: ,BG: ,PAIN: ,GCS: , 23:12,At Destination 23:16,Call Closed Disclaimer v1.1 Copyright 2020 [employer] This EMS Care Summary contains data elements from the applicable legal record (which may be displayed differently). It is designed to provide pertinent information for the following purposes: continuity of care, clinical quality, and state data reporting. The complete legal record is available to ED staff and administrators of the receiving hospital in [employer] Patient Tracker. All data is provided "as is."
[2020-10-03 23:07] VITALS: BP 199/88
[2020-10-03] MEDS ORDERED: NITROSTAT0.4 MG SUBLING (23:26)
[2020-10-03] MEDS ORDERED: TIZANIDINE HCL4 M2 PO (23:26)
[2020-10-03] MEDS ORDERED: METHOCARBAMOL500 M2 PO (23:27)
[2020-10-03] MEDS ORDERED: METOCLOPRAMIDE 55 M1 PO (23:27)
[2020-10-03] MEDS ORDERED: LANTUS SOL100 UNIT/1 (23:28)
[2020-10-03] MEDS ORDERED: IMDUR 30 MG TAB30 M1 PO (23:28)
[2020-10-03] MEDS ORDERED: DOXAZOSIN MESYLA2 MG PO (23:28)
[2020-10-03] MEDS ORDERED: ASA81BEC PO (23:29)
[2020-10-03 23:43] LABS: HEMATOCRIT 35.3 % (37.0-47.0); HEMOGLOBIN 11.5 gm/dL (12.0-15.0); MCH 28.1 pg (26.0-34.0); MCHC 32.5 g/dL (28.0-37.0); MCV 86.4 fL (80.0-100.0); PLATELET COUNT 167 thou/uL (150-400); RBC 4.08 mil/uL (4.20-5.00); RDW 17.7 % (10.5-14.5); WBC 4.5 thou/uL (4.0-11.0)
[2020-10-03 23:49] LABS: ANION GAP 15 mmol/L (7-16); BUN 79 mg/dL (7-18); CALCIUM 8.3 mg/dL (8.5-10.1); CHLORIDE 104 mmol/L (98-107); CO2 19 mmol/L (21-32); CREATININE 14.4 mg/dL (0.6-1.0); GLUCOSE 223 mg/dL (74-106); SODIUM 138 mmol/L (136-145)
[2020-10-04 00:01] LABS: ALBUMIN 3.4 g/dL (3.4-5.0); LIPASE 141 U/L (73-393); SGOT 19 U/L (15-37); SGPT 18 U/L (14-59); TOTAL BILIRUBIN 0.6 mg/dL (0.2-1.0); TOTAL PROTEIN 6.9 g/dL (6.4-8.2); TROPONIN-I <0.06 ng/mL (<0.06)
[2020-10-04 00:09] LABS: POTASSIUM 5.7 mmol/L (3.5-5.1)
[2020-10-04 00:23] LABS: ABSOLUTE NEUTROPHILS 3.4 thou/uL (1.4-8.2); PLATELET ESTIMATE NORMAL
[2020-10-04 01:46] VITALS: BP 191/85
--- NOTE | 2020-10-04 01:46 | NUR ---
HAND OFF TOOL SENT TO CCU
[2020-10-04 02:51] VITALS: BP 199/72
[2020-10-04 04:45] VITALS: BP 149/60
--- NOTE | 2020-10-04 07:26 | NUR ---
RECEIVED REPORT FROM SHAMIR ED RN.PATIENT ARRIVED TO ROOM 219 AROUND 0245.COMPLAIN OF LEFT MIDDLE CHEST PAIN.REFUSED TYLENOL.MORPHINE IV GIVEN ORDERED; VERBALIZED RELIEF ZOFRAN GIVEN FOR NAUSEA.PATIENT OLIGURIC AND VOIDED ONCE.MONITOR SHOWS SR.POC CONTINUED.
[2020-10-04 08:30] VITALS: BP 117/71
--- NOTE | 2020-10-04 10:48 | NUR ---
met with patient who reports she lives at independent home with son. he is gone at work during day. She has home based services with medicaid 3 hours a day 7 days a week. Patients PCP Dr Carlito Aguilera. she dializes t,th,sat with [facility] and uses [facility] for transport. Patient reports feeling weak upon admission. She has hx of [facility] rehab stay last year 2019. Patient reports it was fine stay. Therapy evals ordered. casemgt following.
--- NOTE | 2020-10-04 11:08 | 2DMMODE ---
[facility] [place] [address] 2 D/M-MODE ECHOCARDIOGRAM Name: EMILIANA IGNACIO Room #: 219-P ADM IN M.R.#: [id number] Admission: 10/04/20 Attend Phys: Bruno Stanford MD Discharge: Date of : 66 Report #: [id number] THIS REPORT FOR: cc: Mony Harman MD, Karla L. MD Lammoglia, Francisco J. MD ~ APPROVED REPORT Study performed: 10/04/2020 09:44:57 EXAM: Comprehensive 2D, Doppler, and color-flow Echocardiogram Patient Location: Bedside Room #: 219 Status: routine BSA: 2.22 HR: 64 bpm BP: 149/60 mmHg Rhythm: NSR Other Information Study Quality: Good Indications Pre-Chemo Chest Pain Hx: CHF, HTN, HLP, ESRD. 2D Dimensions RVDd: 30.28 mm IVSd: 22.05 (7-11mm) LVOT Diam: 21.11 (18-24mm) LVDd: 38.27 mm PWd: 18.83 (7-11mm) Ascending Ao: 35.11 (22-36mm) LVDs: 16.56 (25-40mm) Left Atrium: 45.81 (27-40mm) Aortic Root: 32.26 mm Volumes Left Atrial Volume (Systole) Single Plane 4CH: 112.86 mL Single Plane 2CH: 98.12 mL Aortic Valve AoV Peak Chad.: 1.55 m/s AO Peak Gr.: 9.67 mmHg LVOT Max P.80 mmHg LVOT Max V: 1.40 m/s [facility] [address] [place] [address] 2 D/M-MODE ECHOCARDIOGRAM Name: EMILIANA IGNACIO Room #: 219-P [facility] IN [facility]#: [id number] Admission: 10/04/20 Attend Phys: Bruno Stanford MD Discharge: Date of : 66 Report #: [id number] YONY Vmax: 3.14 cm2 Mitral Valve E/A Ratio: 1.2 MV Decel. Time: 228.08 ms MV E Max Chad.: 1.33 m/s MV A Chad.: 1.09 m/s MV PHT: 66.14 ms IVRT: 64.59 ms Pulmonary Valve PV Peak Chad.: 1.50 m/s PV Peak Gr.: 9.05 mmHg Tricuspid Valve TR Peak Chad.: 2.70 m/s RAP Estimate: 5.00 mmHg TR Peak Gr.: 29.20 mmHg PA Pressure: 34.00 mmHg Left Ventricle The left ventricle is normal size. There is normal LV segmental wall motion. Severe concentric left ventricular hypertrophy. Left ventricular systolic function is normal. LVEF is 60-65%. Moderate diastolic dysfunction is present. Right Ventricle The right ventricle is normal size. The right ventricular systolic function is normal. Atria Left atrium is dilated. The right atrium size is normal. Aortic Valve Aortic valve is trileaflet; mildly sclerotic. No aortic regurgitation is present. There is no aortic valvular stenosis. Mitral Valve Mitral valve leaflets are mildly thickened. Mild mitral annular calcification. Mild mitral regurgitation. No evidence of mitral valve stenosis. Tricuspid Valve The tricuspid valve is normal in structure. Trace tricuspid regurgitation. Estimated PAP is 35mmHg. Pulmonic Valve The pulmonary valve is normal in structure. Trace pulmonic [facility] [address] [place] [address] 2 D/M-MODE ECHOCARDIOGRAM Name: EMILIANA IGNACIO Room #: 219-P [facility] IN ..#: [id number] Admission: 10/04/20 Attend Phys: Bruno Stanford MD Discharge: Date of : 66 Report #: [id number] regurgitation. Great Vessels The aortic root is normal in size. The ascending aorta is normal in size. IVC is normal in size and collapses >50% with inspiration. Pericardium There is no pericardial effusion. <Conclusion> The left ventricle is normal size. Severe concentric left ventricular hypertrophy. There is normal LV segmental wall motion. LVEF is 60-65%. The right ventricle is normal size. Left atrium is dilated. Aortic valve is trileaflet; mildly sclerotic. No aortic regurgitation is present. Mitral valve leaflets are mildly thickened. Mild mitral annular calcification. Mild mitral regurgitation. The tricuspid valve is normal in structure. Trace tricuspid regurgitation. Estimated PAP is 35mmHg. The pulmonary valve is normal in structure. Trace pulmonic regurgitation. The aortic root is normal in size. There is no pericardial effusion. <ELECTRONICALLY SIGNED> By: Jeff Yañez MD 10/04/20 1107 1107 110 Jeff Yañez MD /INF
[2020-10-04 12:47] VITALS: BP 166/65
--- NOTE | 2020-10-04 16:21 | EKG ---
[facility] [place] [address] ELECTROCARDIOGRAM REPORT Name: EMILIANA IGNACIO Room #: 219-P [facility] IN M.R.#: [id number] Admission: 10/04/20 Attend Phys: Bruno Stanford MD Discharge: Date of : 66 Report #: [id number] [facility] ED Test Date: 2020-10-03 Test Time: 23:18:04 Pat Name: EMILIANA IGNACIO Department: Room: 219 Gender: F Potato Sorter: makayla : 1970 Requested By: Patrice Fish Order Number: [id number] MD: Brandon Pederson Measurements Intervals [place] Rate: 78 P: 38 FL: 189 QRS: -11 QRSD: 91 T: 90 QT: 439 QTc: 501 Interpretive Statements Sinus rhythm Probable anterior infarct, old Baseline wander in lead(s) V1,V2 Compared to ECG 08/23/2020 11:31:28 No significant change was found Electronically Signed On 10-04-2020 16:21:11 CDT by Brandon Pederson [email or web address] <ELECTRONICALLY SIGNED> By: Brandon Pederson MD, [facility] 10/04/20 1621 2318 231 Brandon Pederson MD, [facility] /EPI
--- NOTE | 2020-10-04 16:22 | EKG ---
[place] [address] [address] [place] [address] ELECTROCARDIOGRAM REPORT Name: EMILIANA IGNACIO Room #: 219-P ADM IN M.R.#: [id number] Admission: 10/04/20 Attend Phys: Bruno Stanford MD Discharge: Date of : 66 Report #: [id number] [facility] Test Date: 2020-10-04 Test Time: 07:53:03 Pat Name: EMILIANA IGNACIO Department: Room: 219 P Gender: F Dynamic Etching Processor: Katya Riojas : 1970 Requested By: Dary Guillen Order Number: [id number] MD: Brandon Pederson Measurements Intervals [place] Rate: 67 P: 23 WV: 191 QRS: -13 QRSD: 93 T: 85 QT: 476 QTc: 503 Interpretive Statements Sinus rhythm Inferior infarct, old Anterior infarct, old Compared to ECG 10/03/2020 23:18:04 No significant change was found Electronically Signed On 10-04-2020 16:22:38 CDT by Brandon Pederson [email or web address] <ELECTRONICALLY SIGNED> By: Brandon Pederson MD, [facility] 10/04/20 1622 0753 0753 Brandon Pederson MD, FAC /EPI
--- NOTE | 2020-10-04 18:05 | NUR ---
PT HAD DIALYSIS TODAY AND REQUESTING PAIN MEDS AND BENADRYL. DR HARPREET CORDOVA TYLENOL PO. WILL CONTINUE TO ASSESS.
[2020-10-04 19:35] VITALS: BP 176/87
[2020-10-05 03:15] VITALS: BP 197/79
[2020-10-05 08:31] VITALS: BP 187/91
[2020-10-05 12:19] VITALS: BP 153/84
--- NOTE | 2020-10-05 12:58 | NUR ---
ASSUMED CARE OF PT AT 0700, PT IS NON COMPLIANT WITH MEDS AND REFUSED MOST OF HER MORNING MEDS.
[2020-10-05 15:13] VITALS: BP 128/73
[2020-10-05 16:58] LABS: HEMOGLOBIN 12.3 gm/dL (12.0-15.0); MCH 27.3 pg (26.0-34.0); MCHC 32.5 g/dL (28.0-37.0); MCV 84.1 fL (80.0-100.0); RBC 4.52 mil/uL (4.20-5.00); RDW 17.8 % (10.5-14.5); WBC 3.3 thou/uL (4.0-11.0)
[2020-10-05 17:25] LABS: CALCIUM 8.7 mg/dL (8.5-10.1); CREATININE 7.1 mg/dL (0.6-1.0)
[2020-10-05 19:35] VITALS: BP 186/81
[2020-10-05 23:41] VITALS: BP 179/81
[2020-10-06 03:50] VITALS: BP 184/90
--- NOTE | 2020-10-06 07:09 | NUR ---
PATIENTS CARE WERE ASSUMED AT SHIFT CHANGE. PATIENT WAS ASSESSED AND MEDS WERE PASSED PATIENT CONTINUES TO PICK AND CHOOSE WHAT MEDS SHE TAKES. TREATED HER FOR NAUSEA X2 THIS SHIFT. DIALYSIS AGAIN TODAY AND POSSSIBALE D/C HOME. ROUNDING DONE .THE BED IS ANABELLA LOW AND LOCKED POSITION. BED ALARM ON.
[2020-10-06 10:35] VITALS: BP 120/76
[2020-10-06 10:46] VITALS: BP 120/76
--- NOTE | 2020-10-06 11:56 | NUR ---
DC home with hh per the attending. Discussed with the pt at bedside. She requested medicare appeal number. Medicare IM with # provided. The pt does not wish to go home today and prefers tomorrow as she does not "feel well". She did complete dialysis this morning. Hh referral discussed and pt is in agreement with for RN and therapy f/u. She has had [facility] ([facility]) in the past and would like to use them again at [place]. SNF referral offered as well if the pt feels she is not able to return directly home. She declined and stated she would feel like going home tomorrow just not today. Support provided. Message sent to the [employer] navigator and the dc life care planner will fax a referral. [place] and the attending notified of pt desire to appeal her dc today. The unit sec will make a chart copy. Will follow.
[2020-10-06 12:00] VITALS: BP 120/76
--- NOTE | 2020-10-06 14:27 | NUR ---
ASSESSMENT CHARTED. PT ALERT AND ORIENTED. HAD DIALYSIS THIS AM. ORDERS GIVEN TO DISCHARGE PT TO HOME WITH HH. PT REFUSED TO BE DISCHARGE. DR. MULLINS AND SECURITY ASSOCIATE AWARE. PT SIGNED THE APPEAL INSUARANCE FORM. NO CONCERNS AT THIS TIME.
[2020-10-06 16:12] VITALS: BP 127/58
[2020-10-06 19:28] VITALS: BP 152/73
[2020-10-07 03:06] LABS: HEP B SURFACE Ab(ANTI-HBS Reactive (()); HEPATITIS B SURFACE AG Negative (Negative)
[2020-10-07 03:19] VITALS: BP 151/79
--- NOTE | 2020-10-07 06:06 | NUR ---
PATIENTS CARES WERE ASSUMED AT SHIFT CHANGE. THIS PATIENT IS A MED/SRG PATIENT. SHE WAS DISCHARGED YESTERDAY HOWEVER SHE REFUSSED TO GO. WILL CONTINUE TO ROUND, BED IS IN A LOCKED POSITIOM, BED ALARM IS ON.
[2020-10-07 07:14] VITALS: BP 153/69
[2020-10-07 09:49] LABS: ABSOLUTE NEUTROPHILS 1.4 thou/uL (1.4-8.2); BASOPHILS 0.9 % (0.0-2.0); EOSINOPHILS 5.8 % (0.0-3.0); HEMATOCRIT 38.4 % (37.0-47.0); HEMOGLOBIN 12.2 gm/dL (12.0-15.0); LYMPHOCYTES 37.4 % (24.0-44.0); MCH 27.1 pg (26.0-34.0); MCHC 31.9 g/dL (28.0-37.0); MCV 85.1 fL (80.0-100.0); MONOCYTES 13.4 % (1.0-8.0); PLATELET COUNT 141 thou/uL (150-400); POLYS 42.5 % (36.0-66.0); RBC 4.52 mil/uL (4.20-5.00); RDW 17.2 % (10.5-14.5); WBC 3.3 thou/uL (4.0-11.0)
[2020-10-07 09:52] LABS: CALCIUM 8.9 mg/dL (8.5-10.1); POTASSIUM 4.7 mmol/L (3.5-5.1)
[2020-10-07 09:56] LABS: CREATININE 8.8 mg/dL (0.6-1.0)
[2020-10-07 11:30] VITALS: BP 127/52
[2020-10-07 15:53] VITALS: BP 125/68
--- NOTE | 2020-10-07 17:34 | NUR ---
Call back rec'd from [facility] that pt's dc was upheld and her appeal denied. Pt updated at bedside and agreeable to dc home with cab ride. Voucher provided. [facility] aware of dc and will f/u with the pt. Pt to resume her normal dialysis schedule tomorrow.
--- NOTE | 2020-10-07 17:53 | NUR ---
ASSESSMENT CHARTED. PT ALERT AND ORIENTED. VSS. HAD LARGE BM THIS SHIFT. PRN PAIN MED GIVEN WITH PARTIAL RELIEF. ORDERS GIVEN TO DISCHARGE PT TO HOME. DISCHARGE INSTRUCTIONS GIVEN TO PT. PT VERBERLISED UNDERSTANDING. PT LEFT THE FACILITY IN A CAB.
== END 2020-10-07 17:58 | disposition home health service (06) | DRG 640 ==
LOC: ER 23:06 → EROBS 10-04 01:14 → 2N 10-04 01:14
PROVIDERS: Emergency Medicine; Internal Medicine Nephrology; Nurse Practitioner; ADMIT Hospitalist; ATTEND Hospitalist
PROC: 5A1D70Z Performance of Urinary Filtration, Intermittent, Less than 6 Hours Per Day (ICD-10-PCS; principal; 2020-10-04)
PROC: 5A1D70Z Performance of Urinary Filtration, Intermittent, Less than 6 Hours Per Day (ICD-10-PCS; 2020-10-05)
PROC: 5A1D70Z Performance of Urinary Filtration, Intermittent, Less than 6 Hours Per Day (ICD-10-PCS; 2020-10-06)
DX: E87.5 Hyperkalemia (principal); N18.6 End stage renal disease; I13.2 Hypertensive heart and chronic kidney disease with heart failure and with stage 5 chronic kidney disease, or end stage renal disease; R07.89 Other chest pain; I16.0 Hypertensive urgency; F32.9 Major depressive disorder, single episode, unspecified; F41.9 Anxiety disorder, unspecified; I50.9 Heart failure, unspecified; G89.29 Other chronic pain; K21.9 Gastro-esophageal reflux disease without esophagitis; M54.5 Low back pain; E11.22 Type 2 diabetes mellitus with diabetic chronic kidney disease; E11.65 Type 2 diabetes mellitus with hyperglycemia; F17.210 Nicotine dependence, cigarettes, uncomplicated; D63.8 Anemia in other chronic diseases classified elsewhere; Z91.15 Patient's noncompliance with renal dialysis; Z79.4 Long term (current) use of insulin; Z88.0 Allergy status to penicillin; Z88.2 Allergy status to sulfonamides; Z88.8 Allergy status to other drugs, medicaments and biological substances; R09.1 Pleurisy
CPT/HCPCS: 10081; 32100

== ENCOUNTER 2020-11-02 19:29 | Emergency (ER) | payer OTHER ==
[~2020-11-02] VITALS: Ht 177.8 cm; Wt 99.8 kg
--- NOTE | ~2020-11-02 | EMS ---
[address] [address] EMS Patient Care Report Name: EMILIANA IGNACIO Room #: REG DEWAYNE Shaw#: [id number] Admission: 11/02/20 Attend Phys: Discharge: Date of : 66 Report #: [id number] THIS REPORT FOR: //name// Report Transmitted: 11/02/2020 21:32 EMS Care Summary [place], [place] Incident [id number] @ 11/02/2020 18:45 Incident Location [address] [place], [place] [id number] Patient EMILIANA IGNACIO Female, 50 Years 1970 Patient Address [address] [place], [place] [id number] Patient History Other,Angina,Congestive Heart Failure (CHF),Chronic Obstructive Pulmonary Disease (COPD),Diabetes,Hypertension (HTN),Stroke/CVA,Morbid Obesity,Pneumonia,Depression,Anxiety,Anaphylaxis,Dialysis, Patient Allergies Penicillin allergy,Sulfa,Bactrim,Trimethoprim, Patient Medications Hydroxyzine, Carvedilol, Norvasc, Nitroglycerin, Aspirin, Insulin, Doxazosin, Chief Complaint CP Disposition Transported No Lights/[place] Dispatch Reason Chest Pain (Non-Traumatic) Transported To [address] [address] EMS Patient Care Report Name: EMILIANA IGNACIO Room #: REG DEWAYNE Shaw#: [id number] Admission: 11/02/20 Attend Phys: Discharge: Date of : 66 Report #: [id number] RESPONDED TO CHEST PAIN AT APARTMENT WITH P30 ON SCENE. UPON ARRIVAL PT FOUND SITTING ON COUCH ALERT AND ORIENTED. PT IS FREQUENTLY SEEN BY EMS FOR CHEST PAIN. FF/MEDIC PHALP REPORTSPT VITALS AND PT HAS BEEN HAVING CHEST PAINS THE MAJORITY OF TODAY. DESCRIBES IT IN MIDDLE OF CHEST BUT RADIATES TO SHOULDER. PT SAYS SHE GOT DIAGNIOSED WITH [facility]ARDIT[facility] AT [facility]. PT ALSO REPORTS SOME NAUSEA AND DIARRHEA, BUT DENIES VOMITING. PT ASSISTED TO WALK TO COT. VITALS, 3LEAD AND 12 LEAD OBTAINED. 12 LEAD REVEALED NSR WITH NO ST ELEVATION/DEPRESSION. IV NOT ATTEMPTED DUE TO MINIMAL ACCESS FROM DIALYSIS SHUNT. PT TRANSPORTED TO [facility] WITH NO CHANGES. PT SCOOTED TO BED AND HANDRAILS UP. REPORT GIVEN TO NURSE. Initial Vitals @19:08P: 78,Pain: 8/10,CO: 8,UT Suspected: false @19:07P: 78,SpO2: 99, @19:05P: 79,R: 18,BP: 159/105,Glucose: 190,CO: 9,SpO2: 99, @19:09P: 78,R: 18,BP: 183/81,GCS: 15,CO: 7,SpO2: 98,Revised Trauma: 12, Assessments @18:57MENTAL:Time Oriented,Person Oriented,Place Oriented,Event Oriented,SKIN:HEENT:Head/Face: No Abnormalities,Eyes: No Abnormalities,Neck/Airway: No Abnormalities,LUNG SOUNDS:General: Diarrhea,General: Nausea,Left Upper: No Abnormalities,Right Upper: No Abnormalities,Left Lower: No Abnormalities,Right Lower: No Abnormalities,ABDOMEN:General: Diarrhea,General: Nausea,Left Upper: No Abnormalities,Right Upper: No Abnormalities,Left Lower: No Abnormalities,Right Lower: No Abnormalities,PELVIS//GI:No Abnormalities,EXTREMITIES:Left Arm: No Abnormalities,Right Arm: No Abnormalities,Left Leg: No Abnormalities,Right Leg: No Abnormalities,PULSE:NEURO:No Abnormalities,@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 Impression Chest Pain, Other (Non-Cardiac) Procedures @19:0712-Lead ECGResponse: UnchangedFailed@19:0812-Lead ECGResponse: UnchangedSucceeded@PTAAspirin - 324 Milligrams (mg) - Oral@PTANitrostat - 0.4 Milligrams (mg) - Sublingual@18:57ALS AssessmentResponse: UnchangedSucceeded@19:063-Lead ECGResponse: UnchangedSucceeded@19:04StretcherResponse: Unchanged Timeline 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,Aspirin - 324 Milligrams (mg) - Oral, 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,Nitrostat - 0.4 Milligrams (mg) - Sublingual, 18:44,Call Received 18:44,Dispatch Notified 18:45,Dispatched 18:46,En Route [address] [address] EMS Patient Care Report Name: EMILIANA IGNACIO [place] Room #: A[place]RIA Shaw#: [id number] Admission: 11/02/20 Attend Phys: Discharge: Date of : 66 Report #: [id number] 18:55,On Scene 18:57,At Patient 18:57,ALS Assessment,Response: UnchangedSucceeded, 19:04,Stretcher,Response: Unchanged 19:05,BP: 159/105 M,PULSE: 79,RR: 18 R,SPO2: 99 Ox,ETCO2: ,B,PAIN: ,GCS: , 19:06,3-Lead ECG,Response: UnchangedSucceeded, 19:07,12-Lead ECG,Response: UnchangedFailed, 19:07,BP: / M,PULSE: 78,RR: R,SPO2: 99 Ox,ETCO2: ,BG: ,PAIN: ,GCS: , 19:08,12-Lead ECG,Response: UnchangedSucceeded, 19:08,BP: / M,PULSE: 78,RR: R,SPO2: Ox,ETCO2: ,BG: ,PAIN: 8,GCS: , 19:09,BP: 183/81 M,PULSE: 78,RR: 18 R,SPO2: 98 Ox,ETCO2: ,BG: ,PAIN: ,GCS: 15, 19:10,Depart Scene 19:24,At Destination 19:39,Call Closed Disclaimer v1.1 Copyright 2020 [employer] This EMS Care Summary contains data elements from the applicable legal record (which may be displayed differently). It is designed to provide pertinent information for the following purposes: continuity of care, clinical quality, and state data reporting. The complete legal record is available to ED staff and administrators of the receiving hospital in [employer] Patient Tracker. All data is provided "as is."
[~2020-11-02 19:29] MED LIST changes: +ASA81BEC PO; +DOXAZOSIN MESYLA2 MG PO; +IMDUR 30 MG TAB30 M1 PO; +LANTUS SOL100 UNIT/1; +METHOCARBAMOL500 M2 PO; +METOCLOPRAMIDE 55 M1 PO; +NITROSTAT0.4 MG SUBLING; +TIZANIDINE HCL4 M2 PO
[2020-11-02 20:11] LABS: HEMATOCRIT 31.7 % (37.0-47.0)
[2020-11-02 20:13] LABS: HEMOGLOBIN 10.3 gm/dL (12.0-15.0); MCH 27.5 pg (26.0-34.0); MCHC 32.6 g/dL (28.0-37.0); MCV 84.2 fL (80.0-100.0); RBC 3.76 mil/uL (4.20-5.00); RDW 17.3 % (10.5-14.5); WBC 5.8 thou/uL (4.0-11.0)
[2020-11-02 20:20] LABS: ANION GAP 9 mmol/L (7-16); BUN 54 mg/dL (7-18); CALCIUM 9.2 mg/dL (8.5-10.1); CHLORIDE 98 mmol/L (98-107); CO2 27 mmol/L (21-32); CREATININE 8.9 mg/dL (0.6-1.0); GLUCOSE 228 mg/dL (74-106); POTASSIUM 4.6 mmol/L (3.5-5.1); SODIUM 134 mmol/L (136-145)
[2020-11-02 20:30] LABS: ALBUMIN 3.6 g/dL (3.4-5.0); LIPASE 165 U/L (73-393); SGOT 29 U/L (15-37); SGPT 31 U/L (14-59); TOTAL BILIRUBIN 0.2 mg/dL (0.2-1.0); TOTAL PROTEIN 6.9 g/dL (6.4-8.2); TROPONIN-I <0.06 ng/mL (<0.06)
[2020-11-02 21:45] LABS: ABSOLUTE NEUTROPHILS 3.5 thou/uL (1.4-8.2)
[2020-11-02 21:49] LABS: ANISOCYTOSIS 1+; OVALOCYTES FEW; PLATELET COUNT 113 thou/uL (150-400); POLYCHROMASIA 1+
[2020-11-02 22:31] LABS: URINE BILIRUBIN NEGATIVE (Negative); URINE BLOOD 1+ (Negative); URINE CLARITY CLEAR; URINE COLOR YELLOW; URINE GLUCOSE-RANDOM* 2+ (Negative); URINE KETONES NEGATIVE (Negative); URINE LEUKOCYTES-REFLEX NEGATIVE (Negative); URINE NITRITE-REFLEX NEGATIVE (Negative); URINE PROTEIN (DIPSTICK) 2+ (Negative); URINE SPECIFIC GRAVITY 1.015 (1.005-1.035); URINE UROBILINOGEN 0.2 E.U./dl (0.2-1.0)
[2020-11-02 23:08] LABS: BACTERIA-REFLEX 1-9 Few /HPF (None Seen); CASTS None Seen /LPF (None Seen); CRYSTALS None Seen /LPF (None Seen); MUCUS 4-6 Moderate strn/LPF (None Seen); SQUAMOUS 4-10 Moderate /LPF (0-3); URINE RBC 3-10 Few /HPF (NONE SEEN); URINE WBC-REFLEX 0-5 Rare /HPF (0-5)
[2020-11-03 00:13] LABS: AMP/METHAMP Negative (Negative); BARBITURATES Negative (Negative); BENZODIAZEPINES Negative (Negative); COCAINE POSITIVE (Negative); METHADONE Negative (Negative); OPIATES Negative (Negative); PCP Negative (Negative)
--- NOTE | 2020-11-03 08:12 | EKG ---
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
[2020-11-03 17:46] VITALS: BP 192/88
== END 2020-11-03 17:47 | disposition home or self-care (01) ==
LOC: ER 19:29
PROVIDERS: Emergency Medicine
DX: R45.851 Suicidal ideations (principal); R07.89 Other chest pain; I13.2 Hypertensive heart and chronic kidney disease with heart failure and with stage 5 chronic kidney disease, or end stage renal disease; G89.29 Other chronic pain; E11.22 Type 2 diabetes mellitus with diabetic chronic kidney disease; N18.6 End stage renal disease; I50.9 Heart failure, unspecified; F17.210 Nicotine dependence, cigarettes, uncomplicated; Z79.899 Other long term (current) drug therapy; Z79.82 Long term (current) use of aspirin; Z99.2 Dependence on renal dialysis; Z90.89 Acquired absence of other organs

== ENCOUNTER 2020-12-11 21:07 | Emergency (ER) | payer OTHER ==
[~2020-12-11] VITALS: Ht 177.8 cm; Wt 99.8 kg
[~2020-12-11 21:07] MED LIST changes: +HYDRALAZINE 2525 M1 PO; -SERTRALINE HCL50 MG PO; +ZOLOFT 50 MG TA50 MG PO
[2020-12-11] MEDS ORDERED: LYRICA 75 MG CA75 MG PO (21:37)
[2020-12-11 22:07] LABS: ABSOLUTE NEUTROPHILS 2.8 thou/uL (1.4-8.2); BASOPHILS 1.2 % (0.0-2.0); EOSINOPHILS 3.4 % (0.0-3.0); HEMATOCRIT 23.6 % (37.0-47.0); HEMOGLOBIN 7.7 gm/dL (12.0-15.0); MCH 27.8 pg (26.0-34.0); MCHC 32.7 g/dL (28.0-37.0); MCV 85.1 fL (80.0-100.0); PLATELET COUNT 192 thou/uL (150-400); POLYS 59.4 % (36.0-66.0); RBC 2.77 mil/uL (4.20-5.00); RDW 19.1 % (10.5-14.5); WBC 4.7 thou/uL (4.0-11.0)
[2020-12-11 22:20] LABS: ANION GAP 11 mmol/L (7-16); BUN 37 mg/dL (7-18); CALCIUM 7.9 mg/dL (8.5-10.1); CHLORIDE 101 mmol/L (98-107); CO2 28 mmol/L (21-32); CREATININE 8.5 mg/dL (0.6-1.0); GLUCOSE 151 mg/dL (74-106); POTASSIUM 5.1 mmol/L (3.5-5.1); SODIUM 140 mmol/L (136-145)
[2020-12-11 22:30] LABS: ALBUMIN 3.5 g/dL (3.4-5.0); SGOT 11 U/L (15-37); SGPT 22 U/L (14-59); TOTAL BILIRUBIN 0.4 mg/dL (0.2-1.0); TOTAL PROTEIN 6.9 g/dL (6.4-8.2); TROPONIN-I <0.06 ng/mL (<0.06)
[2020-12-12] MEDS ORDERED: NORCO5 PO (01:07)
[2020-12-12 01:16] VITALS: BP 189/85
--- NOTE | 2020-12-12 07:14 | EKG ---
[facility] [place] [address] ELECTROCARDIOGRAM REPORT Name: EMILIANA IGNACIO [id number] Admission: 12/11/20 Attend Phys: Discharge: 12/12/20 Date of : 66 Report #: [id number] [facility] ED Test Date: 2020-12-11 Test Time: 21:16:32 Pat Name: EMILIANA IGNACIO Department: Room: Gender: F Manager Star: SKINNY : 1970 Requested By: Patrice Fish Order Number: [id number] MD: Bennett Hewitt Measurements Intervals [place] Rate: 77 P: 40 OH: 205 QRS: 47 QRSD: 87 T: 80 QT: 434 QTc: 492 Interpretive Statements Sinus rhythm Borderline prolonged [place] interval Borderline low voltage, extremity leads Borderline prolonged QT interval Compared to ECG 11/02/2020 19:37:56 Left ventricular hypertrophy no longer present Q waves no longer present Electronically Signed On 12-12-2020 7:13:52 CDT by Bennett Hewitt [email or web address] <ELECTRONICALLY SIGNED> By: Bennett Hewitt MD, [facility] 12/12/2013 2116 15 Bennett Hewitt MD, FACC /EPI
== END 2020-12-12 01:17 | disposition home or self-care (01) ==
LOC: ER 21:07
PROVIDERS: Emergency Medicine
DX: R07.89 Other chest pain (principal); E11.22 Type 2 diabetes mellitus with diabetic chronic kidney disease; I13.2 Hypertensive heart and chronic kidney disease with heart failure and with stage 5 chronic kidney disease, or end stage renal disease; N18.6 End stage renal disease; K21.9 Gastro-esophageal reflux disease without esophagitis; G89.29 Other chronic pain; F17.210 Nicotine dependence, cigarettes, uncomplicated; Z99.2 Dependence on renal dialysis; Z98.890 Other specified postprocedural states; Z90.89 Acquired absence of other organs; Z88.0 Allergy status to penicillin; Z88.2 Allergy status to sulfonamides; Z88.1 Allergy status to other antibiotic agents

== ENCOUNTER 2020-12-14 03:23 | Inpatient (IN) | payer OTHER ==
[~2020-12-14] VITALS: Ht 177.8 cm; Wt 104.4 kg
--- NOTE | ~2020-12-14 | EMS ---
[address] [address] EMS Patient Care Report Name: EMILIANA IGNACIO Room #: 358-P [facility] IN M.RTom#: [id number] Admission: 12/14/20 Attend Phys: Alberto Templeton MD Discharge: 12/15/20 Date of : 66 Report #: [id number] THIS REPORT FOR: //name// Report Transmitted: 12/27/2020 14:16 EMS Care Summary [place], [place] Incident [id number] @ 12/14/2020 02:40 Incident Location [address] [place], [place] [id number] Patient EMILIANA IGNACIO Female, 50 Years 1970 Patient Address [address] [place], [place] [phone] Patient History Other,Angina,Congestive Heart Failure (CHF),Chronic Obstructive Pulmonary Disease (COPD),Diabetes,Hypertension (HTN),Stroke/CVA,Morbid Obesity,Pneumonia,Depression,Anxiety,Anaphylaxis,Dialysis, Patient Allergies Penicillin allergy,Sulfa,Bactrim,Tramadol,Trimethoprim, Patient Medications Insulin, Nitroglycerin, Hydroxyzine, Carvedilol, Doxazosin, Norvasc, Aspirin, Chief Complaint chest pain Disposition Transported No Lights/[place] Dispatch Reason Chest Pain (Non-Traumatic) Transported To [address] [address] EMS Patient Care Report Name: EMILIANA IGNACIO Room #: 358-P [facility] IN [facility]#: [id number] Admission: 12/14/20 Attend Phys: Alberto Templeton MD Discharge: 12/15/20 Date of : 66 Report #: [id number] Initially dispatched with [facility] for chest pain. Upon EMS arrival patient was found sitting on her couch, anxious, speaking with [facility] [employer] crew, CAOx4. Patient reports having a sudden onset of "sharp and dull" chest and epigastric pain around 0100 this morning. She stated that sitting up makes the pain less than when laying down. Patient reported taking three Nitro tabs and 324 mg Aspirin prior to EMS arrival with little to no effect. conveyor monitor showed Sinus Rhythm. Patient was assisted onto the stair chair, secured, moved to the stretcher, secured, and loaded into the ambulance. IV access point was searched for but appropriate site was not found. Patient was transported to [facility] without incident. Full report was given to RN prior to signing this document. Initial Vitals @03:03P: 92,CO: 17,SpO2: 100, @03:04P: 91,CO: 18,WV Suspected: false @03:03P: 93,BP: 165/84,WV Suspected: false @02:52P: 103,R: 20,BP: 177/84,Pain: 7/10,GCS: 15,CO: 22,SpO2: 98,Revised Trauma: 12, @03:12P: 89,R: 20,BP: 139/75,GCS: 15,CO: 12,Revised Trauma: 12, Assessments @02:50MENTAL:No Abnormalities,SKIN:No Abnormalities,HEENT:Head/Face: No Abnormalities,Eyes: No Abnormalities,Neck/Airway: No Abnormalities,LUNG SOUNDS:ABDOMEN:PELVIS//GI:EXTREMITIES:Left Arm: No Abnormalities,Right Arm: No Abnormalities,Left Leg: No Abnormalities,Right Leg: No Abnormalities,PULSE:NEURO:No Abnormalities, Impression Chest Pain / Discomfort Procedures @02:50ALS AssessmentResponse: UnchangedSucceeded@03:0412-Lead ECGResponse: UnchangedSucceeded@02:523-Lead ECGResponse: UnchangedSucceeded Timeline 02:38,Call Received 02:38,Dispatch Notified 02:40,Dispatched 02:41,En Route 02:47,On Scene 02:50,At Patient 02:50,ALS Assessment,Response: UnchangedSucceeded, 02:52,3-Lead ECG,Response: UnchangedSucceeded, 02:52,BP: 177/84 M,PULSE: 103,RR: 20 R,SPO2: 98 Ox,ETCO2: ,BG: ,PAIN: 7,GCS: 15, 03:03,BP: / M,PULSE: 92,RR: R,SPO2: 100 Ox,ETCO2: ,BG: ,PAIN: ,GCS: , [facility] [address] [place] [address] EMS Patient Care Report Name: EMILIANA IGNACIO Room #: 358-P [facility] IN [facility].#: [id number] Admission: 12/14/20 Attend Phys: Alberto Templeton MD Discharge: 12/15/20 Date of : 66 Report #: [id number] 03:03,BP: 165/84 M,PULSE: 93,RR: R,SPO2: Ox,ETCO2: ,BG: ,PAIN: ,GCS: , 03:04,12-Lead ECG,Response: UnchangedSucceeded, 03:04,BP: / M,PULSE: 91,RR: R,SPO2: Ox,ETCO2: ,BG: ,PAIN: ,GCS: , 03:08,Depart Scene 03:12,BP: 139/75 M,PULSE: 89,RR: 20 R,SPO2: Ox,ETCO2: ,BG: ,PAIN: ,GCS: 15, 03:19,At Destination 03:35,Call Closed Disclaimer v1.1 Copyright 2020 [employer] This EMS Care Summary contains data elements from the applicable legal record (which may be displayed differently). It is designed to provide pertinent information for the following purposes: continuity of care, clinical quality, and state data reporting. The complete legal record is available to ED staff and administrators of the receiving hospital in [employer] Patient Tracker. All data is provided "as is."
[~2020-12-14 03:23] MED LIST changes: +LYRICA 75 MG CA75 MG PO; +NORCO5 PO
[2020-12-14 03:25] VITALS: BP 150/63
[2020-12-14 03:44] LABS: ABSOLUTE NEUTROPHILS 3.9 thou/uL (1.4-8.2); BASOPHILS 0.8 % (0.0-2.0); EOSINOPHILS 1.9 % (0.0-3.0); HEMATOCRIT 22.5 % (37.0-47.0); HEMOGLOBIN 7.7 gm/dL (12.0-15.0); LYMPHOCYTES 20.1 % (24.0-44.0); MCH 28.7 pg (26.0-34.0); MCV 84.5 fL (80.0-100.0); MONOCYTES 8.2 % (1.0-8.0); PLATELET COUNT 179 thou/uL (150-400); RBC 2.66 mil/uL (4.20-5.00); WBC 5.7 thou/uL (4.0-11.0)
[2020-12-14 03:58] LABS: ANION GAP 10 mmol/L (7-16); BUN 23 mg/dL (7-18); CALCIUM 8.5 mg/dL (8.5-10.1); CHLORIDE 99 mmol/L (98-107); CO2 29 mmol/L (21-32); GLUCOSE 95 mg/dL (74-106); POTASSIUM 4.1 mmol/L (3.5-5.1); SODIUM 138 mmol/L (136-145)
[2020-12-14 04:10] LABS: ALBUMIN 3.6 g/dL (3.4-5.0); LIPASE 63 U/L (73-393); SGOT 12 U/L (15-37); SGPT 15 U/L (14-59); TOTAL BILIRUBIN 0.5 mg/dL (0.2-1.0); TROPONIN-I <0.06 ng/mL (<0.06)
[2020-12-14 04:36] LABS: CREATININE 6.7 mg/dL (0.6-1.0)
--- NOTE | 2020-12-14 06:45 | EKG ---
[address] [address] ELECTROCARDIOGRAM REPORT Name: EMILIANA IGNACIO Room #: 170-10 ADM IN M.R.#: [id number] Admission: 12/14/20 Attend Phys: Alberto Templeton MD Discharge: Date of : 66 Report #: [id number] [facility] ED Test Date: 2020-12-14 Test Time: 03:32:04 Pat Name: EMILIANA IGNACIO Department: Room: 170 Gender: F Rn Post Partum: MPARRichard : 1970 Requested By: Elan Saumel Order Number: [id number] MD: Bennett Hewitt Measurements Intervals [place] Rate: 86 P: 54 LA: 179 QRS: 46 QRSD: 90 T: 87 QT: 402 QTc: 481 Interpretive Statements Sinus rhythm Borderline prolonged QT interval Compared to ECG 12/11/2020 21:16:32 No significant changes Electronically Signed On 12-14-2020 6:45:33 CDT by Bennett Hewitt [email or web address] <ELECTRONICALLY SIGNED> By: Bennett Hewitt MD, [facility] 12/14/20 0645 0332 0332 Bennett Hewitt MD, FACC /EPI
[2020-12-14] MEDS ORDERED: GABAPENTIN600 M1 PO (09:47)
[2020-12-14] MEDS ORDERED: VITAMIN D325 MC3 PO (09:48)
[2020-12-14 09:49] LABS: GLUCOSE 78 mg/dL (74-106); TROPONIN-I <0.06 ng/mL (<0.06)
[2020-12-14 10:17] LABS: % SATURATION 27 % (20-39); IRON 57 ug/dL (50-170); TIBC 209 ug/dL (250-450)
[2020-12-14 11:00] LABS: FOLIC ACID 17.8 ng/mL (8.6-58.9)
--- NOTE | 2020-12-14 12:03 | NUR ---
ADMISSION NOTE PT ARRIVED TO UNIT APPOX 0815. PT BELONGINGS WITH PT, CELL PHONE PLUGGED INTO WALL PER PT REQUEST. PT A&OX4. PT INITIAL BG ON UNIT 23. PROTOCOL FOLLOWED. PT ALERT THROUGHOUT. APPROX 1.5 HOURS LATER, PT BG DROPPED AGAIN. PROTOCOL FOLLOWED. PHYSICIAN CONTACTED FOR BOTH INCIDENTS. PT HAS 2 PACKS CIG. IN BELONGINGS. EDUCATION PROVIDED ON NO SMOKING POLICY. PT VERBALIZED UNDERSTANDING, REFUSED NICOTINE PATCH.
[2020-12-14 12:48] VITALS: BP 179/90
--- NOTE | 2020-12-14 15:44 | NUR ---
INITIAL ASSESSMENT: SW reviewed chart and spoke with nursing and attending physician. Pt was admitted from home due to chest pain. Pt with hx of ESRD and goes to dialysis at [facility] clinic. PT/OT/ST ordered to evaluate pt for discharge needs. SW met with pt at bedside. Introduced role of SW. Pt was lethargic during SW visit and requested SW to return at a later time. Per chart, pt lives at home with her son. [facility] to [place] [facility] in the past. Pt's PCP is Dr. Mony Harman. SW spoke with nurse at [facility] dialysis clinic, who states pt's dialysis schedule is T-R-S 15 1300. Awaiting therapy evals at this time. SW is following to assist as needed with discharge planning.
[2020-12-14 15:59] LABS: URINE BILIRUBIN NEGATIVE (Negative); URINE BLOOD 1+ (Negative); URINE CLARITY SL CLOUDY; URINE COLOR YELLOW; URINE GLUCOSE-RANDOM* TRACE (Negative); URINE KETONES NEGATIVE (Negative); URINE LEUKOCYTES-REFLEX NEGATIVE (Negative); URINE NITRITE-REFLEX NEGATIVE (Negative); URINE PROTEIN (DIPSTICK) 2+ (Negative); URINE UROBILINOGEN 0.2 E.U./dl (0.2-1.0)
[2020-12-14 16:05] LABS: SQUAMOUS 4-10 Moderate /LPF (0-3)
[2020-12-14 16:06] LABS: AMORPHOUS PHOSPHATES Few /LPF (None Seen); BACTERIA-REFLEX >30 Many /HPF (None Seen); CASTS None Seen /LPF (None Seen); URINE RBC 3-10 Few /HPF (NONE SEEN); URINE WBC-REFLEX 0-5 Rare /HPF (0-5)
[2020-12-14 16:12] VITALS: BP 137/60
[2020-12-14 17:45] VITALS: BP 173/84
[2020-12-14 17:54] LABS: AMP/METHAMP Negative (Negative); BARBITURATES Negative (Negative); BENZODIAZEPINES Negative (Negative); COCAINE POSITIVE (Negative); METHADONE Negative (Negative); OPIATES POSITIVE (Negative); PCP Negative (Negative)
--- NOTE | 2020-12-14 18:23 | NUR ---
TOXICOLOGY SCREEN RESULTS SENT TO DR SOTO
[2020-12-14 19:41] VITALS: BP 134/60
[2020-12-15 00:08] VITALS: BP 125/61
[2020-12-15 06:16] VITALS: BP 124/58
[2020-12-15 07:30] VITALS: BP 132/58
--- NOTE | 2020-12-15 07:43 | NUR ---
ASSUMED PT CARE AT [facility], PT SLEPT WELL LAST NIGHT. HAS BEEN NPO FOR PROCEDURE THIS MORNING. DIALYSIS EXPECTED POST PROCEDURE. NO COMPLAINTS OR CONCERNS.
[2020-12-15 09:33] LABS: HEMATOCRIT 20.6 % (37.0-47.0); HEMOGLOBIN 6.8 gm/dL (12.0-15.0); PLATELET COUNT 155 thou/uL (150-400)
[2020-12-15 09:36] LABS: MCH 28.4 pg (26.0-34.0); MCHC 33.1 g/dL (28.0-37.0); MCV 85.8 fL (80.0-100.0); RDW 18.8 % (10.5-14.5); WBC 3.8 thou/uL (4.0-11.0)
[2020-12-15 09:57] LABS: ANION GAP 9 mmol/L (7-16); BUN 36 mg/dL (7-18); CALCIUM 8.1 mg/dL (8.5-10.1); CHLORIDE 100 mmol/L (98-107); CO2 29 mmol/L (21-32); GLUCOSE 126 mg/dL (74-106); MAGNESIUM 2.1 mg/dL (1.8-2.4); POTASSIUM 5.3 mmol/L (3.5-5.1); SODIUM 138 mmol/L (136-145); TROPONIN-I <0.06 ng/mL (<0.06)
[2020-12-15 10:02] LABS: CREATININE 8.7 mg/dL (0.6-1.0)
--- NOTE | 2020-12-15 10:44 | NUR ---
Consulted for DM. Pt with ESRD on dialysis 3x/wk. She reports she speaks with the RD there often. Declined additional nutritional education at this time but requested high protein supplement when diet advanced. Will order Ensure Max BID. Low nutrition risk.
[2020-12-15 11:08] VITALS: BP 133/53
[2020-12-15 11:46] LABS: ABSOLUTE NEUTROPHILS 1.7 thou/uL (1.4-8.2); ANISOCYTOSIS 2+
--- NOTE | 2020-12-15 15:01 | NUR ---
PER BLOOD BANK, BLOOD IS IN PROCESS. THEY WILL CALL WHEN READY.
--- NOTE | 2020-12-15 15:54 | NUR ---
BLOOD IS READY FROM BLOOD BANK. PT IS REC'G DIALYSIS CURRENTLY. PER DIALYSIS NURSE, TOO LATE TO ADMIN BLOOD. THIS RN WILL WAIT UNTIL DIALYSIS FINISHED TO ADMINISTER
--- NOTE | 2020-12-15 16:17 | NUR ---
SW reviewed chart and spoke with nursing and attending physician. Pt to have PIPIDA scan today. Pt receiving dialysis this afternoon. PT eval is pending. [facility] is following to assist as needed with discharge planning.
[2020-12-15 18:47] VITALS: BP 145/68
[2020-12-15 19:00] VITALS: BP 145/68
--- NOTE | 2020-12-15 22:43 | NUR ---
AMA PT HAD A IN FAMILY ASKED TO BE DISCHARGED HOME NOW. WAS DUE TO RECEIVE ONE UNIT PRBC'S FOR A HGB OF 6.8. PT REFUSED. PHONE CALL TO BRUCE SO WHO STATED PT NEEDS TO GET TRANSFUSED PER ORDER. PT WAS AGREEABLE UNTIL SHE FOUND OUT THE TRANSFUSION COULD TAKE UP TO 4 HOURS. REFUSED TRANSFUSION EDUCATED ON NEED FOR IT AND S/S TO WATCH OUT FOR. SHE "STATED SHE HAS LOW HGB ALL THE TIME AND KNOWS THE SYMPTOMS. BRUCE SO TO FLOOR TO SPEAK TO PT, SHE CALLED AND HE ADVISED THAT SHE STAY AND RECEIVE TRANSFUSION. MEDS RETRIEVED FROM PHARMACY AND GIVEN TO PATIENT. ADVISED PT TO CALL LENS SILVERER AND NOTIFY HIM THAT SHE DID NOT RECEIVE TRANSFUSION AND MAYBE SHE COULD GET IT SATURDAY WITH DIALYSIS. IV REMOVED CANULA INTACT NO S/S OF INFECTION OR PHLEBITIS AT SITE TELEMETRY REMOVED PT AMBULATED OFF UNIT INDEPENDENTLY GAIT STEADY.
== END 2020-12-15 22:48 | disposition left against medical advice (07) | DRG 291 ==
LOC: ER 03:23 → 3W 05:52 → EROBS 05:52 → 3W 08:01
PROVIDERS: Emergency Medicine; Nurse Practitioner; ADMIT Internal Medicine; ATTEND Internal Medicine
PROC: 5A1D70Z Performance of Urinary Filtration, Intermittent, Less than 6 Hours Per Day (ICD-10-PCS; principal; 2020-12-15)
DX: I13.2 Hypertensive heart and chronic kidney disease with heart failure and with stage 5 chronic kidney disease, or end stage renal disease (principal); N18.6 End stage renal disease; K59.00 Constipation, unspecified; I16.0 Hypertensive urgency; F41.9 Anxiety disorder, unspecified; I50.9 Heart failure, unspecified; F32.9 Major depressive disorder, single episode, unspecified; E11.22 Type 2 diabetes mellitus with diabetic chronic kidney disease; G89.29 Other chronic pain; M54.5 Low back pain; K20.90 Esophagitis, unspecified without bleeding; E11.649 Type 2 diabetes mellitus with hypoglycemia without coma; E78.5 Hyperlipidemia, unspecified; K21.9 Gastro-esophageal reflux disease without esophagitis; F17.210 Nicotine dependence, cigarettes, uncomplicated; D63.8 Anemia in other chronic diseases classified elsewhere; R07.89 Other chest pain; Z79.4 Long term (current) use of insulin; Z88.8 Allergy status to other drugs, medicaments and biological substances; Z88.0 Allergy status to penicillin; Z91.013 Allergy to seafood; Z79.82 Long term (current) use of aspirin; Z79.899 Other long term (current) drug therapy; Z80.0 Family history of malignant neoplasm of digestive organs; Z53.29 Procedure and treatment not carried out because of patient's decision for other reasons; R09.1 Pleurisy
CPT/HCPCS: 10879; 32100